=== PATIENT | male | born 1945 | race Caucasian/White ===

== ENCOUNTER → 2019-04-07 | Outpatient (REF) ==
[2019-04-07 14:39] LABS: RUBELLA IgG QUALITATIVE IMMUNE (IMMUNE)
== END ==
LOC: M LAB 13:25
PROVIDERS: ATTEND Nurse Practitioner Adult Health
DX: Z02.89 Encounter for other administrative examinations (principal)

== ENCOUNTER → 2019-06-04 | Outpatient (CLI) | payer BC | LOC: M LRY 16:03 | PROVIDERS: ATTEND Urology | DX: C61 Malignant neoplasm of prostate (principal) | CPT/HCPCS: 36415; G0103 ==

== ENCOUNTER → 2019-09-18 | Outpatient (CLI) | payer BC ==
[2019-09-18 19:07] LABS: HEMATOCRIT 41.5 % (42.0-52.0); HEMOGLOBIN 13.9 g/dl (13.5-17.5); MEAN CORPUSCULAR HEMOGLOBIN 32.1 pg (27.0-33.0); MEAN CORPUSCULAR HGB CONC 33.5 g/dl (32.0-36.5); MEAN CORPUSCULAR VOLUME 95.8 fl (80.0-96.0); PLATELET COUNT, AUTOMATED 275 10^3/uL (150-450); RED BLOOD COUNT 4.33 10^6/uL (4.30-6.10); WHITE BLOOD COUNT 5.2 10^3/uL (4.0-10.0)
[2019-09-18 19:19] LABS: ALT/SGPT 27 U/L (12-78); BILIRUBIN,TOTAL 0.6 MG/DL (0.2-1.0); BLOOD UREA NITROGEN 14 MG/DL (7-18); CALCIUM LEVEL 8.8 MG/DL (8.8-10.2); CARBON DIOXIDE LEVEL 28 MEQ/L (21-32); CHLORIDE LEVEL 108 MEQ/L (98-107); CHOLESTEROL LEVEL 157 MG/DL (<200); CREATININE FOR GFR 1.02 MG/DL (0.70-1.30); GLOMERULAR FILTRATION RATE > 60.0 (>42); GLUCOSE, FASTING 121 MG/DL (70-100); HDL CHOLESTEROL 67 MG/DL (>40); POTASSIUM SERUM 4.2 MEQ/L (3.5-5.1); SODIUM LEVEL 141 MEQ/L (136-145); TRIGLYCERIDES LEVEL 61 MG/DL (<150)
[2019-09-18 19:20] LABS: ALBUMIN 3.9 GM/DL (3.2-5.2); CHOLESTEROL RISK RATIO 2.343 (<5); FREE T4 1.24 NG/DL (0.76-1.46); LDL CHOLESTEROL 78 MG/DL (<100); NON-HDL-C 90 MG/DL; THYROID STIMULATING HORMONE 0.956 uIU/ML (0.358-3.740); TOTAL PROTEIN 7.2 GM/DL (6.4-8.2)
== END ==
LOC: M LRY 14:34
PROVIDERS: ATTEND Internal Medicine
DX: E11.9 Type 2 diabetes mellitus without complications (principal); E78.2 Mixed hyperlipidemia; E55.9 Vitamin D deficiency, unspecified

== ENCOUNTER → 2020-02-02 | Outpatient (CLI) | payer BC | LOC: M LRY 12:38 | PROVIDERS: ATTEND Urology | DX: C61 Malignant neoplasm of prostate (principal) | CPT/HCPCS: 36415; G0103 ==

== ENCOUNTER → 2020-03-27 | Outpatient (CLI) | payer BC ==
[2020-03-27 14:32] LABS: APPEARANCE, URINE CLEAR (CLEAR); BACTERIA, URINE AUTO NEGATIVE (NEGATIVE); BILIRUBIN, URINE AUTO NEGATIVE (NEGATIVE); BLOOD, URINE BLOOD NEGATIVE (NEGATIVE); COLOR, URINE YELLOW (YELLOW); GLUCOSE, URINE (UA) AUTO NEGATIVE (NEGATIVE); HEMATOCRIT 42.5 % (42.0-52.0); HEMOGLOBIN 13.8 g/dl (13.5-17.5); KETONE, URINE AUTO TRACE mg/dL (NEGATIVE); LEUKOCYTE ESTERASE, URINE AUTO NEGATIVE (NEGATIVE); MEAN CORPUSCULAR HGB CONC 32.5 g/dl (32.0-36.5); MEAN CORPUSCULAR VOLUME 98.6 fl (80.0-96.0); MUCUS, URINE SMALL (NEGATIVE); NITRITE, URINE AUTO NEGATIVE (NEGATIVE); PLATELET COUNT, AUTOMATED 201 10^3/uL (150-450); PROTEIN, URINE AUTO NEGATIVE (NEGATIVE); RBC, URINE AUTO 0 /HPF (0-3); RED BLOOD COUNT 4.31 10^6/uL (4.30-6.10); SPECIFIC GRAVITY URINE AUTO 1.009 (1.002-1.035); SQUAMOUS EPITHELIAL CELL UR AU 0 /HPF (0-6); UROBILINOGEN, URINE AUTO 0.2 mg/dL (0.0-2.0); WBC, URINE AUTO 1 /HPF (0-3); WHITE BLOOD COUNT 4.2 10^3/uL (4.0-10.0)
[2020-03-27 14:59] LABS: ALBUMIN 3.8 GM/DL (3.2-5.2); ALT/SGPT 27 U/L (12-78); BILIRUBIN,TOTAL 0.7 MG/DL (0.2-1.0); BLOOD UREA NITROGEN 13 MG/DL (7-18); CALCIUM LEVEL 8.9 MG/DL (8.8-10.2); CARBON DIOXIDE LEVEL 29 MEQ/L (21-32); CHLORIDE LEVEL 107 MEQ/L (98-107); CHOLESTEROL LEVEL 158 MG/DL (<200); CHOLESTEROL RISK RATIO 2.633 (<5); CREATININE FOR GFR 0.97 MG/DL (0.70-1.30); FREE T4 1.25 NG/DL (0.76-1.46); GLOMERULAR FILTRATION RATE > 60.0 (>42); GLUCOSE, FASTING 124 MG/DL (70-100); HDL CHOLESTEROL 60 MG/DL (>40); LDL CHOLESTEROL 85 MG/DL (<100); NON-HDL-C 98 MG/DL; SODIUM LEVEL 140 MEQ/L (136-145); TOTAL 25(OH) VITAMIN D 33.9 NG/ML (30.0-100.0); TOTAL PROTEIN 6.9 GM/DL (6.4-8.2); TRIGLYCERIDES LEVEL 63 MG/DL (<150)
[2020-03-27 15:14] LABS: CREATININE, URINE 45.6 MG/DL; MALB URINE SIEMENS 6.6 MG/L; MAU/CREAT RATIO 14.4 MCG/MG (0.0-30.0)
[2020-03-27 15:53] LABS: HEMOGLOBIN A1c 6.3 %
== END ==
LOC: M LRY 10:07
PROVIDERS: ATTEND Internal Medicine
DX: E11.9 Type 2 diabetes mellitus without complications (principal); E55.9 Vitamin D deficiency, unspecified; Z12.5 Encounter for screening for malignant neoplasm of prostate
CPT/HCPCS: 36415; 80053; 80061; 81001; 82043; 82306; 83036; 84439; 85027; G0103

== ENCOUNTER 2020-07-15 20:03 | Inpatient (IN) | payer BC ==
[~2020-07-15] VITALS: Ht 170.2 cm; Wt 85.5 kg
[~2020-07-15 20:03] MED LIST: SYMBICORT 160/4.5MCG INHALER 6GM INH SCH
[2020-07-15] MEDS ORDERED: ACETAMINOPHEN TAB 650MG DOSE (2X325MG) PO ONE (20:30)
[2020-07-15] MEDS ORDERED: methylPREDNISolone 125MG 2ML VIAL IV ONE (20:30)
[2020-07-15] MEDS ORDERED: IBUPROFEN 800 MG TAB PO ONE (20:30)
[2020-07-15 20:49] LABS: BASO % 0.1 % (0.0-1.0); HEMATOCRIT 46.9 % (42.0-52.0); HEMOGLOBIN 15.2 g/dl (13.5-17.5); LYMPH # 0.4 10^3/uL (1.5-5.0); LYMPH % 4.7 % (24.0-44.0); MEAN CORPUSCULAR HEMOGLOBIN 30.7 pg (27.0-33.0); MEAN CORPUSCULAR HGB CONC 32.4 g/dl (32.0-36.5); MEAN CORPUSCULAR VOLUME 94.7 fl (80.0-96.0); MONO # 0.5 10^3/uL (0.0-0.8); NEUTROPHILS # 7.4 10^3/uL (1.5-8.5); NEUTROPHILS % 88.8 % (36.0-66.0); PLATELET COUNT, AUTOMATED 182 10^3/uL (150-450); RED BLOOD COUNT 4.95 10^6/uL (4.30-6.10); WHITE BLOOD COUNT 8.3 10^3/uL (4.0-10.0)
[2020-07-15] MEDS: COMBIVENT RESPIMAT 100-20MCG INHALER 4GM INH SCH (20:59)
[2020-07-15 21:03] LABS: ABG BASE EXCESS -0.9 (-2.0-2.0); ABG HCO3 23.3 MEQ/L (22.0-26.0); ABG O2 SATURATION 97.9 % (95.0-99.0); ABG PARTIAL PRESSURE CO2 37.2 mmHg (35.0-45.0); ABG PARTIAL PRESSURE O2 97.9 mmHg (75.0-100.0); ABG STANDARD HCO3 23.8 MEQ/L (22.0-26.0); ABG TOTAL CO2 24.4 MEQ/L (23.0-31.0); ABG pH (ARTERIAL) 7.414 UNITS (7.350-7.450)
[2020-07-15] MEDS ORDERED: DOXY100C PO (21:03)
[2020-07-15] MEDS ORDERED: SIMV20TA22 PO (21:03)
[2020-07-15] MEDS ORDERED: BENZ-18 PO (21:03)
[2020-07-15] MEDS ORDERED: DORZ2SOL5 OU (21:03)
[2020-07-15] MEDS ORDERED: MONT5TAB2 PO (21:03)
[2020-07-15] MEDS ORDERED: ALBU8.5H INH (21:03)
[2020-07-15] MEDS ORDERED: TRAM50TA2 PO (21:03)
[2020-07-15] MEDS ORDERED: OMEP-221 PO (21:03)
[2020-07-15] MEDS ORDERED: PRED20TA PO (21:03)
[2020-07-15] MEDS ORDERED: LATA0.0015 OU (21:03)
[2020-07-15] MEDS ORDERED: SALMDISK INH (21:03)
[2020-07-15] MEDS ORDERED: NABU-51 PO (21:03)
--- NOTE | 2020-07-15 21:16 | REPVR ---
PROCEDURE INFORMATION: Exam: XR Chest, 1 View Exam date and time: 07/15/20 (8:54pm) Age: 74 years old Clinical indication: Covid evaluation TECHNIQUE: Imaging protocol: Portable CXR Views: 1 view COMPARISON: No relevant prior studies available FINDINGS: Lungs: Unremarkable. No consolidation. Pleural space: Unremarkable. No pleural effusions. No pneumothorax. Heart/Mediastinum: Cardiomegaly with left ventricular prominence. Bones/joints: Unremarkable. IMPRESSION: No acute findings. The Electronically signed by: Patricia Agudelo On 07/15/2020 21:16:39 PM
[2020-07-15 21:24] LABS: ALBUMIN 3.4 GM/DL (3.2-5.2); ALT/SGPT 28 U/L (12-78); BILIRUBIN,TOTAL 0.7 MG/DL (0.2-1.0); BLOOD UREA NITROGEN 13 MG/DL (7-18); CALCIUM LEVEL 8.8 MG/DL (8.8-10.2); CARBON DIOXIDE LEVEL 24 MEQ/L (21-32); CHLORIDE LEVEL 105 MEQ/L (98-107); CK-MB VALUE MASS 1.1 NG/ML (<3.6); CPK CREATINE PHOSPHOKINASE 147 U/L (39-308); CREATININE FOR GFR 0.97 MG/DL (0.70-1.30); FERRITIN 624 NG/ML (26-388); GLOMERULAR FILTRATION RATE > 60.0 (>42); GLUCOSE, FASTING 133 MG/DL (70-100); LDH LACTATE DEHYDROGENASE 367 U/L (87-241); MB/CK RELATIVE INDEX 0.75 (< OR =4); POTASSIUM SERUM 4.1 MEQ/L (3.5-5.1); SODIUM LEVEL 137 MEQ/L (136-145); TOTAL PROTEIN 7.5 GM/DL (6.4-8.2); TROPONIN I < 0.02 NG/ML (< 0.10)
[2020-07-15] MEDS ORDERED: ALBUTEROL SULFATE 2.5 MG/0.5 ML INH NEB SOLN NEB PRN (22:30)
[2020-07-15] MEDS ORDERED: MOM 30ML SUSPENSION UDC PO PRN (22:30)
[2020-07-15] MEDS ORDERED: MAALOX 30 ML SUSP *UDC PO PRN (22:30)
[2020-07-15] MEDS ORDERED: MAG SULF 1GM/100ML (MAG RUN) 1 GM in IV 1 EA IV ONE (23:00)
[2020-07-16] MEDS ORDERED: LevoFLOXacin IV 750 MG in IV 1 EA IV SCH ×2
[2020-07-16] MEDS ORDERED: traMADol 50 MG TAB PO PRN (00:30)
--- NOTE | 2020-07-16 00:32 | HPEPDOC ---
[facility] Medical History & Physical Date of Admission Jul 15, 2020 Date of Service: Jul 15, 2020 Primary Care Physician: Thong Cote MD Attending Physician: TRANG ALLEN MD History and Physical TIME OF SERVICE: 11:20 PM CHIEF COMPLAINT: Dyspnea HISTORY OF PRESENT ILLNESS: This 74-year-old gentleman developed cough productive of white sputum and shortness of breath 3 days ago and went to an urgent care center where he was diagnosed with COVID 19. He is not sure where he got the infection as he reports practicing self-isolation except for going to the grocery stores and eating out at restaurants occasionally. He has had fevers but denies having chills, nausea, vomiting or diarrhea. Sense of smell is intact, but he reports that his sense of taste is no longer intact. He denies having any rashes or lesions on his skin. Over the last few days his shortness of breath became worse despite using his asthma inhalers more than 4 times a day, therefore he decided to come to the hospital for evaluation. Per Dr. Sheehan, the patient's O2 sats were 85% on room air and his qCSI score was 6, which puts him in the moderate risk category. REVIEW OF SYSTEMS: 12 point review of systems negative except as listed in HPI PAST MEDICAL/ SURGICAL HISTORY: Chronic asthma Chronic hypertension Dyslipidemia GERD. 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 HOME MEDICATIONS: Please see below. PHYSICAL EXAMINATION: Vital Signs Date Time Temp Pulse Resp B/P (MAP) Pulse Ox O2 Delivery O2 Flow Rate FiO2 07/15/20 20:06 101.4 78 22 196/96 96 Nasal Cannula 4.0 GEN: well-nourished / well developed/ NAD INTEGUMENT: not flushed HEENT: lips acyanotic /mucus membranes moist and pink /nasal cannula in place CVS: RRR/NMRG/ radial pulses intact / no lower extremity edema LUNGS: able to speak full sentences without stopping to take a breath / occasionally coughing / lungs are clear to auscultation bilaterally on room air MSK/EXTREMITIES: NCAT NEURO: CN 2-12 are grossly intact / speech is not dysarthric PSYCH: alert and oriented to person place and time/ able to understand and f ollow all commands LABORATORY DATA: 07/15/20 20:33 07/15/20 20:33: Immature Granulocyte % (Auto) 0.4, Neutrophils (%) (Auto) 88.8H, Lymphocytes (%) (Auto) 4.7L, Monocytes (%) (Auto) 6.0H, Eosinophils (%) (Auto) 0.0, Basophils (%) (Auto) 0.1, Neutrophils # (Auto) 7.4, Lymphocytes # (Auto) 0.4L, Monocytes # (Auto) 0.5, Eosinophils # (Auto) 0.0, Basophils # (Auto) 0.0, Nucleated Red Blood Cells % (auto) 0.0, D-Dimer, Quantitative 423.82, Anion Gap 8, Glomerular Filtration Rate > 60.0, Lactic Acid Level 1.4, Calcium Level 8.8, Ferritin 624H, Total Bilirubin 0.7, Aspartate Amino Transf (AST/SGOT) 30, Alanine Aminotransferase (ALT/SGPT) 28, Alkaline Phosphatase 69, Lactate Dehydrogenase 367H, Total Creatine Kinase 147, Creatine Kinase MB 1.1, Creatine Kinase MB Relative Index 0.75, Troponin I < 0.02, C-Reactive Protein, Quantitative 11.40H, Total Protein 7.5, Albumin 3.4, Albumin/Globulin Ratio 0.8 07/15/20 20:57: Blood Gas Bicarbonate Standard 23.8, Arterial Blood pH 7.414, Arterial Blood Partial Pressure CO2 37.2, Arterial Blood Partial Pressure O2 97.9, Arterial Blood Total CO2 24.4, Arterial Blood HCO3 23.3, Arterial Blood Base Excess -0.9, Arterial Blood Oxygen Saturation 97.9 IMAGING: Chest x-ray " IMPRESSION: No acute findings. " MICROBIOLOGY: 07/15/20 Blood Culture, Received Pending ASSESSMENT: Mr. Weaver is a 74-year-old with a history of asthma, hypertension, dyslipidemia, GERD, glaucoma, and remote history of prostate cancer who presented with complaints of cough & shortness of breath that didn't improve despite using his inhalers more often; he'll be admitted for management of acute asthma exacerbation secondary to COVID 19. PLAN: 1. Acute asthma secondary to COVID 19 infection He was hypoxic on room air and now requires supplemental oxygen Both his chest x-ray and ABG were unremarkable Reasons for admission: patient has had poor response to therapy in ED & requires frequent, regular use of inhaled 2 agonists Plan: admit to medical floor / Magnesium IV / c/w supplemental O2 / continuous pulse ox / Dunebs Q6H, Albuterol Q2HP, fluticasone inhaler Q12H & c/w montelukast / IV solumedrol/ PPI to prevent steroid induced ulcer / Tessalon Pearls / he will need to be discharged with inhaled corticosteroid i.e. Fluticasone as a part of maintenance regimen per [employer] 2019 guidelines 2. COVID-19 The cough, shortness of breath, fever and dysgeusia are due to Covid His CBC and chemistry are unremarkable except for an elevated ferritin and LDH Reason for admission: qCSI score of 6 and hypoxia with oxygen dependence Plan: contact & air borne precautions /continuous pulse ox/ supplemental O2 to target O2 sats between 92-95% / in 12 H f/u repeat WBC # (if low indicates a poor prognosis), plts (if low indicates bad prognosis), CRP (if high indicates bad prognosis), INR, BMP, troponin, fibrinogen, INR, D-dimer, PT, PTT (if patie nt has DIC indicates bad prognosis), ferritin, LDH, pending procalcitonin, sputum cx, strep pneumo, legionella to r/o bacterial PNA we will start empiric Levofloxacin, / because he is hypoxic we will start Remdesivir & and IV steroids / the daytime team and consider consulting pulmonology in the morning 3.Uncontrolled hypertension His max SBP in the ER >200 Per d/w Pharmacist Felipe Tate the patient is supposed to be on metoprolol and received a 90 day supply 6 months ago Plan: will start amlodipine 5mg QHS 4. Dyslipidemia Plan: Simvastatin 5. GERD Plan: PPI 6. Glaucoma Plan: Dorzolamide and left prosthetic eye drops DVT PROPHYLAXIS: lovenox & ASA DISPOSITION: home after more than 2 midnight's stay Home Medications Scheduled Benzonatate (Benzonatate) 100 Mg Capsule, 100 MG PO TID Dorzolamide HCl/Timolol Maleat (Dorzolamide-Timolol Eye Drops) 10 Ml Drops, 1 DROP OU DAILY Doxycycline Hyclate (Doxycycline Hyclate) 100 Mg Capsule, 100 MG PO BID STARTED 07/11/20 X 7DAYS Fluticasone Propionate (Flovent Hfa) 44 Mcg/Act Aer.w.adap, 2 PUFF INH BID Latanoprost/Pf (Latanoprost 0.005% Eye Drop) 7.5 Ml Drops, 1 DROP OU QHS Montelukast Sodium (Montelukast Sodium) 10 Mg Tablet, 10 MG PO QHS Nabumetone (Nabumetone) 500 Mg Tablet, 500 MG PO BID Omeprazole (Omeprazole) 40 Mg Capsule.dr, 40 MG PO DAILY Prednisone (Prednisone) 20 Mg Tablet, 40 MG PO DAILY STARTED 07/11/20 X 5 DAYS Salmeterol (Serevent Diskus) 50 Mcg Blst.w.dev, 1 PUFF INH BID Simvastatin (Simvastatin) 20 Mg Tablet, 20 MG PO Q2D BEDTIME Scheduled PRN Albuterol Sulfate (Albuterol Sulfate Hfa) 8.5 Gm Hfa.aer.ad, 1 PUFF INH Q4H PRN for SHORTNESS OF BREATH Tramadol HCl (Tramadol HCl) 50 Mg Tablet, 50 MG PO BID PRN for PAIN Allergies Coded Allergies: No Known Allergies (Unverified , 07/15/20) A-FIB/CHADSVASC A-FIB History Current/History of A-Fib/PAF?: No Current PO Anticoag Therapy: No TRANG ALLEN MD Jul 16, 2020 00:32
[2020-07-16] MEDS ORDERED: FLUT44IN INH (01:15)
[2020-07-16] MEDS ORDERED: IPRATROPIUM 0.5MG/ALBUTEROL 2.5MG INH SOL UD 3ML (DUONEB) NEB SCH (02:00)
[2020-07-16] MEDS: MONTELUKAST 10 MG TAB PO SCH ×2 (02:17→21:32)
[2020-07-16] MEDS: SIMVASTATIN 20 MG TAB PO SCH (02:17)
[2020-07-16] MEDS: amLODIPine 5 MG TAB PO SCH ×2 (02:18→21:33)
[2020-07-16 04:00] VITALS: BP 162/75
[2020-07-16] MEDS: COMBIVENT RESPIMAT 100-20MCG INHALER 4GM INH SCH ×4 (04:36→07:40)
[2020-07-16] MEDS: LATANOPROST 0.005% OPHTH SOLN 2.5 ML OU SCH ×2 (04:42→21:33)
[2020-07-16] MEDS: methylPREDNISolone 40MG 1ML VIAL IV SCH ×3 (06:32→21:32)
[2020-07-16] MEDS: FLUTICASONE HFA 44 MCG 10.6GM INHALER (FLOVENT) INH SCH ×2 (07:40→19:49)
[2020-07-16 08:00] VITALS: O2SAT 92
[2020-07-16] MEDS: OMEPRAZOLE 20 MG CAP PO SCH (08:19)
[2020-07-16] MEDS: ASPIRIN 81 MG ENTERIC TAB PO SCH (08:19)
[2020-07-16] MEDS: COSOPT OCUMETER PLUS 10ML (DORZOLAMIDE/TIMOLOL) OU SCH (08:20)
[2020-07-16] MEDS ORDERED: PNEUMOCOCCAL VACCINE 0.5ML SYRINGE (PNEUMOVAX 23) IM ONE (09:00)
[2020-07-16] MEDS ORDERED: ENOXAPARIN 40MG/0.4ML SYRINGE (J1650 PER 10MG) SC SCH (09:00)
[2020-07-16 09:28] LABS: BASO % 0.1 % (0.0-1.0); HEMATOCRIT 46.9 % (42.0-52.0); HEMOGLOBIN 14.8 g/dl (13.5-17.5); LYMPH % 10.8 % (24.0-44.0); MEAN CORPUSCULAR HGB CONC 31.6 g/dl (32.0-36.5); MEAN CORPUSCULAR VOLUME 95.1 fl (80.0-96.0); MONO # 0.2 10^3/uL (0.0-0.8); MONO % 2.5 % (0.0-5.0); NEUTROPHILS % 86.3 % (36.0-66.0); PLATELET COUNT, AUTOMATED 199 10^3/uL (150-450); RED BLOOD COUNT 4.93 10^6/uL (4.30-6.10); WHITE BLOOD COUNT 9.3 10^3/uL (4.0-10.0)
[2020-07-16 09:49] LABS: PROTHROMBIN TIME 13.4 SECONDS (12.5-14.3)
[2020-07-16 09:50] LABS: PARTIAL THROMBOPLASTIN TIME 31.7 SECONDS (24.2-38.5)
[2020-07-16 09:53] LABS: D-DIMER QUANT 503.03 ng/ml (<500)
[2020-07-16 10:51] LABS: FERRITIN 824 NG/ML (26-388); LDH LACTATE DEHYDROGENASE 390 U/L (87-241); MAGNESIUM LEVEL 2.9 MG/DL (1.8-2.4); NT-PRO BNP 300 PG/ML (<450); TRIGLYCERIDES LEVEL 88 MG/DL (<150); TROPONIN I < 0.02 NG/ML (< 0.10)
[2020-07-16 12:00] VITALS: BP 154/73; O2SAT 92
[2020-07-16] MEDS ORDERED: SODIUM CHLORIDE 0.9% INJ 10 ML SYR IV ONE (12:00)
--- NOTE | 2020-07-16 12:24 | ECGEPIP ---
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
--- NOTE | 2020-07-16 13:38 | IPNPDOC ---
Subjective Date Seen The patient was seen on 07/16/20. Subjective Chief Complaint/HPI Mr. Weaver is a 74 year old male with asthma and remote history of prostate cancer here with asthma exacerbation from COVID-19 respiratory infection. . Today, he is feeling better but still dyspneic. He tells me he can complete full sentences now, while prior he had difficulty. Denies fever, chest pain, abdominal pain, or dysuria. Otherwise, we talked a little bit about home. He lives alone, but he think he would be able to manage on his own but not sure. May need to revisit this topic at another time Objective Physical Examination General Exam: Positive: Alert, Cooperative, Mild Distress Eye Exam: Positive: EOMI; Negative: Sclera icteric ENT Exam: Positive: Atraumatic Neck Exam: Positive: Supple Chest Exam: Positive: Clear to auscultation Heart Exam: Positive: Rate Normal, Regular Rhythm Abdomen Exam: Positive: Normal bowel sounds, Soft; Negative: Tenderness Extremity Exam: Negative: Edema Skin Exam: Positive: Nl turgor and temperature Neuro Exam: Positive: Cranial Nerves 3-12 NL Psych Exam: Positive: Mental status NL, Mood NL Assessment /Plan Assessment Mr. Weaver is a 74 year old male with asthma and remote history of prostate cancer here with asthma exacerbation from COVID-19 respiratory infection. Imaging did not demonstrate infiltrate, but he has acute hypoxic respiratory failure requiring 4.5L of NC. He will be on Remdesivir, IV sterodis, and Lovenox. Procalcitonin low at 0.13. Will discontinue antibiotics. Plan/VTE VTE Prophylaxis Ordered?: Yes Plan 1. Asthma exacerbation 2/2 COVID 19 respiratory infection -No infiltrate on imaging, but COVID positive requiring 4.5L NC -On IV steroids, Remdesivir, and Lovenox for COVID 19 infection -On Tessalon persels for cough -Continue Singulair 2. Cataracts -continue Cosopt and Xalatan 3. Hypertension -Take 5mg of amlodipine qHS -BP elevated in the afternoon, but better in the fleecer. -Add on Lisinopril to morning to improve BP in the afternoon 4. GERD ppx -On IV steroids -Omeprazole 5. DVT ppx -Lovenox Disposition: Pending on response to COVID therapy VS, I&O, 24H, Fishbone Vital Signs/I&O Vital Signs Date Time Temp Pulse Resp B/P (MAP) Pulse Ox O2 Delivery O2 Flow Rate FiO2 07/16/20 12:00 98.8 69 17 154/73 (100) 95 Nasal Cannula 4.5 I&O- Last 24 Hours up to 6 AM 07/16/20 06:00 Intake Total 250 ml Output Total 175 ml Balance 75 ml Laboratory Data 24H LABS Laboratory Tests 2 07/15/20 20:33: Immature Granulocyte % (Auto) 0.4, Neutrophils (%) (Auto) 88.8H, Lymphocytes (%) (Auto) 4.7L, Monocytes (%) (Auto) 6.0H, Eosinophils (%) (Auto) 0.0, Basophils (%) (Auto) 0.1, Neutrophils # (Auto) 7.4, Lymphocytes # (Auto) 0.4L, Monocytes # (Auto) 0.5, Eosinophils # (Auto) 0.0, Basophils # (Auto) 0.0, Nucleated Red Blood Cells % (auto) 0.0, D-Dimer, Quantitative 423.82, Anion Gap 8, Glomerular Filtration Rate > 60.0, Lactic Acid Level 1.4, Calcium Level 8.8, Ferritin 624H, Total Bilirubin 0.7, Aspartate Amino Transf (AST/SGOT) 30, Alanine Aminotransferase (ALT/SGPT) 28, Alkaline Phosphatase 69, Lactate Dehydrogenase 367H, Total Creatine Kinase 147, Creatine Kinase MB 1.1, Creatine Kinase MB Relative Index 0.75, Troponin I < 0.02, C-Reactive Protein, Quantitative 11.40H, Total Protein 7.5, Albumin 3.4, Albumin/Globulin Ratio 0.8, Procalcitonin 0.12 07/15/20 20:57: Blood Gas Bicarbonate Standard 23.8, Arterial Blood pH 7.414, Arterial Blood Partial Pressure CO2 37.2, Arterial Blood Partial Pressure O2 97.9, Arterial Blood Total CO2 24.4, Arterial Blood HCO3 23.3, Arterial Blood Base Excess -0.9, Arterial Blood Oxygen Saturation 97.9 07/16/20 04:36: 07/16/20 08:02: Immature Granulocyte % (Auto) 0.3, Neutrophils (%) (Auto) 86.3H, Lymphocytes (%) (Auto) 10.8L, Monocytes (%) (Auto) 2.5, Eosinophils (%) (Auto) 0.0, Basophils (%) (Auto) 0.1, Neutrophils # (Auto) 8.0, Lymphocytes # (Auto) 1.0L, Monocytes # (Auto) 0.2, Eosinophils # (Auto) 0.0, Basophils # (Auto) 0.0, Nucleated Red Blood Cells % (auto) 0.0, D-Dimer, Quantitative 503.03H, Ferritin 824H, Lactate Dehydrogenase 390H, Troponin I < 0.02, C-Reactive Protein, Quantitative 12.60H, Procalcitonin 0.13, Prothrombin Time 13.4, Prothromb Time International Ratio 1.00, Activated Partial Thromboplast Time 31.7, Fibrinogen 875H, Magnesium Level 2.9H, RP-Fcv-N-Type Natriuretic Peptide 300, Triglycerides Level 88 CBC/BMP Laboratory Tests 07/15/20 20:33 07/16/20 08:02 Microbiology Microbiology 07/15/20 Blood Culture, Received Pending TOM INFANTE DO Jul 16, 2020 13:38
[2020-07-16] MEDS: lisinopriL 5 MG TAB PO SCH (14:20)
[2020-07-16 16:00] VITALS: O2SAT 92
[2020-07-16] MEDS: ALBUTEROL 90 MCG/ACT 8GM HFA INHALER INH PRN (19:49)
[2020-07-16 20:00] VITALS: BP 161/77
[2020-07-16] MEDS: RAMELTEON 8 MG TAB (ROZEREM) PO PRN (23:25)
[2020-07-17 04:00] VITALS: BP 111/59
[2020-07-17] MEDS: methylPREDNISolone 40MG 1ML VIAL IV SCH ×3 (05:37→22:18)
[2020-07-17 06:56] LABS: HEMATOCRIT 44.9 % (42.0-52.0); HEMOGLOBIN 14.2 g/dl (13.5-17.5); MEAN CORPUSCULAR HEMOGLOBIN 30.2 pg (27.0-33.0); MEAN CORPUSCULAR HGB CONC 31.6 g/dl (32.0-36.5); MEAN CORPUSCULAR VOLUME 95.5 fl (80.0-96.0); PLATELET COUNT, AUTOMATED 212 10^3/uL (150-450); WHITE BLOOD COUNT 9.6 10^3/uL (4.0-10.0)
[2020-07-17 07:33] LABS: BLOOD UREA NITROGEN 35 MG/DL (7-18); C REACTIVE PROTEIN QUANTITATIV 8.23 MG/DL (0.00-0.30); CALCIUM LEVEL 8.6 MG/DL (8.8-10.2); CARBON DIOXIDE LEVEL 25 MEQ/L (21-32); CHLORIDE LEVEL 107 MEQ/L (98-107); CREATININE FOR GFR 1.01 MG/DL (0.70-1.30); FERRITIN 1061 NG/ML (26-388); GLOMERULAR FILTRATION RATE > 60.0 (>42); GLUCOSE, FASTING 187 MG/DL (70-100); LDH LACTATE DEHYDROGENASE 391 U/L (87-241); MAGNESIUM LEVEL 2.6 MG/DL (1.8-2.4); POTASSIUM SERUM 4.3 MEQ/L (3.5-5.1); SODIUM LEVEL 139 MEQ/L (136-145)
[2020-07-17 07:41] VITALS: BP 120/59
[2020-07-17] MEDS: FLUTICASONE HFA 44 MCG 10.6GM INHALER (FLOVENT) INH SCH ×2 (07:51→22:21)
[2020-07-17 08:00] VITALS: O2SAT 93
[2020-07-17] MEDS: ASPIRIN 81 MG ENTERIC TAB PO SCH (09:22)
[2020-07-17] MEDS: lisinopriL 5 MG TAB PO SCH (09:22)
[2020-07-17] MEDS: OMEPRAZOLE 20 MG CAP PO SCH (09:22)
[2020-07-17] MEDS: ENOXAPARIN 40MG/0.4ML SYRINGE (J1650 PER 10MG) SC SCH ×2 (09:22→22:18)
[2020-07-17] MEDS: COSOPT OCUMETER PLUS 10ML (DORZOLAMIDE/TIMOLOL) OU SCH (09:23)
[2020-07-17] MEDS: SODIUM CHLORIDE 0.9% INJ 10 ML SYR IV SCH (10:12)
--- NOTE | 2020-07-17 14:08 | IPNPDOC ---
Subjective Date Seen The patient was seen on 07/17/20. Subjective Chief Complaint/HPI HISTORY OF PRESENT ILLNESS: Pt was seen at bedside this am. No acute complaints. Doing well and able to wean O2 slowly. Currently able to tolerate O2 weaning from 12L -> 10L. Will call family and update them on her status today. REVIEW OF SYSTEMS: CONSTITUTIONAL: No fevers, chills, diaphoresis overnight HEENT: No blurred vision, loss of vision, or headache, no hearing loss CARDIOVASCULAR: patient denies chest pain, palpitations. RESPIRATORY: patient denies shortness of breath, cough, hemoptysis. GASTROINTESTINAL: No epigastric abdominal pain, constipation GENITOURINARY: No dysuria SKIN: patient denies rashes, necrotic looking skin noted MUSCULOSKELETAL: patient denies joint pain, neck pain. NEUROLOGICAL: No focal neuro deficits, strength 4/5 throughout PSYCHIATRIC: appropriate mood and affect ENDOCRINE: patient denies polyuria, heat intolerance, cold intolerance HEMATOLOGIC/LYMPHATIC: patient denies easy bruising, no visible bleeding PHYSICAL EXAMINATION: VITAL SIGNS: please see below General: NAD, lying in bed, comfortable; satting 98% on 10L NC HEENT: PERRLA, EOMI, sclerae non jaundiced, no hearing loss Neck: supple, normal ROM, no JVD Respiratory: lungs CTAB, no wheeze, no rales, no crackles CVS: Sinus rhythm, normal S1, S2, no murmurs Abdomen: non distended and non tender on palpation, + BS, no guarding Extremities: no edema, pulses 2+ lower extr MSK: no joint deformities, normal ROM, left CVA tenderness to percussion Neuro: no focal neuro deficits, moving all 4 extremities, CN2-12 intact. Strength 4/5 in all 4 extremities. No nystagmus Psych: calm, cooperative, AAO x 3 ASSESSMENT AND PLAN: This is a 74 year old male with asthma and remote history of prostate cancer here with asthma exacerbation from COVID-19 respiratory infection. Imaging did not demonstrate infiltrate, but he has acute hypoxic respiratory failure and is admitted for further management and started on remdisivir and steroids. # Asthma exacerbation 2/2 COVID 19 respiratory infection -Requiring 10L NC satting at 98%- will continue to wean as tolerated by patient - Continue solumedrol 40mg TID - continue remdisivir - repeat XR chest tomorrow am - Continue Lovenox BID - Will update family of the plan today - C/w Tessalon perles for cough - C/w Singulair # Hx of Cataracts -C/w with home meds Cosopt and Xalatan # Hypertension -C/w amlodipine qHS -C/w lisipnopril DVT ppx: Lovenox BID GI ppx: Prilosec Fluids :none Code: Full Disposition: Continue to wean off of 10L and c/w PT/OT as tolerated. Will update family today. Objective Physical Examination General Exam: Positive: Alert, Cooperative, Mild Distress Eye Exam: Positive: EOMI; Negative: Sclera icteric ENT Exam: Positive: Atraumatic Neck Exam: Positive: Supple Chest Exam: Positive: Clear to auscultation Heart Exam: Positive: Rate Normal, Regular Rhythm Abdomen Exam: Positive: Normal bowel sounds, Soft; Negative: Tenderness Extremity Exam: Negative: Edema Skin Exam: Positive: Nl turgor and temperature Neuro Exam: Positive: Cranial Nerves 3-12 NL Psych Exam: Positive: Mental status NL, Mood NL Assessment /Plan Plan/VTE VTE Prophylaxis Ordered?: Yes VS, I&O, 24H, Fishbone Vital Signs/I&O Vital Signs Date Time Temp Pulse Resp B/P (MAP) Pulse Ox O2 Delivery O2 Flow Rate FiO2 07/17/20 13:35 95 Nasal Cannula 8.0 07/17/20 09:22 120/59 07/17/20 07:41 96.8 69 19 I&O- Last 24 Hours up to 6 AM 07/17/20 06:00 Intake Total 860 ml Balance 860 ml Laboratory Data 24H LABS Laboratory Tests 2 07/17/20 05:58: Nucleated Red Blood Cells % (auto) 0.0, D-Dimer, Quantitative 411.13, Anion Gap 7L, Glomerular Filtration Rate > 60.0, Calcium Level 8.6L, Magnesium Level 2.6H, Ferritin 1061H, Lactate Dehydrogenase 391H, C-Reactive Protein, Quantitative 8.23H CBC/BMP Laboratory Tests 07/17/20 05:58 Microbiology Microbiology 07/15/20 Blood Culture - Preliminary, Resulted No growth after 24 hours . All specim... GME ATTESTATION GME ATTESTATION My faculty preceptor for this patient encounter was physically present during the encounter and was fully available. All aspects of the patient interview, examination, medical decision making process, and medical care plan development were reviewed and approved by the faculty preceptor. The faculty preceptor is aware and concurs with the plan as stated in the body of this note and will attest to such by his/her cosignature. ATTENDING NOTE I, Eamon Barry MD, have independently examined this patient and performed my own physical exam, as well as reviewed the documentation and edited where necessary. I have discussed in detail with the resident / student the findings and plan of treatment as documented by the resident / student and edited their note. I agree with their findings and treatment plan and have edited their documentation. I will continue to follow the patient during this hospital stay. Messi Lawson DO Jul 17, 2020 14:08 EAMON BARRY MD Jul 18, 2020 12:59
[2020-07-17 15:56] VITALS: BP 111/53
[2020-07-17 20:36] VITALS: BP 125/65
[2020-07-17] MEDS: amLODIPine 5 MG TAB PO SCH (22:19)
[2020-07-17] MEDS: MONTELUKAST 10 MG TAB PO SCH (22:19)
[2020-07-17] MEDS: SIMVASTATIN 20 MG TAB PO SCH (22:20)
[2020-07-17] MEDS: LATANOPROST 0.005% OPHTH SOLN 2.5 ML OU SCH (22:20)
[2020-07-17] MEDS: RAMELTEON 8 MG TAB (ROZEREM) PO PRN (22:30)
[2020-07-18] VITALS (7 sets, daily range): BP systolic 123–132; BP diastolic 58–72; O2SAT 90–97
[2020-07-18 06:59] LABS: HEMATOCRIT 42.6 % (42.0-52.0); MEAN CORPUSCULAR HEMOGLOBIN 30.6 pg (27.0-33.0); MEAN CORPUSCULAR HGB CONC 32.9 g/dl (32.0-36.5); MEAN CORPUSCULAR VOLUME 93.2 fl (80.0-96.0); PLATELET COUNT, AUTOMATED 201 10^3/uL (150-450); RED BLOOD COUNT 4.57 10^6/uL (4.30-6.10); WHITE BLOOD COUNT 10.2 10^3/uL (4.0-10.0)
[2020-07-18 07:16] LABS: BLOOD UREA NITROGEN 43 MG/DL (7-18); C REACTIVE PROTEIN QUANTITATIV 4.17 MG/DL (0.00-0.30); CALCIUM LEVEL 8.8 MG/DL (8.8-10.2); CARBON DIOXIDE LEVEL 25 MEQ/L (21-32); CHLORIDE LEVEL 108 MEQ/L (98-107); FERRITIN 1301 NG/ML (26-388); GLOMERULAR FILTRATION RATE > 60.0 (>42); GLUCOSE, FASTING 233 MG/DL (70-100); LDH LACTATE DEHYDROGENASE 423 U/L (87-241); MAGNESIUM LEVEL 2.8 MG/DL (1.8-2.4); POTASSIUM SERUM 4.4 MEQ/L (3.5-5.1); SODIUM LEVEL 139 MEQ/L (136-145)
[2020-07-18] MEDS: ASPIRIN 81 MG ENTERIC TAB PO SCH (08:12)
[2020-07-18] MEDS: OMEPRAZOLE 20 MG CAP PO SCH (08:12)
[2020-07-18] MEDS: FLUTICASONE HFA 44 MCG 10.6GM INHALER (FLOVENT) INH SCH ×2 (08:12→21:34)
[2020-07-18] MEDS: ENOXAPARIN 40MG/0.4ML SYRINGE (J1650 PER 10MG) SC SCH ×2 (08:13→21:44)
[2020-07-18] MEDS: COSOPT OCUMETER PLUS 10ML (DORZOLAMIDE/TIMOLOL) OU SCH (08:13)
[2020-07-18] MEDS: lisinopriL 5 MG TAB PO SCH (09:00)
--- NOTE | 2020-07-18 09:41 | REP ---
INDICATION: COVID COMPARISON: 07/15/2020 TECHNIQUE: Portable AP view of the chest FINDINGS: Mediastinum and cardiac silhouette stable. Lung somers demonstrate presumed chronic interstitial changes. Subtle airspace disease and left infrahilar atelectasis cannot be excluded. No effusion. No pneumothorax. Skeletal structures demonstrate age-related degenerative changes. IMPRESSION: Chronic appearing changes. Subtle superimposed airspace disease and left basilar atelectasis cannot be excluded. Correlation with auscultation is required. <Electronically signed by Artem Esposito > 07/18/20 0937
[2020-07-18] MEDS: SODIUM CHLORIDE 0.9% INJ 10 ML SYR IV SCH (10:58)
--- NOTE | 2020-07-18 12:58 | IPNPDOC ---
Text Note Date of Service The patient was seen on 07/18/20. NOTE Subjective Pt was seen at bedside this am. He last night, desaturated and eventually has been started on high flow nasal cannula Vapotherm at 25 L, and FiO2 of 65. He is comfortable with that and is saturating 94. Physical examination General: NAD, lying in bed, comfortable; satting 98% on 10L NC HEENT: PERRLA, EOMI, sclerae non jaundiced, no hearing loss Neck: supple, normal ROM, no JVD Respiratory: lungs CTAB, no wheeze, no rales, no crackles CVS: Sinus rhythm, normal S1, S2, no murmurs Abdomen: non distended and non tender on palpation, + BS, no guarding Extremities: no edema, pulses 2+ lower extr MSK: no joint deformities, normal ROM, left CVA tenderness to percussion Neuro: no focal neuro deficits, moving all 4 extremities, CN2-12 intact. Strength 4/5 in all 4 extremities. No nystagmus Psych: calm, cooperative, AAO x 3 Assessment and plan This is a 74 year old male with asthma and remote history of prostate cancer here with acute hypoxic respiratory failure secondary to COVID-19 respiratory infection. Imaging did not demonstrate infiltrate, but because of his acute hypoxic respiratory failure. He was started on remdisivir and steroids. 1. Acute hypoxic respiratory failure 2/2 COVID 19 respiratory infection. . He has slightly worsened and now is requiring 25 L and is on 65% FiO2. Continue Solu-Medrol and is severe. X-ray was seen, which is consistent with interstitial Covid pneumonia. Continue Lovenox 40 twice a day. Continue Tessalon Perles and Singulair. Continue supplemental oxygen to maintain the saturation about 92. 2. Hypertension. Continue with amlodipine and lisinopril 3. Mild persistent asthma. We will reassess his medications on discharge. Currently he is on steroids and inhalers. DVT ppx: Lovenox BID Disposition: Unknown at this time VS,Ernie, I+O VS, [place]rolbone, I+O Laboratory Tests 07/18/20 06:30 07/18/20 06:43 Vital Signs Date Time Temp Pulse Resp B/P (MAP) Pulse Ox O2 Delivery O2 Flow Rate FiO2 07/18/20 12:00 97 HVNI-Vapotherm 25.0 65 07/18/20 09:00 123/58 07/18/20 08:00 96.7 57 18 I&O- Last 24 Hours up to 6 AM 07/18/20 05:59 Intake Total 1210 ml Balance 1210 ml NEAL BARRY MD Jul 18, 2020 12:58
[2020-07-18] MEDS: LATANOPROST 0.005% OPHTH SOLN 2.5 ML OU SCH (21:44)
[2020-07-18] MEDS: MONTELUKAST 10 MG TAB PO SCH (21:44)
[2020-07-18] MEDS: amLODIPine 5 MG TAB PO SCH (21:45)
[2020-07-19] VITALS (7 sets, daily range): BP systolic 102–135; BP diastolic 57–68; O2SAT 92
[2020-07-19] MEDS: FLUTICASONE HFA 44 MCG 10.6GM INHALER (FLOVENT) INH SCH ×2 (08:09→21:04)
[2020-07-19 08:48] LABS: HEMATOCRIT 45.4 % (42.0-52.0); HEMOGLOBIN 14.8 g/dl (13.5-17.5); MEAN CORPUSCULAR HEMOGLOBIN 30.1 pg (27.0-33.0); MEAN CORPUSCULAR HGB CONC 32.6 g/dl (32.0-36.5); MEAN CORPUSCULAR VOLUME 92.5 fl (80.0-96.0); PLATELET COUNT, AUTOMATED 231 10^3/uL (150-450); RED BLOOD COUNT 4.91 10^6/uL (4.30-6.10); WHITE BLOOD COUNT 9.9 10^3/uL (4.0-10.0)
[2020-07-19] MEDS ORDERED: dexameTHASONE 20MG/5ML VIAL (J1100 PER 1MG) IV SCH (09:00)
[2020-07-19] MEDS: ENOXAPARIN 40MG/0.4ML SYRINGE (J1650 PER 10MG) SC SCH ×2 (09:08→20:59)
[2020-07-19] MEDS: ASPIRIN 81 MG ENTERIC TAB PO SCH (09:08)
[2020-07-19] MEDS: lisinopriL 5 MG TAB PO SCH (09:08)
[2020-07-19] MEDS: COSOPT OCUMETER PLUS 10ML (DORZOLAMIDE/TIMOLOL) OU SCH (09:09)
[2020-07-19] MEDS: OMEPRAZOLE 20 MG CAP PO SCH (09:09)
[2020-07-19 09:24] LABS: BLOOD UREA NITROGEN 26 MG/DL (7-18); C REACTIVE PROTEIN QUANTITATIV 2.15 MG/DL (0.00-0.30); CALCIUM LEVEL 8.3 MG/DL (8.8-10.2); CARBON DIOXIDE LEVEL 24 MEQ/L (21-32); CHLORIDE LEVEL 105 MEQ/L (98-107); FERRITIN 1167 NG/ML (26-388); GLOMERULAR FILTRATION RATE > 60.0 (>42); GLUCOSE, FASTING 119 MG/DL (70-100); LDH LACTATE DEHYDROGENASE 514 U/L (87-241); MAGNESIUM LEVEL 2.4 MG/DL (1.8-2.4); POTASSIUM SERUM 4.1 MEQ/L (3.5-5.1); SODIUM LEVEL 138 MEQ/L (136-145)
--- NOTE | 2020-07-19 12:30 | IPNPDOC ---
Text Note Date of Service The patient was seen on 07/19/20. NOTE Subjective Pt was seen at bedside this am.. He continues to worsen from the respiratory standpoint and is on Vapotherm at 40 L, and FiO2 of 95., Though he looks very comfortable. Physical examination General: NAD, lying in bed, comfortable; satting 94% Vapotherm 40 L, FiO2 of 95 HEENT: PERRLA, EOMI, sclerae non jaundiced, no hearing loss Neck: supple, normal ROM, no JVD Respiratory: lungs CTAB, no wheeze, no rales, no crackles CVS: Sinus rhythm, normal S1, S2, no murmurs Abdomen: non distended and non tender on palpation, + BS, no guarding Extremities: no edema, pulses 2+ lower extr MSK: no joint deformities, normal ROM, left CVA tenderness to percussion Neuro: no focal neuro deficits, moving all 4 extremities, CN2-12 intact. Strength 4/5 in all 4 extremities. No nystagmus Psych: calm, cooperative, AAO x 3 Assessment and plan This is a 74 year old male with asthma and remote history of prostate cancer here with acute hypoxic respiratory failure secondary to COVID-19 respiratory infection. Imaging did not demonstrate infiltrate, but because of his acute hypoxic respiratory failure. He was started on remdisivir and steroids. 1. Acute hypoxic respiratory failure 2/2 COVID 19 respiratory infection. . He has slightly worsened and now is requiring 40 L and is on 95% FiO2. Continue dexamethasone, which has been increased to 6 twice a day now and the patient's remdesiver will be given for 10 days in total. As the patient has severe over 90. Pneumonia, X-ray was seen, which is consistent with interstitial Covid pneumonia. Continue Lovenox 40 twice a day. Continue Tessalon Perles and Singulair. Continue supplemental oxygen to maintain the saturation about 92. 2. Hypertension. Continue with amlodipine and lisinopril 3. Mild persistent asthma. We will reassess his medications on discharge. Currently he is on steroids and inhalers. DVT ppx: Lovenox BID Incentive spirometry and out of bed to chair with physical therapy. Nursing also advised for the same. Disposition: Unknown at this time VS,Victor Manuele, I+O VS, Fishbone, I+O Laboratory Tests 07/19/20 08:01 Vital Signs Date Time Temp Pulse Resp B/P (MAP) Pulse Ox O2 Delivery O2 Flow Rate FiO2 07/19/20 11:53 30 93 HVNI-Vapotherm 30.0 75 07/19/20 08:00 99.0 83 135/68 (90) I&O- Last 24 Hours up to 6 AM 07/19/20 06:00 Intake Total 730 ml Output Total 500 ml Balance 230 ml NEAL BARRY MD Jul 19, 2020 12:30
[2020-07-19] MEDS: SODIUM CHLORIDE 0.9% INJ 10 ML SYR IV SCH (12:55)
[2020-07-19] MEDS: ACETAMINOPHEN TAB 650MG DOSE (2X325MG) PO PRN (13:03)
[2020-07-19 17:07] LABS: MYCOPLASMA PNEUMONIAE IgG 111 U/mL (0-99); MYCOPLASMA PNEUMONIAE IgM <770 U/mL (0-769)
[2020-07-19] MEDS: dexameTHASONE 20MG/5ML VIAL (J1100 PER 1MG) IV SCH (20:59)
[2020-07-19] MEDS: MONTELUKAST 10 MG TAB PO SCH (21:00)
[2020-07-19] MEDS: SIMVASTATIN 20 MG TAB PO SCH (21:00)
[2020-07-19] MEDS: amLODIPine 5 MG TAB PO SCH (21:00)
[2020-07-19] MEDS: LATANOPROST 0.005% OPHTH SOLN 2.5 ML OU SCH (21:01)
[2020-07-20] VITALS (7 sets, daily range): BP systolic 94–137; BP diastolic 52–92
[2020-07-20 06:36] LABS: HEMATOCRIT 44.1 % (42.0-52.0); HEMOGLOBIN 14.8 g/dl (13.5-17.5); MEAN CORPUSCULAR HEMOGLOBIN 31.6 pg (27.0-33.0); MEAN CORPUSCULAR HGB CONC 33.6 g/dl (32.0-36.5); PLATELET COUNT, AUTOMATED 207 10^3/uL (150-450); RED BLOOD COUNT 4.69 10^6/uL (4.30-6.10)
[2020-07-20 07:07] LABS: BLOOD UREA NITROGEN 33 MG/DL (7-18); CARBON DIOXIDE LEVEL 28 MEQ/L (21-32); CHLORIDE LEVEL 104 MEQ/L (98-107); CREATININE FOR GFR 1.11 MG/DL (0.70-1.30); FERRITIN 1166 NG/ML (26-388); GLOMERULAR FILTRATION RATE > 60.0 (>42); GLUCOSE, FASTING 262 MG/DL (70-100); LDH LACTATE DEHYDROGENASE 480 U/L (87-241); MAGNESIUM LEVEL 2.6 MG/DL (1.8-2.4); POTASSIUM SERUM 4.8 MEQ/L (3.5-5.1); SODIUM LEVEL 138 MEQ/L (136-145)
[2020-07-20] MEDS: FLUTICASONE HFA 44 MCG 10.6GM INHALER (FLOVENT) INH SCH ×2 (07:42→20:09)
[2020-07-20] MEDS: ENOXAPARIN 40MG/0.4ML SYRINGE (J1650 PER 10MG) SC SCH ×2 (09:30→21:03)
[2020-07-20] MEDS: COSOPT OCUMETER PLUS 10ML (DORZOLAMIDE/TIMOLOL) OU SCH (09:30)
[2020-07-20] MEDS: ASPIRIN 81 MG ENTERIC TAB PO SCH (09:31)
[2020-07-20] MEDS: OMEPRAZOLE 20 MG CAP PO SCH (09:31)
[2020-07-20] MEDS: lisinopriL 5 MG TAB PO SCH (09:31)
[2020-07-20] MEDS: dexameTHASONE 20MG/5ML VIAL (J1100 PER 1MG) IV SCH ×2 (09:31→21:02)
--- NOTE | 2020-07-20 10:42 | IPNPDOC ---
Text Note Date of Service The patient was seen on 07/20/20. NOTE Subjective Patient seen and examined at bedside. Doing well overnight. Looks well. However, O2 requirements have increased currently saturating 96% on vapotherm 40 L at 90% FiO2. Febrile to 100.5 F yesterday afternoon, received tylenol Objective Constitutional: Alert and oriented x 3. Not in distress HEENT: PEERLA. EOMI Neck: Supple. Non-tender Cardiovascular: HS 1 + 2 present. No added sounds, murmurs, or regurgitations Respiratory: clear to auscultation bilaterally. Crackling heard on examination. No wheezing Abdomen: Soft and non-tender Extremites: no-edema Neurological: AO x 3. No FND Assessment/Plan This is a 74 year old male with asthma and remote history of prostate cancer here with acute hypoxic respiratory failure secondary to COVID-19 respiratory infection. Imaging did not demonstrate infiltrate, but because of his acute hypoxic respiratory failure. He was started on remdisivir and steroids. #Acute hypoxic respiratory failure 2/2 COVID 19 respiratory infection (worsening) -Diagnosed presumably on Jul 12 as per HPI -Currently requiring vapotherm at 40 L with 80% FIo2 to saturate 94% -CXR ordered for tomorrow (07/21). 07/18 CXR showing possible left base atelecta sis and superimposed airspace disease -Ceftriaxone and azithromycin empirically started despite negative procalcitonin level on 07/16. Procalcitonin ordered for tomorrow -Vitamin C and zinc added on 07/20 for immuno support -Guaifenecin added in addition to tessalon pearls on 07/20 given production of white sputum with cough -Given lung auscultation findings on 07/20, lasix 20 IV ordered. Follow up I/Os -Remdesivir (07/17 -07/25) + Decadron (changed to BID on 07/19) -Upright positioning in chair and incentive spirometry use encouraged -Trend inflammatory markers # Hypertension -Currently normotensive. Continue with amlodipine 5 and lisinopril 5 # Mild persistent asthma. -November c/w montelukast 10 mg qhs in house + Albuterol PRN DVT PPX: Lovenox 40 BID Diet: low sodium Disposition: awaiting clinical improvement Case discussed with Dr. Linwood Henson MD Hospitalist Resident Ernie GUZMÁN I+O VS, Fishbone, I+O Laboratory Tests 07/20/20 05:32 Vital Signs Date Time Temp Pulse Resp B/P (MAP) Pulse Ox O2 Delivery O2 Flow Rate FiO2 07/20/20 09:52 40.0 80 07/20/20 09:31 125/69 07/20/20 08:00 98.9 73 24 96 HVNI-Vapotherm I&O- Last 24 Hours up to 6 AM 07/20/20 06:00 Intake Total 790 ml Output Total 1000 ml Balance -210 ml GME ATTESTATION GME ATTESTATION My faculty preceptor for this patient encounter was physically present during the encounter and was fully available. All aspects of the patient interview, examination, medical decision making process, and medical care plan development were reviewed and approved by the faculty preceptor. The faculty preceptor is aware and concurs with the plan as stated in the body of this note and will attest to such by his/her cosignature. ATTENDING NOTE I, Eamon Palumbo MD, have independently examined this patient and performed my own physical exam, as well as reviewed the documentation and edited where necessary. I have discussed in detail with the resident / student the findings and plan of treatment as documented by the resident / student and edited their n ote. I agree with their findings and treatment plan and have edited their documentation. YEN HENSON M.D.,PGY-2 Jul 20, 2020 10:42 EAMON PALUMBO MD Jul 27, 2020 14:46
[2020-07-20] MEDS: SODIUM CHLORIDE 0.9% INJ 10 ML SYR IV SCH (12:00)
[2020-07-20] MEDS: ASCORBIC ACID 500 MG TAB PO SCH ×2 (12:30→13:06)
[2020-07-20] MEDS: cefTRIAXone SOD 1 GM in D5W MINI-BAG PLUS 50 ML IV SCH (12:39)
[2020-07-20] MEDS: ZINC SULFATE 220 MG CAP PO SCH (13:05)
[2020-07-20] MEDS: AZITHROMYCIN 250MG TABLET PO SCH (13:05)
[2020-07-20] MEDS: BENZONATATE 100 MG CAP PO PRN (13:07)
[2020-07-20] MEDS ORDERED: FUROSEMIDE 20MG/2ML VIAL (J1940) IV ONE (14:15)
[2020-07-20] MEDS: guaiFENesin 200 MG TAB PO SCH ×3 (16:29→23:48)
[2020-07-20 19:09] LABS: BODY FLUID CULTURE Not indicated. (.); LEGIONELLA ANTIGEN URINE Negative (Negative); ORGANISM ID Not indicated. (.); SPECIMEN SOURCE Urine (.); URINE STREP PNEUMONIAE ANTIGEN Negative (Negative)
[2020-07-20] MEDS: amLODIPine 5 MG TAB PO SCH (21:00)
[2020-07-20] MEDS: MONTELUKAST 10 MG TAB PO SCH (21:02)
[2020-07-20] MEDS: LATANOPROST 0.005% OPHTH SOLN 2.5 ML OU SCH (21:03)
[2020-07-21] VITALS (9 sets, daily range): BP systolic 99–124; BP diastolic 58–64; O2SAT 88–98
[2020-07-21] MEDS: guaiFENesin 200 MG TAB PO SCH ×6 (04:01→23:42)
--- NOTE | 2020-07-21 07:31 | IPNPDOC ---
Text Note Date of Service The patient was seen on 07/21/20. NOTE Subjective Patient seen and examined at bedside. Doing well overnight. Looks well. However, O2 requirements have increased currently saturating 96% on vapotherm 35 L at 85% FiO2. Objective Constitutional: Alert and oriented x 3. Not in distress HEENT: PEERLA. EOMI Neck: Supple. Non-tender Cardiovascular: HS 1 + 2 present. No added sounds, murmurs, or regurgitations Respiratory: clear to auscultation bilaterally. Crackling heard on examination. No wheezing Abdomen: Soft and non-tender Extremites: no-edema Neurological: AO x 3. No FND Assessment/Plan This is a 74 year old male with asthma and remote history of prostate cancer here with acute hypoxic respiratory failure secondary to COVID-19 respiratory infection. Imaging did not demonstrate infiltrate, but because of his acute hypoxic respiratory failure. He was started on remdesivir and steroids. #Acute hypoxic respiratory failure 2/2 COVID 19 respiratory infection (worsening) -Diagnosed presumably on Jul 12 as per HPI -Currently requiring vapotherm at 40 L with 80% FIo2 to saturate 94% -CXR on 07/21 showing minimal changes compared to previous. 07/18 CXR showing possible left base atelectasis and superimposed airspace disease -Ceftriaxone and azithromycin empirically started on 07/20 despite negative procalcitonin level on 07/16. Pending Procalcitonin levels -Vitamin C and zinc added on 07/20 for immuno support -Guaifenecin added in addition to tessalon pearls on 07/20 given production of white sputum with cough -Given lung auscultation findings on 07/20, lasix 20 IV ordered 07/20 and 07/21 -Remdesivir (07/17 -07/25) + Decadron (changed to BID on 07/19) -Upright positioning in chair and incentive spirometry use encouraged -Trend inflammatory markers q2days # Hypertension -Currently normotensive. Continue with amlodipine 5. Lisinopril held due to BP of 99/62 on 07/21 # Mild persistent asthma. -November c/w montelukast 10 mg qhs in house + Albuterol PRN DVT PPX: Lovenox 40 BID Diet: low sodium Disposition: awaiting clinical improvement. Trend inflammatory markers q2days Case discussed with Dr. Linwood Henson MD Hospitalist Resident Ernie GUZMÁN I+O Ernie GUZMÁN I+O Vital Signs Date Time Temp Pulse Resp B/P (MAP) Pulse Ox O2 Delivery O2 Flow Rate FiO2 07/21/20 04:05 98.2 65 26 124/64 (84) 88 HVNI-Vapotherm 40.0 90 I&O- Last 24 Hours up to 6 AM 07/21/20 06:00 Intake Total 360 ml Output Total 2200 ml Balance -1840 ml GME ATTESTATION GME ATTESTATION My faculty preceptor for this patient encounter was physically present during the encounter and was fully available. All aspects of the patient interview, examination, medical decision making process, and medical care plan development were reviewed and approved by the faculty preceptor. The faculty preceptor is aware and concurs with the plan as stated in the body of this note and will attest to such by his/her cosignature. ATTENDING NOTE I, Eamon Palumbo MD, have independently examined this patient and performed my own physical exam, as well as reviewed the documentation and edited where necessary. I have discussed in detail with the resident / student the findings and plan of treatment as documented by the resident / student and edited their note. I agree with their findings and treatment plan and have edited their documentation. YEN HENSON M.D.,PGY-2 Jul 21, 2020 07:31 EAMON PALUMBO MD Jul 27, 2020 14:50
[2020-07-21] MEDS: FLUTICASONE HFA 44 MCG 10.6GM INHALER (FLOVENT) INH SCH ×2 (08:28→20:39)
[2020-07-21 08:34] LABS: HEMATOCRIT 45.5 % (42.0-52.0); HEMOGLOBIN 14.9 g/dl (13.5-17.5); MEAN CORPUSCULAR HEMOGLOBIN 30.5 pg (27.0-33.0); MEAN CORPUSCULAR HGB CONC 32.7 g/dl (32.0-36.5); PLATELET COUNT, AUTOMATED 214 10^3/uL (150-450); RED BLOOD COUNT 4.89 10^6/uL (4.30-6.10); WHITE BLOOD COUNT 9.1 10^3/uL (4.0-10.0)
[2020-07-21 08:59] LABS: BLOOD UREA NITROGEN 34 MG/DL (7-18); C REACTIVE PROTEIN QUANTITATIV 6.35 MG/DL (0.00-0.30); CALCIUM LEVEL 8.1 MG/DL (8.8-10.2); CARBON DIOXIDE LEVEL 24 MEQ/L (21-32); CHLORIDE LEVEL 103 MEQ/L (98-107); FERRITIN 1497 NG/ML (26-388); GLOMERULAR FILTRATION RATE > 60.0 (>42); GLUCOSE, FASTING 227 MG/DL (70-100); LDH LACTATE DEHYDROGENASE 559 U/L (87-241); MAGNESIUM LEVEL 2.7 MG/DL (1.8-2.4); POTASSIUM SERUM 4.6 MEQ/L (3.5-5.1); SODIUM LEVEL 138 MEQ/L (136-145)
[2020-07-21] MEDS: lisinopriL 5 MG TAB PO SCH (09:00)
[2020-07-21] MEDS: ASPIRIN 81 MG ENTERIC TAB PO SCH (09:51)
[2020-07-21] MEDS: COSOPT OCUMETER PLUS 10ML (DORZOLAMIDE/TIMOLOL) OU SCH (09:52)
[2020-07-21] MEDS: AZITHROMYCIN 250MG TABLET PO SCH (09:52)
[2020-07-21] MEDS: dexameTHASONE 20MG/5ML VIAL (J1100 PER 1MG) IV SCH ×2 (09:52→20:29)
[2020-07-21] MEDS: ENOXAPARIN 40MG/0.4ML SYRINGE (J1650 PER 10MG) SC SCH ×2 (09:53→20:29)
[2020-07-21] MEDS ORDERED: FUROSEMIDE 20MG/2ML VIAL (J1940) IV ONE (10:00)
[2020-07-21] MEDS: ZINC SULFATE 220 MG CAP PO SCH (10:14)
[2020-07-21] MEDS: OMEPRAZOLE 20 MG CAP PO SCH (10:15)
--- NOTE | 2020-07-21 11:08 | REP ---
INDICATION: COVID COMPARISON: 07/18/2020, 07/15/2020 TECHNIQUE: Portable AP view of the chest FINDINGS: The mediastinum and cardiac silhouette are stable and within normal limits for portable technique. The lung somers demonstrate stable chronic appearing changes although subtle scattered interstitial and early alveolar infiltrates cannot definitively be excluded. No discrete focal consolidation. No effusion. No pneumothorax. IMPRESSION: Chronic appearing changes similar to prior examination. No focal consolidation although subtle interstitial and early alveolar infiltrates cannot be excluded and require correlation with auscultation. <Electronically signed by Artem Esposito > 07/21/20 1104
[2020-07-21] MEDS: SODIUM CHLORIDE 0.9% INJ 10 ML SYR IV SCH (11:40)
[2020-07-21] MEDS: cefTRIAXone SOD 1 GM in D5W MINI-BAG PLUS 50 ML IV SCH (11:47)
[2020-07-21] MEDS: MONTELUKAST 10 MG TAB PO SCH (20:28)
[2020-07-21] MEDS: RAMELTEON 8 MG TAB (ROZEREM) PO PRN (20:28)
[2020-07-21] MEDS: BENZONATATE 100 MG CAP PO PRN (20:28)
[2020-07-21] MEDS: SIMVASTATIN 20 MG TAB PO SCH (20:29)
[2020-07-21] MEDS: amLODIPine 5 MG TAB PO SCH (20:29)
[2020-07-21] MEDS: LATANOPROST 0.005% OPHTH SOLN 2.5 ML OU SCH (20:29)
[2020-07-22] VITALS: BP 132/62; O2SAT 88
[2020-07-22] MEDS: guaiFENesin 200 MG TAB PO SCH ×5 (03:16→18:12)
[2020-07-22 04:00] VITALS: BP 122/60
[2020-07-22 07:08] LABS: BASO % 0.5 % (0.0-1.0); HEMOGLOBIN 15.1 g/dl (13.5-17.5); LYMPH # 0.4 10^3/uL (1.5-5.0); LYMPH % 4.9 % (24.0-44.0); MEAN CORPUSCULAR HEMOGLOBIN 30.1 pg (27.0-33.0); MEAN CORPUSCULAR HGB CONC 31.5 g/dl (32.0-36.5); MEAN CORPUSCULAR VOLUME 95.6 fl (80.0-96.0); MONO # 0.3 10^3/uL (0.0-0.8); MONO % 3.9 % (0.0-5.0); NEUTROPHILS # 7.2 10^3/uL (1.5-8.5); NEUTROPHILS % 89.1 % (36.0-66.0); PLATELET COUNT, AUTOMATED 219 10^3/uL (150-450); RED BLOOD COUNT 5.02 10^6/uL (4.30-6.10); WHITE BLOOD COUNT 8.1 10^3/uL (4.0-10.0)
[2020-07-22 07:41] LABS: ALBUMIN 2.3 GM/DL (3.2-5.2); ALT/SGPT 23 U/L (12-78); BILIRUBIN,TOTAL 0.8 MG/DL (0.2-1.0); BLOOD UREA NITROGEN 34 MG/DL (7-18); CARBON DIOXIDE LEVEL 24 MEQ/L (21-32); CHLORIDE LEVEL 104 MEQ/L (98-107); CREATININE FOR GFR 0.95 MG/DL (0.70-1.30); GLOMERULAR FILTRATION RATE > 60.0 (>42); GLUCOSE, FASTING 225 MG/DL (70-100); POTASSIUM SERUM 4.8 MEQ/L (3.5-5.1); SODIUM LEVEL 138 MEQ/L (136-145)
[2020-07-22 08:00] VITALS: BP 112/64
[2020-07-22] MEDS: FLUTICASONE HFA 44 MCG 10.6GM INHALER (FLOVENT) INH SCH ×2 (08:01→20:16)
[2020-07-22] MEDS: lisinopriL 5 MG TAB PO SCH ×2 (09:00→09:44)
--- NOTE | 2020-07-22 09:36 | IPNPDOC ---
Subjective Date Seen The patient was seen on 07/22/20. Subjective Chief Complaint/HPI Subjective: Pt does not have any acute complaints. Denies fever, but does have some chills on and off. Will try and prone >18 hours or as long as patient can tolerate. currently on 40L Vapotherm and 100% FIO2 satting 98%. inflammatory markers improving. No acute events reported by nursing overnight PHYSICAL EXAMINATION: VITAL SIGNS: please see below General: NAD, lying in bed, comfortable HEENT: PERRLA, EOMI, sclerae non jaundiced, no hearing loss Neck: supple, normal ROM, no JVD Respiratory: lungs CTAB, no wheeze, no rales, no crackles CVS: Sinus rhythm, normal S1, S2, no murmurs Abdomen: non distended and non tender on palpation, + BS, no guarding Extremities: no edema, pulses 2+ lower extr MSK: no joint deformities, normal ROM, left CVA tenderness to percussion Neuro: no focal neuro deficits, moving all 4 extremities, CN2-12 intact. Strength 4/5 in all 4 extremities. No nystagmus Psych: calm, cooperative, AAO x 3 ASSESSMENT AND PLAN: This is a 74 year old male with asthma and remote history of prostate cancer here with asthma exacerbation from COVID-19 respiratory infection. Imaging did not demonstrate infiltrate, but he has acute hypoxic respiratory failure and is admitted for further management and started on remdisivir and steroids. # Asthma exacerbation 2/2 COVID 19 respiratory infection - COVID + presumbly 07/12 per HPI - Initially requiring 10L NC satting at 98%; currently requiring vapotherm 40L with 80% FIO2 satting at 98% - Continue Decadron (changed to BID on 07/19) - continue remdisivir (07/17 -07/25) - repeat XR chest 07/21 shows min changes compared to 07/18 (possible L base atelectasis and superimposed airspace dis - Continue Lovenox BID - C/w Tessalon perles for cough - C/w Singulair - c/w vit C and zinc (07/20- ) - Encourage incentive spirometry - Will trend inflammatory markers q2days # Hx of Cataracts -C/w with home meds Cosopt and Xalatan # Hypertension -C/w amlodipine qHS -C/w lisipnopril DVT ppx: Lovenox BID GI ppx: Prilosec Fluids :none Code: Full Disposition: c/w PT/OT. Disposition: awaiting clinical improvement. trending inflammatory markers q2d Objective Physical Examination General Exam: Positive: Alert, Cooperative, Mild Distress Eye Exam: Positive: EOMI; Negative: Sclera icteric ENT Exam: Positive: Atraumatic Neck Exam: Positive: Supple Chest Exam: Positive: Clear to auscultation Heart Exam: Positive: Rate Normal, Regular Rhythm Abdomen Exam: Positive: Normal bowel sounds, Soft; Negative: Tenderness Extremity Exam: Negative: Edema Skin Exam: Positive: Nl turgor and temperature Neuro Exam: Positive: Cranial Nerves 3-12 NL Psych Exam: Positive: Mental status NL, Mood NL Assessment /Plan Plan/VTE VTE Prophylaxis Ordered?: Yes VS, I&O, 24H, Fishbone Vital Signs/I&O Vital Signs Date Time Temp Pulse Resp B/P (MAP) Pulse Ox O2 Delivery O2 Flow Rate FiO2 07/22/20 05:54 87 HVNI-Vapotherm 40.0 100 07/22/20 04:00 97.3 66 26 122/60 (80) I&O- Last 24 Hours up to 6 AM 07/22/20 06:00 Intake Total 860 ml Output Total 700 ml Balance 160 ml Laboratory Data 24H LABS Laboratory Tests 2 07/22/20 06:31: Immature Granulocyte % (Auto) 1.6, Neutrophils (%) (Auto) 89.1H, Lymphocytes (%) (Auto) 4.9L, Monocytes (%) (Auto) 3.9, Eosinophils (%) (Auto) 0.0, Basophils (%) (Auto) 0.5, Neutrophils # (Auto) 7.2, Lymphocytes # (Auto) 0.4L, Monocytes # (Auto) 0.3, Eosinophils # (Auto) 0.0, Basophils # (Auto) 0.0, Nucleated Red Blood Cells % (auto) 0.0, Anion Gap 10, Glomerular Filtration Rate > 60.0, Calcium Level 8.0L, Total Bilirubin 0.8, Aspartate Amino Transf (AST/SGOT) 23, Alanine Aminotransferase (ALT/SGPT) 23, Alkaline Phosphatase 72, Total Protein 6.0L, Albumin 2.3L, Albumin/Globulin Ratio 0.6 CBC/BMP Laboratory Tests 07/22/20 06:31 Microbiology Microbiology 07/15/20 Blood Culture - Final, Complete NO GROWTH AFTER 5 DAYS GME ATTESTATION GME ATTESTATION My faculty preceptor for this patient encounter was physically present during the encounter and was fully available. All aspects of the patient interview, examination, medical decision making process, and medical care plan development were reviewed and approved by the faculty preceptor. The faculty preceptor is aware and concurs with the plan as stated in the body of this note and will attest to such by his/her cosignature. ATTENDING NOTE I,Laly Crespo MD, have independently examined this patient and performed my own physical exam, as well as reviewed the documentation and edited where necessary. I have discussed in detail with the resident the findings and plan of treatment as documented by the resident and edited their note. I agree with their findings and treatment plan except for the changes noted below and have edited their documentation. I will continue to follow the patient during this hospital stay. 74 yo M with ahx of asthma and remote hx of prostate ca, presented with acute hypoxic respiratory failure 2/2 COVID-19 infection. Initial workup including CXR and procal did not suggest superimposed bacterial infection, and patient initialy required 4.5L with NC to maintain pO2 at 93%. However, patient decompensated and high flow supplementation with vapotherm, presently on 40L with FiO 90%. Receiving remdisivir and dexamethasone. Repeat procalcitonin nega tive, will DC ceftriaxone and azithromycin. Speaking full sentences this morning. AAO x 3. No acute events overnight. #COVID-19 infection: DX 07/12. Vapothem 40LPM 80% FiO2. CXR 07/21 no acute abel ges. Remdesivir (EOT 07/25). Decadron 6 mg IV BID. Tessalon perles. Incentive spirometry. Acapella. OOB to Chair. Procalcitonin negative. DC ceftriaxone and azithromycin. Encourage prone position, if unable to tolerate, lying on side. #HTN: c/w amlodipine. ACEi held due to labile bp #Asthma: singulair. Albuterol. #DVT: lovenox bid. Messi Lawson DO Jul 22, 2020 09:36 LALY CRESPO MD Jul 22, 2020 15:20
[2020-07-22] MEDS: ZINC SULFATE 220 MG CAP PO SCH (09:39)
[2020-07-22] MEDS: COSOPT OCUMETER PLUS 10ML (DORZOLAMIDE/TIMOLOL) OU SCH (09:39)
[2020-07-22] MEDS: ASPIRIN 81 MG ENTERIC TAB PO SCH (09:39)
[2020-07-22] MEDS: OMEPRAZOLE 20 MG CAP PO SCH (09:39)
[2020-07-22] MEDS: dexameTHASONE 20MG/5ML VIAL (J1100 PER 1MG) IV SCH ×2 (09:39→20:54)
[2020-07-22] MEDS: ASCORBIC ACID 500 MG TAB PO SCH (09:39)
[2020-07-22] MEDS: AZITHROMYCIN 250MG TABLET PO SCH (09:39)
[2020-07-22] MEDS: ENOXAPARIN 40MG/0.4ML SYRINGE (J1650 PER 10MG) SC SCH ×2 (09:40→20:54)
[2020-07-22] MEDS: cefTRIAXone SOD 1 GM in D5W MINI-BAG PLUS 50 ML IV SCH (11:26)
[2020-07-22] MEDS: SODIUM CHLORIDE 0.9% INJ 10 ML SYR IV SCH (11:26)
[2020-07-22 11:33] VITALS: BP 138/66
[2020-07-22 15:47] VITALS: BP 109/55
[2020-07-22 20:00] VITALS: BP 147/80
[2020-07-22] MEDS: RAMELTEON 8 MG TAB (ROZEREM) PO PRN (20:53)
[2020-07-22] MEDS: MONTELUKAST 10 MG TAB PO SCH (20:53)
[2020-07-22] MEDS: LATANOPROST 0.005% OPHTH SOLN 2.5 ML OU SCH (20:54)
[2020-07-22] MEDS: amLODIPine 5 MG TAB PO SCH (20:54)
[2020-07-23] VITALS: BP 131/71
[2020-07-23] MEDS: guaiFENesin 200 MG TAB PO SCH ×7 (00:28→21:45)
[2020-07-23 04:00] VITALS: BP 122/61
[2020-07-23 07:43] VITALS: BP 133/76
[2020-07-23] MEDS: FLUTICASONE HFA 44 MCG 10.6GM INHALER (FLOVENT) INH SCH ×2 (07:46→19:39)
[2020-07-23 07:48] LABS: HEMATOCRIT 50.7 % (42.0-52.0); MEAN CORPUSCULAR HEMOGLOBIN 30.2 pg (27.0-33.0); MEAN CORPUSCULAR HGB CONC 31.6 g/dl (32.0-36.5); MEAN CORPUSCULAR VOLUME 95.8 fl (80.0-96.0); PLATELET COUNT, AUTOMATED 195 10^3/uL (150-450); RED BLOOD COUNT 5.29 10^6/uL (4.30-6.10); WHITE BLOOD COUNT 6.8 10^3/uL (4.0-10.0)
[2020-07-23 08:09] LABS: ALBUMIN 2.3 GM/DL (3.2-5.2); ALT/SGPT 22 U/L (12-78); BILIRUBIN,TOTAL 0.9 MG/DL (0.2-1.0); BLOOD UREA NITROGEN 33 MG/DL (7-18); CALCIUM LEVEL 8.3 MG/DL (8.8-10.2); CARBON DIOXIDE LEVEL 21 MEQ/L (21-32); CHLORIDE LEVEL 105 MEQ/L (98-107); GLOMERULAR FILTRATION RATE > 60.0 (>42); GLUCOSE, FASTING 237 MG/DL (70-100); POTASSIUM SERUM 5.9 MEQ/L (3.5-5.1); SODIUM LEVEL 137 MEQ/L (136-145); TOTAL PROTEIN 6.3 GM/DL (6.4-8.2)
[2020-07-23] MEDS: ASCORBIC ACID 500 MG TAB PO SCH (09:23)
[2020-07-23] MEDS: ZINC SULFATE 220 MG CAP PO SCH (09:23)
[2020-07-23] MEDS: AZITHROMYCIN 250MG TABLET PO SCH (09:23)
[2020-07-23] MEDS: ASPIRIN 81 MG ENTERIC TAB PO SCH (09:23)
[2020-07-23] MEDS: OMEPRAZOLE 20 MG CAP PO SCH (09:23)
[2020-07-23] MEDS: dexameTHASONE 20MG/5ML VIAL (J1100 PER 1MG) IV SCH ×2 (09:26→21:44)
[2020-07-23] MEDS: COSOPT OCUMETER PLUS 10ML (DORZOLAMIDE/TIMOLOL) OU SCH (09:26)
[2020-07-23] MEDS: lisinopriL 5 MG TAB PO SCH (09:26)
[2020-07-23] MEDS: ENOXAPARIN 40MG/0.4ML SYRINGE (J1650 PER 10MG) SC SCH (09:27)
[2020-07-23] MEDS: cefTRIAXone SOD 1 GM in D5W MINI-BAG PLUS 50 ML IV SCH (11:14)
[2020-07-23] MEDS: SODIUM CHLORIDE 0.9% INJ 10 ML SYR IV SCH (11:14)
[2020-07-23 11:34] VITALS: BP 120/58
[2020-07-23] MEDS ORDERED: COMBIVENT RESPIMAT 100-20MCG INHALER 4GM INH SCH (12:00)
[2020-07-23] MEDS ORDERED: SOD POLYSTYRENE SULFONATE SUSP 15 GM/60 ML UD PO ONE (13:00)
--- NOTE | 2020-07-23 13:04 | IPNPDOC ---
Date Seen The patient was seen on 07/23/20. Progress Note SUBJECTIVE: Patient seen and examined at bedside. Vapotherm at maximum settings 40 LPM at 100% of FiO2. Patient is lying on the sided at rest, comfortable. Encouraged to prone as much as possible. Patient denies any chest pain, shortness of breath, nausea, vomiting, diarrhea, fevers or chills. Patient was afebrile overnight. OBJECTIVE PHYSICAL EXAMINATION: VITAL SIGNS: please see below General: Patient in bed lying on the side Vapotherm morning. Patient is comfortable. HEENT: PERRLA, EOMI, sclerae clear Neck: supple, normal ROM, no JVD Respiratory: Poor air entry bilaterally. Crackles heard in bilateral lung bases. CVS: RRR, normal S1, S2, no murmurs Abdo: soft, no masses, no hepatosplenomegaly, BS+, no rebound tenderness Extremities: no edema, pulses 2+ MSK: no joint deformities, normal ROM Neuro: no focal neuro deficits, moving all 4 extremities, CN2-12 intact. Strength 5/5 in all 4 extremities. No nystagmus. Psych: calm, cooperative, AAO x 3 LABORATORY DATA, IMAGING STUDIES, MICROBIOLOGY: Please see below. DVT prophylaxis ordered?: Therapeutic dose Lovenox ASSESSMENT AND PLAN: 74 yo M with ahx of asthma and remote hx of prostate ca, presented with acute hypoxic respiratory failure 2/2 COVID-19 infection. Initial workup including CXR and procal did not suggest superimposed bacterial infection, and patient initialy required 4.5L with NC to maintain pO2 at 93%. However, patient decompensated and high flow supplementation with vapotherm, presently on 40L with FiO 90%. Receiving remdisivir and dexamethasone. Repeat procalcitonin negative, stopped ceftriaxone and azithromycin. Given increasing O2 requirement, advanced AC to full dose lovenox. PROBLEMS: #COVID-19 infection: DX 07/12. Vapotherm at maximum 40LPM 100% FiO2. Remdesivir (EOT 07/25). Decadron 6 mg IV BID. Tessalon perles. Incentive spirometry. Acapella. Procalcitonin negative. DC ceftriaxone and azithromycin. Encourage prone position. Vit C. Zinc. Increased lovenox dosage to full dose, 1mg/kg q12h. #Hyperkalemia: DC lisinopril. 30 mL kyexalate ordered. Albuterol inh. Monitor BMP. #HTN: c/w amlodipine. ACEi held due to labile bp #Asthma: singulair. Albuterol. #DVT: lovenox 1 mg/kg q12h Dispo: PT/OT once oxygenation improves. VS, I&O, 24H, Fishbone Vital Signs/I&O Vital Signs Date Time Temp Pulse Resp B/P (MAP) Pulse Ox O2 Delivery O2 Flow Rate FiO2 07/23/20 11:34 96.3 70 22 120/58 (78) 100 HVNI-Vapotherm 40.0 100 I&O- Last 24 Hours up to 6 AM 07/23/20 06:00 Intake Total 420 ml Output Total 300 ml Balance 120 ml Laboratory Data 24H LABS Laboratory Tests 2 07/23/20 07:18: Nucleated Red Blood Cells % (auto) 0.0, Anion Gap 11, Glomerular Filtration Rate > 60.0, Calcium Level 8.3L, Total Bilirubin 0.9, Aspartate Amino Transf (AST/SGOT) 51H, Alanine Aminotransferase (ALT/SGPT) 22, Alkaline Phosphatase 77, Total Protein 6.3L, Albumin 2.3L, Albumin/Globulin Ratio 0.6 CBC/BMP Laboratory Tests 07/23/20 07:18 Microbiology Microbiology 07/15/20 Blood Culture - Final, Complete NO GROWTH AFTER 5 DAYS LALY CUELLO MD Jul 23, 2020 13:04
[2020-07-23 16:00] VITALS: BP 120/70
[2020-07-23 20:00] VITALS: BP 104/69
[2020-07-23] MEDS: amLODIPine 5 MG TAB PO SCH (21:00)
[2020-07-23] MEDS: ENOXAPARIN 80MG/0.8ML SYRINGE (J1650 PER 10MG) SC SCH (21:44)
[2020-07-23] MEDS: SIMVASTATIN 20 MG TAB PO SCH (21:45)
[2020-07-23] MEDS: RAMELTEON 8 MG TAB (ROZEREM) PO PRN (21:45)
[2020-07-23] MEDS: BENZONATATE 100 MG CAP PO PRN (21:46)
[2020-07-23] MEDS: ACETAMINOPHEN TAB 650MG DOSE (2X325MG) PO PRN (21:46)
[2020-07-23] MEDS: LATANOPROST 0.005% OPHTH SOLN 2.5 ML OU SCH (21:46)
[2020-07-23] MEDS: MONTELUKAST 10 MG TAB PO SCH (21:46)
[2020-07-24] VITALS: BP 121/69
[2020-07-24] MEDS: guaiFENesin 200 MG TAB PO SCH ×5 (03:47→23:27)
[2020-07-24 04:00] VITALS: BP 140/76
[2020-07-24 08:00] VITALS: BP 131/70
[2020-07-24] MEDS: FLUTICASONE HFA 44 MCG 10.6GM INHALER (FLOVENT) INH SCH ×2 (08:12→19:29)
[2020-07-24 09:29] LABS: BASO % 0.2 % (0.0-1.0); HEMOGLOBIN 17.9 g/dl (13.5-17.5); LYMPH # 0.4 10^3/uL (1.5-5.0); LYMPH % 4.5 % (24.0-44.0); MEAN CORPUSCULAR HEMOGLOBIN 30.8 pg (27.0-33.0); MEAN CORPUSCULAR HGB CONC 33.1 g/dl (32.0-36.5); MEAN CORPUSCULAR VOLUME 92.8 fl (80.0-96.0); MONO # 0.2 10^3/uL (0.0-0.8); MONO % 2.6 % (0.0-5.0); NEUTROPHILS # 7.9 10^3/uL (1.5-8.5); NEUTROPHILS % 92.2 % (36.0-66.0); PLATELET COUNT, AUTOMATED 232 10^3/uL (150-450); RED BLOOD COUNT 5.82 10^6/uL (4.30-6.10); WHITE BLOOD COUNT 8.5 10^3/uL (4.0-10.0)
[2020-07-24 09:48] LABS: BLOOD UREA NITROGEN 35 MG/DL (7-18); CALCIUM LEVEL 8.3 MG/DL (8.8-10.2); CARBON DIOXIDE LEVEL 20 MEQ/L (21-32); CHLORIDE LEVEL 107 MEQ/L (98-107); CREATININE FOR GFR 0.97 MG/DL (0.70-1.30); GLOMERULAR FILTRATION RATE > 60.0 (>42); GLUCOSE, FASTING 250 MG/DL (70-100); MAGNESIUM LEVEL 2.7 MG/DL (1.8-2.4); POTASSIUM SERUM 4.5 MEQ/L (3.5-5.1); SODIUM LEVEL 142 MEQ/L (136-145)
[2020-07-24 09:59] LABS: INR 1.25; PARTIAL THROMBOPLASTIN TIME 33.2 SECONDS (24.2-38.5)
[2020-07-24 10:02] LABS: D-DIMER QUANT 1012.43 ng/ml (<500)
[2020-07-24] MEDS: dexameTHASONE 20MG/5ML VIAL (J1100 PER 1MG) IV SCH ×2 (10:25→20:53)
[2020-07-24] MEDS: COSOPT OCUMETER PLUS 10ML (DORZOLAMIDE/TIMOLOL) OU SCH (10:25)
[2020-07-24] MEDS: ENOXAPARIN 80MG/0.8ML SYRINGE (J1650 PER 10MG) SC SCH ×2 (10:25→20:53)
[2020-07-24 10:26] LABS: C REACTIVE PROTEIN QUANTITATIV 1.31 MG/DL (0.00-0.30); CPK CREATINE PHOSPHOKINASE 103 U/L (39-308); FERRITIN 2424 NG/ML (26-388); LDH LACTATE DEHYDROGENASE 776 U/L (87-241); TROPONIN I < 0.02 NG/ML (< 0.10)
[2020-07-24] MEDS: AZITHROMYCIN 250MG TABLET PO SCH (10:26)
[2020-07-24] MEDS: ASCORBIC ACID 500 MG TAB PO SCH (10:26)
[2020-07-24] MEDS: ZINC SULFATE 220 MG CAP PO SCH (10:26)
[2020-07-24] MEDS: OMEPRAZOLE 20 MG CAP PO SCH (10:26)
[2020-07-24] MEDS: ASPIRIN 81 MG ENTERIC TAB PO SCH (10:26)
[2020-07-24] MEDS: SODIUM CHLORIDE 0.9% INJ 10 ML SYR IV SCH (12:11)
--- NOTE | 2020-07-24 12:16 | IPNPDOC ---
Date Seen The patient was seen on 07/24/20. Progress Note SUBJECTIVE: Patient seen and examined at bedside. Vapotherm at maximum settings 40 LPM at 100% of FiO2, Saturating at 97-98% when prone. Patient is lying on the sided at rest, comfortable. Encouraged to prone as much as possible. Patient denies any chest pain, shortness of breath, nausea, vomiting, diarrhea, fevers or chills. Patient was afebrile overnight. OBJECTIVE PHYSICAL EXAMINATION: VITAL SIGNS: please see below General: Patient in bed lying on the side Vapotherm morning. Patient is comfortable. HEENT: PERRLA, EOMI, sclerae clear Neck: supple, normal ROM, no JVD Respiratory: Poor air entry bilaterally. Crackles heard in bilateral lung bases. CVS: RRR, normal S1, S2, no murmurs Abdo: soft, no masses, no hepatosplenomegaly, BS+, no rebound tenderness Extremities: no edema, pulses 2+ MSK: no joint deformities, normal ROM Neuro: no focal neuro deficits, moving all 4 extremities, CN2-12 intact. Strength 5/5 in all 4 extremities. No nystagmus. Psych: calm, cooperative, AAO x 3 LABORATORY DATA, IMAGING STUDIES, MICROBIOLOGY: Please see below. DVT prophylaxis ordered?: Therapeutic dose Lovenox ASSESSMENT AND PLAN: 74 yo M with ahx of asthma and remote hx of prostate ca, pr esented with acute hypoxic respiratory failure 2/2 COVID-19 infection. Initial workup including CXR and procal did not suggest superimposed bacterial infection, and patient initialy required 4.5L with NC to maintain pO2 at 93%. However, patient decompensated and high flow supplementation with vapotherm, presently on 40L with FiO 90%. Receiving remdisivir and dexamethasone. Repeat procalcitonin negative, stopped ceftriaxone and azithromycin. Given increasing O2 requirement, advanced AC to full dose lovenox. PROBLEMS: #COVID-19 infection: DX 07/12. Vapotherm at maximum 40LPM 100% FiO2. Remdesivir (EOT 07/25). Decadron 6 mg IV BID. Tessalon perles. Incentive spirometry. Acapella. Procalcitonin negative. DC ceftriaxone and azithromycin. Encourage prone position. Vit C. Zinc. Increased lovenox dosage to full dose, 1mg/kg q12h. - Ferritin 2400. LDH 776. CRP 1.31 (trend down). Trop neg. D dimer rising. #Hyperkalemia: resolved s/p kayex, albuterol. hold lisinopril. BP appropriate. #HTN: c/w amlodipine. ACEi held due to labile bp #Asthma: singulair. Albuterol. #DVT: lovenox 1 mg/kg q12h Dispo: PT/OT once oxygenation improves. Poor prognosis as patient continues to require max vapotherm, oziel likely require bipap. I spoke to patient's brother Dr. Weaver (tel: [phone]), and updated him to progress. I answered all questions in detail. VS, I&O, 24H, Fishbone Vital Signs/I&O Vital Signs Date Time Temp Pulse Resp B/P (MAP) Pulse Ox O2 Delivery O2 Flow Rate FiO2 07/24/20 08:00 97.1 112 18 131/70 (90) 89 HVNI-Vapotherm 40.0 100 I&O- Last 24 Hours up to 6 AM 07/24/20 06:00 Intake Total 570 ml Output Total 550 ml Balance 20 ml Laboratory Data 24H LABS Laboratory Tests 2 07/24/20 08:08: Immature Granulocyte % (Auto) 0.5, Neutrophils (%) (Auto) 92.2H, Lymphocytes (%) (Auto) 4.5L, Monocytes (%) (Auto) 2.6, Eosinophils (%) (Auto) 0.0, Basophils (%) (Auto) 0.2, Neutrophils # (Auto) 7.9, Lymphocytes # (Auto) 0.4L, Monocytes # (Auto) 0.2, Eosinophils # (Auto) 0.0, Basophils # (Auto) 0.0, Nucleated Red Blood Cells % (auto) 0.0, Anion Gap 15, Glomerular Filtration Rate > 60.0, Calcium Level 8.3L, Magnesium Level 2.7H 07/24/20 08:23: Ferritin 2424H, Lactate Dehydrogenase 776H, Total Creatine Kinase 103, Troponin I < 0.02, C-Reactive Protein, Quantitative 1.31H 07/24/20 08:49: Prothrombin Time 16.0H, Prothromb Time International Ratio 1.25, Activated Partial Thromboplast Time 33.2, Fibrinogen 600H, D-Dimer, Quantitative 1012.43H CBC/BMP Laboratory Tests 07/24/20 08:08 Microbiology Microbiology 07/15/20 Blood Culture - Final, Complete NO GROWTH AFTER 5 DAYS LALY CUELLO MD Jul 24, 2020 12:16
[2020-07-24 12:57] VITALS: BP 119/65
[2020-07-24 15:50] VITALS: BP 152/75
[2020-07-24 20:00] VITALS: BP 129/61
[2020-07-24] MEDS: MONTELUKAST 10 MG TAB PO SCH (20:54)
[2020-07-24] MEDS: amLODIPine 5 MG TAB PO SCH (20:54)
[2020-07-24] MEDS: LATANOPROST 0.005% OPHTH SOLN 2.5 ML OU SCH (20:55)
[2020-07-25] VITALS (10 sets, daily range): BP systolic 103–164; BP diastolic 59–85
[2020-07-25] MEDS: guaiFENesin 200 MG TAB PO SCH ×6 (04:07→23:04)
[2020-07-25] MEDS: FLUTICASONE HFA 44 MCG 10.6GM INHALER (FLOVENT) INH SCH ×2 (06:18→20:16)
[2020-07-25 06:20] LABS: BASO % 0.3 % (0.0-1.0); HEMATOCRIT 61.8 % (42.0-52.0); LYMPH # 0.3 10^3/uL (1.5-5.0); LYMPH % 4.2 % (24.0-44.0); MEAN CORPUSCULAR HEMOGLOBIN 30.1 pg (27.0-33.0); MEAN CORPUSCULAR HGB CONC 30.7 g/dl (32.0-36.5); MEAN CORPUSCULAR VOLUME 97.8 fl (80.0-96.0); MONO # 0.2 10^3/uL (0.0-0.8); MONO % 2.7 % (0.0-5.0); NEUTROPHILS # 7.3 10^3/uL (1.5-8.5); NEUTROPHILS % 92.4 % (36.0-66.0); PLATELET COUNT, AUTOMATED 177 10^3/uL (150-450); RED BLOOD COUNT 6.32 10^6/uL (4.30-6.10); WHITE BLOOD COUNT 7.9 10^3/uL (4.0-10.0)
[2020-07-25] MEDS: ALBUTEROL 90 MCG/ACT 8GM HFA INHALER INH PRN ×2 (06:32→08:22)
[2020-07-25 06:39] LABS: BLOOD UREA NITROGEN 34 MG/DL (7-18); CALCIUM LEVEL 8.2 MG/DL (8.8-10.2); CARBON DIOXIDE LEVEL 22 MEQ/L (21-32); CHLORIDE LEVEL 107 MEQ/L (98-107); CREATININE FOR GFR 0.96 MG/DL (0.70-1.30); GLOMERULAR FILTRATION RATE > 60.0 (>42); GLUCOSE, FASTING 243 MG/DL (70-100); SODIUM LEVEL 141 MEQ/L (136-145)
[2020-07-25] MEDS: ASPIRIN 81 MG ENTERIC TAB PO SCH (07:39)
[2020-07-25] MEDS: ZINC SULFATE 220 MG CAP PO SCH (07:39)
[2020-07-25] MEDS: dexameTHASONE 20MG/5ML VIAL (J1100 PER 1MG) IV SCH ×2 (07:39→20:10)
[2020-07-25] MEDS: OMEPRAZOLE 20 MG CAP PO SCH (07:40)
[2020-07-25] MEDS: ENOXAPARIN 80MG/0.8ML SYRINGE (J1650 PER 10MG) SC SCH ×2 (07:40→20:07)
[2020-07-25] MEDS: ASCORBIC ACID 500 MG TAB PO SCH (07:40)
[2020-07-25] MEDS: COSOPT OCUMETER PLUS 10ML (DORZOLAMIDE/TIMOLOL) OU SCH (07:41)
[2020-07-25 11:12] LABS: ABG BASE EXCESS -1.8 (-2.0-2.0); ABG HCO3 19.8 MEQ/L (22.0-26.0); ABG O2 SATURATION 89.9 % (95.0-99.0); ABG PARTIAL PRESSURE CO2 27.3 mmHg (35.0-45.0); ABG PARTIAL PRESSURE O2 53.9 mmHg (75.0-100.0); ABG STANDARD HCO3 22.8 MEQ/L (22.0-26.0); ABG TOTAL CO2 20.7 MEQ/L (23.0-31.0); ABG pH (ARTERIAL) 7.479 UNITS (7.350-7.450)
[2020-07-25] MEDS: SODIUM CHLORIDE 0.9% INJ 10 ML SYR IV SCH (12:00)
--- NOTE | 2020-07-25 18:23 | IPNPDOC ---
Date Seen The patient was seen on 07/25/20. Progress Note SUBJECTIVE: Oh was seen and examined this morning by the hospitalist service while lying prone on hospital bed on maximum settings of Vapotherm high flow nasal cannula (40 L in, 100% FiO2). He is saturating at 94% on this maximum Vapotherm administration. Per review and discussion with nursing, patient had normal respiratory rates around mid part of the overnight shift and then sequentially has had increasing tachypnea. However, when he moves from a supine to prone position, his oxygenation improves as does his tachypnea - - oxygenation reaches around 98% and his respiratory rate comes down to roughly 18-20 breaths per minute. On speaking with Jordi, he reports being quite uncomfortable with the prone positioning. Despite this, and the maximum Vapotherm settings, patient feels as though he is not working harder to breathe and denies any pleuritic chest pain. He denies any fever or chills. OBJECTIVE PHYSICAL EXAMINATION: VITAL SIGNS: Please see below. GENERAL: Elderly gentleman lying prone on hospital bed wearing high flow nasal cannula Vapotherm. Appears in some mild discomfort due to body positioning. Alert and oriented 3. HEENT: Normocephalic, atraumatic. He is wearing Vapotherm high flow nasal cannula. Noninjected, anicteric sclera. CARDIOVASCULAR: As patient was prone at the time of our exam, unable to get an accurate assessment of heart sounds due to the fact auscultation on anterior surface of chest not possible. 2+ radial pulses bilaterally. RESPIRATORY: Wearing high flow nasal cannula Vapotherm with settings of 40 L and 100% FiO2. Observe respiratory rate in the room was approximately 18-20 breasts per minute. On posterior auscultation. Due to prone positioning, decreased breath sounds bilaterally, more so on the right side. There are some apprec iated. Moderate crackles in the bases. In the left side. ABDOMINAL: Direct anterior assessment deferred as patient was in prone positioning to improve oxygenation.. There was no guarding or tenderness over the lateral lower and upper quadrants. EXTREMITIES: Lower extremities are free of edema bilaterally. 2+ radial pulses bilaterally. NEUROLOGICAL: Awake, alert and oriented 3. No focal deficits appreciated. Nondistended dysarthric speech. PSYCHOLOGICAL: Somewhat depressed mood secondary in convenience of recurrent need for prone positioning. Affect appears appropriate. LABORATORY DATA, IMAGING STUDIES, MICROBIOLOGY: Please see below. ASSESSMENT AND PLAN: This is a 74 yo male with notable h/o chronic asthma and remote pancreatic ca, who presented with acute hypoxic respiratory failure secondary to [place] 19 infection. Initially, patient required 4.5 L of nasal cannula to maintain his oxygen saturations around 93%. In addition, initial evaluation did not suggest there was a superimposed bacterial infection via chest x-ray, and pro- calcitonin. Unfortunate, patient suffered a decompensation requiring supplementation and via high flow oxygen in the form of Vapotherm. He is currently on maximum settings and this probably is much as possible. #Acute hypoxic respiratory failure secondary to Covid19 infection -Continues on maximum settings of Vapotherm (40 L and 100% FiO2). Respiratory rate runs upper 20s and low 30s when he is awake, and mid to low 20s when he is asleep. -Proning approximately 4 times a day for roughly 30 minutes at a time, which he does not like. He will lie on his left side as well. Saturations approximately 99% when laying prone and low to mid 90s when he is on his left side. The highest they get when he is lying supine is 88-89% -ABG today showed respiratory alkalosis (pH 7.47, PCO2 27, PaO2 53.9, HCO3 19). This was done while patient was supine. With reports of saturations increasing while prone to 98%, this correlates to a true pO2 when prone of approximately 60. -Due to this continuing tachypnea with maxed Vapotherm, we will continue to keep a close eye, as patient may require either BiPAP or ultimately intubation. The fact that he is continuing to get good saturations while prone and on the side is encouraging. -Continue with twice a day dosing of dexamethasone, Remdesivir, vitamin C, zinc, weight-based Lovenox -Continue with incentive spirometry, Acapella -2 day repeat Covid specific labs (ferritin, LDH, CRP, fibrinogen, d-dimer) will be performed tomorrow. #Hypertension -Continue with amlodipine. -His home SAMANTHA inhibitor was held in the setting of labile blood pressures #Asthma -Continue with home Singulair and albuterol inhaler #DVT prophylaxis: currently 1 mg/kg lovenox sc dosing Disposition: Prognosis is guarded at this point as patient continues to be tachypneic and requiring maximum settings on Vapotherm. Potentially will need BiPAP or ultimately in intubation. VS, I&O, 24H, Fishbone Vital Signs/I&O Vital Signs Date Time Temp Pulse Resp B/P (MAP) Pulse Ox O2 Delivery O2 Flow Rate FiO2 07/25/20 16:00 40.0 100 07/25/20 16:00 97.8 101 26 103/69 (80) 96 HVNI-Vapotherm I&O- Last 24 Hours up to 6 AM 07/25/20 06:00 Intake Total 1200 ml Output Total 0 ml Balance 1200 ml Laboratory Data 24H LABS Laboratory Tests 2 07/25/20 06:03: Immature Granulocyte % (Auto) 0.4, Neutrophils (%) (Auto) 92.4H, Lymphocytes (%) (Auto) 4.2L, Monocytes (%) (Auto) 2.7, Eosinophils (%) (Auto) 0.0, Basophils (%) (Auto) 0.3, Neutrophils # (Auto) 7.3, Lymphocytes # (Auto) 0.3L, Monocytes # (Auto) 0.2, Eosinophils # (Auto) 0.0, Basophils # (Auto) 0.0, Nucleated Red Blood Cells % (auto) 0.0, Anion Gap 12, Glomerular Filtration Rate > 60.0, Calcium Level 8.2L 07/25/20 11:06: Blood Gas Bicarbonate Standard 22.8, Arterial Blood pH 7.479H, Arterial Blood Partial Pressure CO2 27.3L, Arterial Blood Partial Pressure O2 53.9L, Arterial Blood Total CO2 20.7L, Arterial Blood HCO3 19.8L, Arterial Blood Base Excess - 1.8, Arterial Blood Oxygen Saturation 89.9L CBC/BMP Laboratory Tests 07/25/20 06:03 Microbiology Microbiology 07/15/20 Blood Culture - Final, Complete NO GROWTH AFTER 5 DAYS NANO KAUR D.O. Jul 25, 2020 18:23
[2020-07-25] MEDS: LATANOPROST 0.005% OPHTH SOLN 2.5 ML OU SCH (20:06)
[2020-07-25] MEDS: amLODIPine 5 MG TAB PO SCH (20:09)
[2020-07-25] MEDS: MONTELUKAST 10 MG TAB PO SCH (20:09)
[2020-07-25] MEDS: SIMVASTATIN 20 MG TAB PO SCH (20:09)
[2020-07-25] MEDS: RAMELTEON 8 MG TAB (ROZEREM) PO PRN (23:04)
[2020-07-26] VITALS (7 sets, daily range): BP systolic 113–147; BP diastolic 57–86
[2020-07-26] MEDS: BENZONATATE 100 MG CAP PO PRN (04:14)
[2020-07-26] MEDS: guaiFENesin 200 MG TAB PO SCH ×5 (04:49→20:02)
[2020-07-26] MEDS ORDERED: ALPRAZolam 0.5 MG TAB PO ONE (05:15)
[2020-07-26 05:20] LABS: HEMATOCRIT 54.5 % (42.0-52.0); HEMOGLOBIN 18.6 g/dl (13.5-17.5); MEAN CORPUSCULAR HEMOGLOBIN 31.1 pg (27.0-33.0); MEAN CORPUSCULAR HGB CONC 34.1 g/dl (32.0-36.5); PLATELET COUNT, AUTOMATED 184 10^3/uL (150-450); RED BLOOD COUNT 5.99 10^6/uL (4.30-6.10); WHITE BLOOD COUNT 11.2 10^3/uL (4.0-10.0)
[2020-07-26 05:33] LABS: D-DIMER QUANT 1063.99 ng/ml (<500)
[2020-07-26 06:08] LABS: BLOOD UREA NITROGEN 32 MG/DL (7-18); C REACTIVE PROTEIN QUANTITATIV 0.81 MG/DL (0.00-0.30); CALCIUM LEVEL 8.1 MG/DL (8.8-10.2); CARBON DIOXIDE LEVEL 19 MEQ/L (21-32); CHLORIDE LEVEL 106 MEQ/L (98-107); CREATININE FOR GFR 0.92 MG/DL (0.70-1.30); FERRITIN 3415 NG/ML (26-388); GLOMERULAR FILTRATION RATE > 60.0 (>42); GLUCOSE, FASTING 246 MG/DL (70-100); LDH LACTATE DEHYDROGENASE 827 U/L (87-241); MAGNESIUM LEVEL 2.6 MG/DL (1.8-2.4); PHOSPHORUS LEVEL 2.4 MG/DL (2.5-4.9); POTASSIUM SERUM 4.9 MEQ/L (3.5-5.1); SODIUM LEVEL 139 MEQ/L (136-145)
[2020-07-26] MEDS ORDERED: methylPREDNISolone 125MG 2ML VIAL IV PRN (07:01)
[2020-07-26] MEDS ORDERED: EPINEPHrine INJ 1 MG/ML 1ML AMP IM PRN (07:01)
[2020-07-26] MEDS ORDERED: ALBUTEROL SULFATE 2.5 MG/0.5 ML INH NEB SOLN INH PRN (07:01)
[2020-07-26] MEDS ORDERED: diphenhydrAMINE 50MG/ML VIAL (J1200) IV PRN (07:01)
[2020-07-26] MEDS: FLUTICASONE HFA 44 MCG 10.6GM INHALER (FLOVENT) INH SCH ×2 (07:49→15:58)
[2020-07-26] MEDS: ALBUTEROL 90 MCG/ACT 8GM HFA INHALER INH PRN ×2 (07:49→15:58)
[2020-07-26] MEDS: ZINC SULFATE 220 MG CAP PO SCH (08:07)
[2020-07-26] MEDS: OMEPRAZOLE 20 MG CAP PO SCH (08:07)
[2020-07-26] MEDS: dexameTHASONE 20MG/5ML VIAL (J1100 PER 1MG) IV SCH ×2 (08:07→20:03)
[2020-07-26] MEDS: ENOXAPARIN 80MG/0.8ML SYRINGE (J1650 PER 10MG) SC SCH ×2 (08:07→20:03)
[2020-07-26] MEDS: ASCORBIC ACID 500 MG TAB PO SCH (08:07)
[2020-07-26] MEDS: ASPIRIN 81 MG ENTERIC TAB PO SCH (08:07)
[2020-07-26] MEDS: COSOPT OCUMETER PLUS 10ML (DORZOLAMIDE/TIMOLOL) OU SCH (08:08)
[2020-07-26] MEDS: ALPRAZolam 0.25 MG TAB PO SCH ×2 (11:39→20:03)
--- NOTE | 2020-07-26 12:07 | IPNPDOC ---
Text Note Date of Service The patient was seen on 07/26/20. NOTE Pt was seen at bedside this am.. He continues to worsen from the respiratory standpoint and is on Vapotherm at 40 L, and FiO2 of 100, Though he looks comfortable and is lying on his back in ICU. Physical examination General: NAD, lying in bed, in very mild distress; satting 94% Vapotherm 40 L, FiO2 of 100 HEENT: PERRLA, EOMI, sclerae non jaundiced. Neck: supple, normal ROM, no JVD Respiratory: lungs mild expiratory wheezing and shallow breathing effort. CVS: Sinus rhythm, normal S1, S2, no murmurs Abdomen: non distended and non tender on palpation, + BS, no guarding Extremities: no edema, pulses 2+ lower extr Neuro: no focal neuro deficits, moving all 4 extremities, CN2-12 intact. Strength 4/5 in all 4 extremities. No nystagmus Psych: calm, cooperative, AAO x 3 Assessment and plan This is a 74 year old male with asthma and remote history of prostate cancer here with acute hypoxic respiratory failure secondary to COVID-19 respiratory infection who has been worsening because of Covid 19 interstitial pneumonia, and currently is requiring 100% FiO2 on 40 L Vapotherm. . He has been treated with steroids as well as completed 10 day course of remdesevir. Because of his worsening respiratory function and possible cytokine storm pathology, he will be given anti-IL-6 interleukin monoclonal antibodies today on 07/26/20 1. Acute hypoxic respiratory failure 2/2 COVID 19 respiratory infection. Continue dexamethasone, which has been increased to 6 twice a day now and the patient's remdesiver completed for total of 10 days.. His fibrinogen and d- dimer's have been persistently been elevated and because of his very high d- dimer and high probability of the embolism, he is continued to be on therapeutic dose of Lovenox. CTA is ordered but as the patient is desaturating. Currently, that has been on hold. Because of his worsening respiratory function and possible cytokine storm pathology, he will be given anti-IL-6 interleukin monoclonal antibodies today on 07/26/20 Continue pruning efforts. Continue vitamin C continue zinc. Continue supplemental oxygen to maintain the saturation about 92. If required, the patient will be put on BiPAP and he is agreeable. 2. Hypertension. Continue with amlodipine and lisinopril 3. Mild persistent asthma. We will reassess his medications on discharge. Currently he is on steroids and inhalers. DVT ppx: Yoana dose of Lovenox Incentive spirometry and out of bed to chair with physical therapy. Proning as tolerated Disposition: Unknown at this time VS,Fishbone, I+O VS, Fishbone, I+O Laboratory Tests 07/26/20 04:00 Vital Signs Date Time Temp Pulse Resp B/P (MAP) Pulse Ox O2 Delivery O2 Flow Rate FiO2 07/26/20 09:55 107 29 92 HVNI-Vapotherm 40.0 100 07/26/20 08:00 97.4 121/84 (96) I&O- Last 24 Hours up to 6 AM 07/26/20 06:00 Intake Total 1300 ml Output Total 1460 ml Balance -160 ml NEAL BARRY MD Jul 26, 2020 12:07
[2020-07-26] MEDS ORDERED: ACETAMINOPHEN TAB 650MG DOSE (2X325MG) PO ONE (12:15)
[2020-07-26] MEDS ORDERED: NS 1,000 ML IV SCH (12:15)
[2020-07-26] MEDS ORDERED: methylPREDNISolone 125MG 2ML VIAL IV ONE (12:15)
[2020-07-26] MEDS ORDERED: diphenhydrAMINE 50MG/ML VIAL (J1200) IV ONE ×2 (12:15→14:00)
[2020-07-26] MEDS ORDERED: NS IV ONE (14:00)
[2020-07-26] MEDS ORDERED: TOCILIZUMAB IV ONE (14:00)
[2020-07-26] MEDS: LATANOPROST 0.005% OPHTH SOLN 2.5 ML OU SCH (20:03)
[2020-07-26] MEDS: amLODIPine 5 MG TAB PO SCH (20:07)
[2020-07-26] MEDS ORDERED: K-PHOS NEUTRAL 250MG TABLET (SOD.PHOSPHATE/POT.PHOSPHATE) PO SCH (21:00)
[2020-07-26] MEDS: MONTELUKAST 10 MG TAB PO SCH (21:54)
[2020-07-27] VITALS (8 sets, daily range): BP systolic 109–143; BP diastolic 59–79; O2SAT 93
[2020-07-27] MEDS: guaiFENesin 200 MG TAB PO SCH ×6 (03:48→20:14)
[2020-07-27 05:15] LABS: HEMATOCRIT 57.1 % (42.0-52.0); HEMOGLOBIN 17.3 g/dl (13.5-17.5); MEAN CORPUSCULAR HEMOGLOBIN 29.9 pg (27.0-33.0); MEAN CORPUSCULAR HGB CONC 30.3 g/dl (32.0-36.5); MEAN CORPUSCULAR VOLUME 98.6 fl (80.0-96.0); PLATELET COUNT, AUTOMATED 137 10^3/uL (150-450); RED BLOOD COUNT 5.79 10^6/uL (4.30-6.10); WHITE BLOOD COUNT 8.6 10^3/uL (4.0-10.0)
[2020-07-27 05:43] LABS: BLOOD UREA NITROGEN 44 MG/DL (7-18); CALCIUM LEVEL 7.8 MG/DL (8.8-10.2); CARBON DIOXIDE LEVEL 16 MEQ/L (21-32); CHLORIDE LEVEL 107 MEQ/L (98-107); CREATININE FOR GFR 1.15 MG/DL (0.70-1.30); GLOMERULAR FILTRATION RATE > 60.0 (>42); GLUCOSE, FASTING 329 MG/DL (70-100); POTASSIUM SERUM 5.4 MEQ/L (3.5-5.1); SODIUM LEVEL 137 MEQ/L (136-145)
[2020-07-27 06:02] LABS: ABG BASE EXCESS -5.6 (-2.0-2.0); ABG HCO3 15.2 MEQ/L (22.0-26.0); ABG O2 SATURATION 93.8 % (95.0-99.0); ABG PARTIAL PRESSURE CO2 21.8 mmHg (35.0-45.0); ABG PARTIAL PRESSURE O2 64.5 mmHg (75.0-100.0); ABG STANDARD HCO3 19.9 MEQ/L (22.0-26.0); ABG TOTAL CO2 15.9 MEQ/L (23.0-31.0); ABG pH (ARTERIAL) 7.462 UNITS (7.350-7.450)
[2020-07-27] MEDS: FLUTICASONE HFA 44 MCG 10.6GM INHALER (FLOVENT) INH SCH ×2 (07:17→20:00)
[2020-07-27] MEDS: ASCORBIC ACID 500 MG TAB PO SCH (08:42)
[2020-07-27] MEDS: ZINC SULFATE 220 MG CAP PO SCH (08:42)
[2020-07-27] MEDS: dexameTHASONE 20MG/5ML VIAL (J1100 PER 1MG) IV SCH ×2 (08:42→20:14)
[2020-07-27] MEDS: ASPIRIN 81 MG ENTERIC TAB PO SCH (08:42)
[2020-07-27] MEDS: OMEPRAZOLE 20 MG CAP PO SCH (08:42)
[2020-07-27] MEDS: ALPRAZolam 0.25 MG TAB PO SCH ×2 (08:42→20:14)
[2020-07-27] MEDS: ENOXAPARIN 80MG/0.8ML SYRINGE (J1650 PER 10MG) SC SCH ×2 (08:43→20:13)
[2020-07-27] MEDS: COSOPT OCUMETER PLUS 10ML (DORZOLAMIDE/TIMOLOL) OU SCH (08:43)
[2020-07-27] MEDS ORDERED: CALCIUM GLUCONATE 1,000 MG in D5W MINI-BAG PLUS 100 ML IV ONE (10:45)
[2020-07-27] MEDS ORDERED: SOD POLYSTYRENE SULFONATE SUSP 15 GM/60 ML UD PO ONE (12:00)
--- NOTE | 2020-07-27 17:10 | IPNPDOC ---
Date Seen The patient was seen on 07/27/20. Progress Note SUBJECTIVE: Jordi was seen and examined this morning by the hospitalist service while sitting upright in bed. He was officially switched over to ICU status yesterday from PCU status due to the need for significant nursing supervision. He continues to be on the highest settings of Vapotherm (40 L, FiO2 100%). He is currently saturating at 93% and maintained saturations in the low 90s overnight. He also continues to be both tachypneic, with respiratory rates overnight between 2937, and tachycardic, with heart rates between [id number]. He is not eating much as taking multiple bites makes him more short of breath. Per nursing, he insists on standing to use bedside urinal and desaturates whenever he does so. He reports continued increased work of breathing with shortness of breath as well as a dry cough. He also does complain of some pain on palpation of the right antecubital area as well as intermittent nausea with no emesis. He denies any current or overnight fever, chills, chest pain, palpitations, or abdominal pain. OBJECTIVE PHYSICAL EXAMINATION: VITAL SIGNS: Please see below. GENERAL: Elderly man lying upright in bed. Appears more tired today than yesterday, yet remains alert and oriented 3. Wearing Vapotherm nasal cannula, saturating 93% on 40 L, FiO2 100% HEENT: Normocephalic, atraumatic, wearing Vapotherm nasal cannula. Noninjected, anicteric sclera. CARDIOVASCULAR: Tachycardic rate, regular rhythm. Normal S1, S2. No murmurs or rubs appreciated. RESPIRATORY: Shallow, moderately tachypneic breathing while wearing Vapotherm at maximum settings (40 L, FiO2 100%). Diminished breath sounds bilaterally with some moderate crackles on inspiration of the left base posteriorly. No significant visible accessory muscle use. Symmetric chest expansion. Speaking about 56 words before becoming short of breath. ABDOMINAL: Soft, nontender, nondistended. Areas of bruising over the lower abdomen as well as a 1. 52 centimeter diameter circumferential area resembling a blood blister. Hypoactive bowel sounds. No rigidity appreciated. EXTREMITIES: There is roughly 9 cm long area over the right antecubital fossa of bruising with associated moderate induration and pain on palpation. 2+ radial pulses bilaterally. Some signs of cyanosis. Bilateral fingers, right hand great er than left. Lateral lower extremities free of edema. NEUROLOGICAL: More tired today than yesterday, closing his eyes at times during the exam. Always responds though when spoken to and his name is used. He remains alert and oriented 3. No focal neurologic deficits appreciated. Non-dysarthric speech. PSYCHOLOGICAL: Calm and cooperative. Affect appears appropriate. LABORATORY DATA, IMAGING STUDIES, MICROBIOLOGY: Please see below. ASSESSMENT AND PLAN: Jordi is a 74-year-old male with notable history of asthma, prostate cancer status post prostatectomy, remote melanoma, and hypertension, who is been admitted for 10 days due to acute hypoxic respiratory failure secondary to Covid 19 respiratory infection. His status over the past week or so has been steadily worsening due to Covid interstitial pneumonia and he has been requiring maximum settings of Vapotherm (40 L, 100% FiO2). Since the evening of 07/22. He continues to be treated with steroids, is status post 10 days of remdesivir, and received a single treatment yesterday with a monoclonal anti-body against IL-6 for potential cytokine storm pathology in the setting of worsening respiratory function. #Acute hypoxic respiratory failure secondary to Covid 19 respiratory infection -Continue with dexamethasone dosing of 6 mg twice a day; he is s/p 10 days of remdesivir -Due to worsening of respiratory function, he was given anti-IL-6 monoclonal antibody yesterday to help with potential cytokine storm pathology. Studies have shown that IL-6 and mab treatment effects usually seen by 48 hours. -Both fibrinogen and d-dimer levels have been persistently elevated and specifically the d-dimer levels indicate a high chance of thromboembolism, therefore, we will continue with the therapeutic dose (70 mg twice a day) of Lovenox. We had ordered a CTA to potentially rule out pulmonary embolism, but due to patient's significant desaturations off of the Vapotherm, imaging is currently deferred. -We spoke to nursing again today as well as the patient, emphasizing importance of proning efforts. Patient has not been that comfortable with lying on his abdomen and we have added on a small dose of twice a day. Alprazolam. -Continue with our goal of saturation maintenance around 92% with supplemental oxygen. -At this point, BiPAP is potentially an option, but due to no significant accessory muscle use on exam today, as well as the fact patient may struggle whenever he comes off of BiPAP, this option is currently deferred. Patient is agreeable should BiPAP be needed. -Continue with both zinc and ascorbic acid supplementation -Continue with aspirin for antiplatelet coverage in the setting of Covid 19 and associated clotting risks -Patient is to continue with incentive spirometry and out of bed to chair with nursing and PT as/when tolerated. #Right upper extremity induration and bruising -9-10 cm long area of bruising over the right antecubital area with associated induration and pain to the touch raise high suspicion of venous thrombus in setting of Covid 19 infection -Due to the very high elevated d-dimer and known coagulopathic. Side effects of significant Covid 19 infection, patient is already on therapeutic Lovenox -A right upper extremity duplex ultrasound ordered to rule out DVT #Hyperkalemia -mild this morning at 5.4 -likely 2/2 one administered dose of KPhos neutral yesterday evening for low sPhos -Kayexalate was not administered as patient's oral intake has been decreased of late and risk of dropping potassium too much exists -Single dose of calcium gluconate ordered -Repeat serum potassium at 1 PM decreased to 5.1 #Hypertension -Pressures remained relatively well controlled over the past 24 hours -Continue with amlodipine qHS -Home lisinopril was held a few days ago due to labile blood pressures. As he remains normotensive on amlodipine alone, we'll continue this way for now #Mild persistent asthma -His home medications will be reassessed upon discharge -For time being continue with both Singulair and albuterol inhaler #History of cataracts -c/w home cosopt and xalatan medications #DVT prophylaxis: Therapeutic Lovenox dosing (70 mg twice a day) Code status: Full code Disposition: Unknown at this time as patient continues to require maximum Vapotherm settings. BiPAP is an option that is currently being deferred as patient may struggle when coming off BiPAP. Hospitalist service called to update patient's brother, Dr. Jeremy Weaver ([phone]) of patient's status this evening. VS, I&O, 24H, Fishbone Vital Signs/I&O Vital Signs Date Time Temp Pulse Resp B/P (MAP) Pulse Ox O2 Delivery O2 Flow Rate FiO2 07/27/20 15:00 124 27 92 HVNI-Vapotherm 40.0 80 07/27/20 12:00 96.0 124/79 (94) I&O- Last 24 Hours up to 6 AM 07/27/20 06:00 Intake Total 1060 ml Output Total 1100 ml Balance -40 ml Laboratory Data 24H LABS Laboratory Tests 2 07/27/20 04:36: Nucleated Red Blood Cells % (auto) 0.0, Anion Gap 14, Glomerular Filtration Rate > 60.0, Calcium Level 7.8L 07/27/20 05:54: Blood Gas Bicarbonate Standard 19.9L, Arterial Blood pH 7.462H, Arterial Blood Partial Pressure CO2 21.8L, Arterial Blood Partial Pressure O2 64.5L, Arterial Blood Total CO2 15.9L, Arterial Blood HCO3 15.2L, Arterial Blood Base Excess - 5.6L, Arterial Blood Oxygen Saturation 93.8L CBC/BMP Laboratory Tests 07/27/20 04:36 07/27/20 14:02 GME ATTESTATION GME ATTESTATION My faculty preceptor for this patient encounter was physically present during the encounter and was fully available. All aspects of the patient interview, examination, medical decision making process, and medical care plan development were reviewed and approved by the faculty preceptor. The faculty preceptor is aware and concurs with the plan as stated in the body of this note and will attest to such by his/her cosignature. ATTENDING NOTE I, Neal Barry MD, have independently examined this patient and performed my own physical exam, as well as reviewed the documentation and edited where necessary. I have discussed in detail with the resident / student the findings and plan of treatment as documented by the resident / student and edited their note. I agree with their findings and treatment plan and have edited their documentation. NANO KAUR D.O. Jul 27, 2020 17:10 NEAL BARRY MD Aug 04, 2020 15:10
--- NOTE | 2020-07-27 19:28 | REPVR ---
PROCEDURE INFORMATION: Exam: US Duplex Right Upper Extremity Veins, Limited Exam date and time: 07/27/2020 6:59 PM Age: 74 years old Clinical indication: Other: Bruising; Additional info: R/O rue dvt in PT w/induration and bruising of RT ac fossa TECHNIQUE: Imaging protocol: Real-time Duplex ultrasound of the Right Upper Extremity with 2-D palma scale, color Doppler flow and spectral waveform analysis with image documentation. Limited exam focused on the right upper extremity veins. COMPARISON: No relevant prior studies available. FINDINGS: Right deep veins: Axillary and brachial veins are patent throughout without thrombus. Normal Doppler waveforms. Normal compressibility and/or augmentation response. Visualized internal jugular and subclavian veins are patent. Right superficial veins: Visualized basilic vein branches are patent without thrombus. Cephalic vein is not visualized Soft tissues: No abnormal focal fluid collection. IMPRESSION: No evidence of deep vein thrombosis. Electronically signed by: Demetrius Medina On 07/27/2020 19:29:16 PM
[2020-07-27] MEDS: SIMVASTATIN 20 MG TAB PO SCH (20:14)
[2020-07-27] MEDS: MONTELUKAST 10 MG TAB PO SCH (20:14)
[2020-07-27] MEDS: amLODIPine 5 MG TAB PO SCH (20:14)
[2020-07-27] MEDS: RAMELTEON 8 MG TAB (ROZEREM) PO PRN (20:16)
[2020-07-27] MEDS: LATANOPROST 0.005% OPHTH SOLN 2.5 ML OU SCH (21:00)
[2020-07-28] VITALS (46 sets, daily range): BP systolic 50–140; BP diastolic 34–75
[2020-07-28] MEDS: guaiFENesin 200 MG TAB PO SCH ×3 (00:24→08:07)
[2020-07-28] MEDS ORDERED: LORazepam 0.5 MG TAB PO ONE (03:00)
[2020-07-28] MEDS: ALBUTEROL 90 MCG/ACT 8GM HFA INHALER INH PRN (03:59)
[2020-07-28 06:23] LABS: ABG BASE EXCESS -5.6 (-2.0-2.0); ABG HCO3 15.1 MEQ/L (22.0-26.0); ABG O2 SATURATION 90.8 % (95.0-99.0); ABG PARTIAL PRESSURE CO2 21.2 mmHg (35.0-45.0); ABG PARTIAL PRESSURE O2 58.3 mmHg (75.0-100.0); ABG STANDARD HCO3 19.8 MEQ/L (22.0-26.0); ABG TOTAL CO2 15.7 MEQ/L (23.0-31.0)
[2020-07-28] MEDS: FLUTICASONE HFA 44 MCG 10.6GM INHALER (FLOVENT) INH SCH ×2 (07:30→20:23)
[2020-07-28] MEDS: dexameTHASONE 20MG/5ML VIAL (J1100 PER 1MG) IV SCH (08:06)
[2020-07-28] MEDS: ASCORBIC ACID 500 MG TAB PO SCH (08:06)
[2020-07-28] MEDS: ASPIRIN 81 MG ENTERIC TAB PO SCH (08:06)
[2020-07-28] MEDS: ENOXAPARIN 80MG/0.8ML SYRINGE (J1650 PER 10MG) SC SCH ×2 (08:06→20:51)
[2020-07-28] MEDS: COSOPT OCUMETER PLUS 10ML (DORZOLAMIDE/TIMOLOL) OU SCH (08:07)
[2020-07-28] MEDS: ALPRAZolam 0.25 MG TAB PO SCH (08:07)
[2020-07-28] MEDS ORDERED: MIDAZOLAM INJ 2MG/2ML VIAL (J2250 PER 1MG) As Ordered ONE (10:42)
[2020-07-28] MEDS ORDERED: PROPOFOL 1,000 MG/100 ML VIAL As Ordered ONE (10:43)
[2020-07-28] MEDS ORDERED: ROCURONIUM BROMIDE 50 MG/5 ML VIAL As Ordered ONE (10:46)
[2020-07-28] MEDS ORDERED: SUCCINYLCHOLINE INJ 200 MG/10 ML VIAL (J0330) As Ordered ONE (10:47)
[2020-07-28] MEDS ORDERED: NOREPINEPHRINE 4 MG/4 ML AMP As Ordered ONE (10:59)
[2020-07-28] MEDS: propofoL 1,000 MG in IV 1 EA IV SCH ×4 (11:00→23:45)
[2020-07-28] MEDS: NOREPINEPHRINE BITARTRATE 8 MG in D5W 492 ML IV SCH ×2 (11:05→18:31)
[2020-07-28] MEDS ORDERED: PHENYLephrine 500MCG 5ML (100MCG/ML) SYRINGE As Ordered ONE (11:09)
--- NOTE | 2020-07-28 11:33 | REP ---
INDICATION: S/P Intubation COMPARISON: 07/21/2020, 07/15/2020 TECHNIQUE: Portable AP view of the chest FINDINGS: The endotracheal tube extends into the right mainstem bronchus and requires repositioning. The mediastinum and cardiac silhouette are stable and within normal limits for portable technique. The lung somers demonstrate diffuse bilateral increased opacities suggesting multifocal pneumonia. Correlation with COVID-19 status is recommended. No effusion. No pneumothorax. IMPRESSION: 1. Endotracheal tube extends into the right mainstem bronchus and requires repositioning. 2. Lower lobe multifocal infiltrates (left greater than right). <Electronically signed by Artem Esposito > 07/28/20 [id number]
[2020-07-28] MEDS ORDERED: MIDAZOLAM INJ 2MG/2ML VIAL (J2250 PER 1MG) IV ONE (11:45)
[2020-07-28] MEDS ORDERED: SODIUM CHLORIDE 0.9% 1000ML IV ONE (11:45)
--- NOTE | 2020-07-28 12:36 | RO ---
OPERATIVE NOTE DATE OF OPERATION: 07/28/2020 PROCEDURE: Central line insertion. INDICATIONS: Vascular access and hypotension. PRE-PROCEDURE DIAGNOSIS: Acute respiratory failure. POST-PROCEDURE DIAGNOSIS: Acute respiratory failure. ATTENDING PHYSICIAN: Wanda Aly MD CONSENT: The procedure was performed emergently and the permission was implied due to the emergent nature of the procedure. PROCEDURE SUMMARY: A central line insertion practice form was completed by independent observer starting with the first hand wash prior to starting sterile technique. A time-out was performed. Full sterile technique was maintained throughout the procedure, including surgical cap, mask with protective eyewear, sterile gown, and sterile gloves. The right femoral vein was identified using ultrasound. Anesthesia was achieved over the vein using 1% lidocaine. Using real real-time [id number] guidance, the introducer needle was inserted into the right femoral vein under direct ultrasound visualization. Venous blood was withdrawn. The syringe was removed and a guidewire was advanced into the introducer needle. The introducer needle was removed over the guidewire. A small incision was made at the skin surface with a scalpel and a dilator was exchanged over the guidewire. After appropriate dilation was obtained, the dilator was exchanged over the wire for a triple-lumen central venous catheter. The wire was removed and the catheter was sutured in place. A sterile chlorhexidine-impregnated dressing was placed over the catheter at the insertion site. The patient tolerated the procedure without any hemodynamic compromise. At the time of procedure completion, all ports were aspirated and flushed properly. Estimated blood loss is less than 3 mL. MTDD
--- NOTE | 2020-07-28 14:07 | CR ---
CONSULTATION DATE: 07/28/2020 CHIEF COMPLAINT: Acute hypoxemic respiratory failure. HISTORY OF PRESENT ILLNESS: Mr. Weaver is a 74-year-old male with a past medical history of hypertension, asthma, hyperlipidemia, who presented initially to [facility] on July 15 with complaints of worsening shortness of breath and fever. He had been diagnosed with COVID-19 at an urgent care center on July 12 and presented due to worsening shortness of breath. In the ED, the patient was hypoxic, initially requiring nasal cannula, oxygen supplementation. He was initially admitted to medical-surgical unit on isolation and treated with dexamethasone as well as remdesivir. The patient completed his ten day course of remdesivir, however, continued to have worsening requiring increasing amounts of oxygen supplementation as well as increased inflammatory markers. He was given a dose of tocilizumab on 07/26/20 and he was transferred to the ICU for further monitoring. He was also continued on Lovenox for anticoagulation. He was initially on weight-based and then increased to full-dose Lovenox given his worsening hypoxia. The patient continued to require high amounts of oxygen supplementation while on Vapotherm at 90-100% FiO2 and 40 liters a minute. He also continued to be tachypneic and tachycardic as well as feeling weakness and continued shortness of breath with difficulty breathing. The patient has been encouraged for awake pronation although he has difficulty tolerating and so has not been compliant with awake pronation and not compliant with using his incentive spirometer as well. This morning, the patient was reporting worsening work of breathing and he also appeared to be more confused. He had pulled off his Vapotherm cannula and had quickly desaturated into the 50s. He was placed back on the Vapotherm as well as with a 100% nonrebreather with improvement in his O2 sats. He continued to be tachypneic, however, and given his change in mental status, the decision was made for an emergent intubation. The patient had also lost IV access yesterday evening and so he required emergent placement of a central line catheter in the right femoral region. The patient was given 2 mg of versed for pre-sedation and he was oxygenated with bag mask ventilation and with the Vapotherm and his O2 sats improved to 99 to 100% while we were awaiting anesthesia for intubation. The patient was intubated by anesthesia with the use of Propofol and rocuronium for rapid sequence intubation. His blood pressures did drop although he was started on normal saline bolus and he did require p.r.n. phenylephrine and then was started on Levophed post-intubation. MEDICAL AND SURGICAL HISTORY: 1. Asthma. 2. Hypertension. 3. Hyperlipidemia. 4. Glaucoma. 5. History of prostate cancer ten years ago, status post prostatectomy. 6. Knee surgery. 7. Melanoma. FAMILY HISTORY: Hypertension. 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 He denies any alcohol use, no nicotine use. HOME MEDICATIONS: 1. Benzonatate. 2. Dorzolamide/Timolol eye drops. 3. Flovent. 4. Latanoprost. 5. Singulair. 6. Nabumetone. 7. Omeprazole. 8. Formoterol. 9. Simvastatin. 10. Prednisone. 11. Albuterol p.r.n. 12. Tramadol p.r.n. ALLERGIES: No known drug allergies. PHYSICAL EXAMINATION: Vitals: Temperature 97.7, pulse 114, respirations 32-40, blood pressure 119/60. O2 sat this morning was 94% on 40 liters a minute and 100% FiO2, inflow 1.5 liters, output 1.4 liters. General: The patient is sitting in bed, appears drowsy and lethargic although is responding to questions appropriate with short one word answers. He has evidence of respiratory distress and is tachypneic using some accessory muscle use with shallow breathing noted. HEENT: Normocephalic, atraumatic. Pupils are reactive to light bilaterally. Neck: Supple. Trachea is midline. No JVD noted. Cardiovascular: Tachycardic, regular rate and rhythm. Normal S-1, S-2. Unable to clearly appreciate any murmurs. Respiratory: Decreased breath sounds bilaterally with crackles noted in the left base posteriorly. No wheezing noted. Abdomen: Soft, nontender, nondistended. There are hypoactive bowel sounds. There is area of breathing in the lower abdomen. Extremities: No lower extremity edema bilaterally. There is mild cyanosis noted in the fingers. There is a large area of ecchymosis in the right antecubital fossa and extending down into the forearm with some swelling. LABORATORY DATA: No labs for today as patient was unable to have any blood drawn. ABG this morning: Ph 7.47, pCO2 of 21.2, PO2 of 58.3. IMAGING: Chest x-ray post-intubation shows opacities in the lower lobe, left more than right with some evidence of fibrotic changes. There is an endotracheal tube with the tip just in the right mainstem which was adjusted and with the repeat imaging showing appropriate tube position. There is some gaseous distention in the stomach which is improved after placement of the OG tube. ASSESSMENT AND PLAN: Mr. Weaver is a 74-year-old male with history of asthma, hypertension, prostate cancer, status post prostatectomy, who presented initially with acute hypoxemic respiratory failure secondary to COVID-19 pneumonia. The patient has required increasing amounts of oxygen supplementation during his admission. He was treated with dexamethasone which he is still on as well as completing a ten day course of remdesivir during his admission. He also received a dose of tocilizumab as well with his worsening hypoxia. This morning, the patient continued to require high amounts of oxygen supplementation with the Vapotherm. He was noted to have increased work of breathing as well as altered mental status and the decision was made then for endotracheal intubation. The patient pre-intubation was noted to have somewhat soft blood pressures and his internal jugular vein was completely collapsed. He was given an IV fluid bolus but did require p.r.n. phenylephrine during intubation for hypotension. He was also started on Levophed post-intubation as well as he may have some hypotension related to his sedation with the propofol. The patient did have a triple lumen central line placed in the right femoral vein for IV access and for vasopressor administration. Acute hypoxemic respiratory failure in the setting of COVID-19 pneumonia. Patient with worsening hypoxemic respiratory failure. His x-ray has shown worsening opacities in the lower lobe as well as some evidence of fibrosis. The patient has had difficulty with tolerating proning as well as noncompliance with incentive spirometer and in fact, has worsening hypoxia is in the setting of atelectasis as well as possible ARDS and fibrosis. The patient is now intubated. He is on mechanical ventilation with volume control settings of 10/25/70 and 10. We will continue to wean down his FiO2 and PEEP as tolerated to maintain O2 sat above 90%. We will continue to monitor his plateau pressures. He is currently maintaining less than 30 but he does have elevated plateau pressures consistent with ARDS. We will continue patient on propofol for sedation while intubated. Continue daily chest x-rays and ABGs while intubated. We will follow up with his ABG post-intubation and adjust his respiratory rate and tidal volume depending. Continue with vent bundle care with chlorhexidine mouthwash and head of bed elevation. The patient does not currently appear to require proning while on the ventilator but we will closely monitor his PAO2/FiO2 ratio. The patient has been afebrile. He does have worsening opacities on imaging but does not have any significant leukocytosis as of yesterday's labs. Would follow up repeat CBC as well as a procalcitonin and continue monitoring him off of antibiotics at this time. We will continue to monitor inflammatory markers. The patient was increased to full dose anticoagulation given his worsening hypoxia and elevated D-dimers. We will continue with Lovenox for anticoagulation. His right upper extremity ultrasound was negative for DVT but he does continue to have bruising and ecchymosis there as well as some swelling. Continue with aspirin. Continue with dexamethasone 6 mg IV daily. ERNA. The patient was noted to have decreasing urine output this morning and he does have evidence of mild hyperkalemia as well as mild ERNA noted on labs yesterday. The patient has been getting p.r.n. doses of Lasix during his admission and clinically, I suspect a component of dehydration. We will give patient another liter of bolus for a total of two liters normal saline bolus and then we will continue him with free water flushes via his OG tube as well as tube feeds while intubated and maintenance fluids Hx Hypertension, now with hypotension post intubation. DC antihypertensive medications. We will continue with Levophed and titrate to maintain a MAP above 65. The patient likely will need cont pressors while on sedation. will check cardiac enzymes DVT prophylaxis. On Lovenox AC. CODE STATUS: FULL CODE. Healthcare proxy is patient's brother, Dr. Jeremy Weaver. Total critical care time not including procedures approximately one hour and 55 minutes. MTDD
[2020-07-28 14:08] LABS: CALCIUM LEVEL 7.4 MG/DL (8.8-10.2); CREATININE FOR GFR 1.69 MG/DL (0.70-1.30); GLOMERULAR FILTRATION RATE 42.2 (>42)
[2020-07-28 14:09] LABS: HEMATOCRIT 46.7 % (42.0-52.0); HEMOGLOBIN 15.8 g/dl (13.5-17.5); MEAN CORPUSCULAR HEMOGLOBIN 31.2 pg (27.0-33.0); MEAN CORPUSCULAR HGB CONC 33.8 g/dl (32.0-36.5); MEAN CORPUSCULAR VOLUME 92.3 fl (80.0-96.0); PLATELET COUNT, AUTOMATED 141 10^3/uL (150-450); RED BLOOD COUNT 5.06 10^6/uL (4.30-6.10); WHITE BLOOD COUNT 19.3 10^3/uL (4.0-10.0)
[2020-07-28] MEDS: PANTOPRAZOLE 40MG VIAL (C9113 PER 1) IV SCH (14:12)
[2020-07-28 14:21] LABS: MB/CK RELATIVE INDEX 6.98 (< OR =4)
[2020-07-28] MEDS: NS 0.45% 1,000 ML IV SCH (14:40)
[2020-07-28] MEDS ORDERED: GLUCAGON INJ 1MG VIAL SC PRN (14:45)
[2020-07-28] MEDS ORDERED: GLUCOSE 4GM CHEW TABLET PO PRN (14:45)
[2020-07-28] MEDS ORDERED: DEXTROSE 50% 50 ML SYRINGE IV PRN (14:45)
[2020-07-28] MEDS ORDERED: PIPERACILLIN/TAZOBACTAM SOD 2.25 GM in D5W MINI-BAG PLUS 50 ML IV SCH (15:00)
[2020-07-28] MEDS ORDERED: SODIUM CHLORIDE 0.45% 1000 ML IV ONE (15:00)
[2020-07-28 15:17] LABS: ABG BASE EXCESS -13.4 (-2.0-2.0); ABG HCO3 12.7 MEQ/L (22.0-26.0); ABG O2 SATURATION 94.7 % (95.0-99.0); ABG STANDARD HCO3 14.3 MEQ/L (22.0-26.0); ABG TOTAL CO2 13.7 MEQ/L (23.0-31.0)
[2020-07-28 15:18] LABS: ABG pH (ARTERIAL) 7.231 UNITS (7.350-7.450)
--- NOTE | 2020-07-28 15:27 | IPNPDOC ---
Date Seen The patient was seen on 07/28/20. Progress Note SUBJECTIVE: The hospitalist service was message prior to morning rounds by Jordi's nursing team as he had become much more tachypneic - - with respiratory rates in the 40s - - and was also desaturating into the 50s. In addition, he was actively trying to remove the Vapotherm nasal cannula from his face. Upon the hospitalist team's arrival, the patient was being assessed and cared for by the detective sergeant service (Dr. Aly), who was preparing him for insertion of a central IV line. Due to his acutely worsening hypoxemic respiratory failure, it was deemed that endotracheal intubation was warranted. Prior to the developments this morning, patient had been able to tolerate a decrease in his FiO2 yesterday afternoon from the maximum of 100% on Vapotherm to both 85 and 90%, while his saturations remained above 90 consistently, ranging from 90-98%. He was maintained on the maximum O2 volume of 40 L of Vapotherm. Around 3 AM the night hospitalist service administered a one-time, low dose of lorazepam for reported anxiety, in addition to his scheduled alprazolam. He remained tachycardic throughout the evening, with heart rates ranging from 107-117. It did appear his pressures were a little bit softer later in the evening and early this morning. In comparison to previous days. A Christopher catheter was inserted yesterday around 4:45 PM as patient insists that he was unable to void using a bedside urinal while lying upright and therefore would try to stand. Whenever he stood, his tachypnea increased and he desaturated. Upon insertion of the catheter, approximately 500 cc of light yellow colored urine were evacuated. Morning ABG showed pH 7.47/PCO2 21.2/HCO3 15.1/PO2 58.3. The ordered. Morning blood draw for CBC and metabolic panel were not able to be obtained due to patient's decline in status. OBJECTIVE PHYSICAL EXAMINATION: VITAL SIGNS: Please see below. GENERAL: Elderly man lying upright in bed. Again, appears somewhat tired and lethargic. Similar to yesterday, but responding to questions appropriately with short responses. He is wearing Vapotherm supplemental oxygen and remains tachypneic with shallow breaths. HEENT: Normocephalic, atraumatic. Noninjected, anicteric sclera. CARDIOVASCULAR: Regular rhythm with tachycardic rate. Normal S1, S2. Due to background sounds of Vapotherm. Very difficult to appreciate for any discernible murmurs or rubs. RESPIRATORY: Wearing Vapotherm supplemental oxygen at maximum settings (40 L, 100% FiO2). Tachypneic with shallow breathing and diminished breath sounds bilaterally. Respiratory crackles over the posterior left base. ABDOMINAL: Soft, nontender, nondistended. No rigidity appreciated. Hypoactive bowel sounds. Again, bruising over lower quadrants bilaterally with palpable blood blister to the left of the umbilicus. EXTREMITIES: Bilateral lower extremities are free of edema. There remains roughly 9-10 cm area of ecchymosis over the right antecubital fossa with surrounding swelling in some induration. NEUROLOGICAL: Responding appropriately to questions with short answers, but again for the second straight day, appears lethargic. LABORATORY DATA, IMAGING STUDIES, MICROBIOLOGY: Laboratory data, imaging studies, and microbiology all reviewed. Please see below for specific findings/results. ASSESSMENT AND PLAN: Jordi is a 74-year-old male with notable history of asthma, prostate cancer status post prostatectomy, remote melanoma, and hypertension, who has been admitted for 10 days due to acute hypoxic respiratory failure secondary to Covid 19 infection. His status over the past week or so has been steadily worsening due to Covid interstitial pneumonia, and he has been requiring maximum settings of Vapotherm (40 L, 100% FiO2) since the evening of 07/22. He continues to be treated with steroids, is s/p 10 days of remdesivir, and received a single treatment on 07/26 with an anti-IL-6 monoclonal antibody for potential cytokine storm pathology in the setting of worsening respiratory function. The morning of 07/28/20, patient became even more tachypneic, with desaturations into the 50s and was actively trying to remove the Vapotherm supplemental oxygen from his face. Upon assessment with the detective sergeant service, a collaborative decision was made to intubate the patient, due to worsening acute hypoxemic respiratory failure. #Acute hypoxemic respiratory failure secondary to Covid 19 infection -As discussed above in HPI, patient had an acute worsening of his hypoxemic respiratory failure this morning, desaturating into the 50s, while becoming more tachypneic from where he denies over the past few days. He was actively trying to remove the Vapotherm supplemental oxygen from his face. Patient was assessed by both hospitalist service and the detective sergeant service, and a collaborative decision was made to intubate the patient. -Ventilator settings and management per detective sergeant service. -At this point, the detective sergeant service (Dr. Aly) will become the primary for Mr. Weaver' care, and the hospitalist service will be signing off. At such point that Mr. Weaver is extubated, the hospitalist service will resume partaking in his care. Code status: Full code. The patient was directly asked this morning prior to intubation, and again, he confirmed his full code status. Disposition: Guarded in the setting of recent intubation for acutely worsening hypoxemic respiratory failure secondary to Covid 19 infection. The hospitalist service spoke with the patient's brother (Dr. Jeremy Weaver) and [id number] (Dr. Weaver as well) at [phone], and made them aware of the developments in their brother's care. VS, I&O, 24H, Fishbone Vital Signs/I&O Vital Signs Date Time Temp Pulse Resp B/P (MAP) Pulse Ox O2 Delivery O2 Flow Rate FiO2 07/28/20 12:00 97.0 113 25 140/67 (91) 100 Ventilator 60.0 07/28/20 12:00 60 I&O- Last 24 Hours up to 6 AM 07/28/20 06:00 Intake Total 1690 ml Output Total 1115 ml Balance 575 ml Laboratory Data 24H LABS Laboratory Tests 2 07/28/20 06:00: Blood Gas Bicarbonate Standard 19.8L, Arterial Blood pH 7.470H, Arterial Blood Partial Pressure CO2 21.2L, Arterial Blood Partial Pressure O2 58.3L, Arterial Blood Total CO2 15.7L, Arterial Blood HCO3 15.1L, Arterial Blood Base Excess -5. 6L, Arterial Blood Oxygen Saturation 90.8L 07/28/20 12:10: Anion Gap 14, Glomerular Filtration Rate 42.2, Calcium Level 7.4L, Total Creatine Kinase 129, Creatine Kinase MB 9.0H, Creatine Kinase MB Relative Index 6.98H 07/28/20 12:12: Nucleated Red Blood Cells % (auto) 0.0 CBC/BMP Laboratory Tests 07/28/20 12:10 07/28/20 12:12 GME ATTESTATION GME ATTESTATION My faculty preceptor for this patient encounter was physically present during the encounter and was fully available. All aspects of the patient interview, examination, medical decision making process, and medical care plan development were reviewed and approved by the faculty preceptor. The faculty preceptor is aware and concurs with the plan as stated in the body of this note and will attest to such by his/her cosignature. ATTENDING NOTE I, Neal Palumbo MD, have independently examined this patient and performed my own physical exam, as well as reviewed the documentation and edited where necessary. I have discussed in detail with the resident / student the findings and plan of treatment as documented by the resident / student and edited their note. I agree with their findings and treatment plan and have edited their do cumentation. NANO KAUR D.O. Jul 28, 2020 15:27 NEAL PALUMBO MD Aug 04, 2020 15:11
[2020-07-28] MEDS: HumaLOG INSULIN (NovoLOG) PER UNIT SC SCH ×2 (15:28→17:26)
[2020-07-28 15:41] LABS: TROPONIN I 0.31 NG/ML (< 0.10)
[2020-07-28] MEDS: LATANOPROST 0.005% OPHTH SOLN 2.5 ML OU SCH (19:56)
[2020-07-28 20:06] LABS: ACETONE/KETONE 9.21 MG/DL (<2.81); CALCIUM LEVEL 7.3 MG/DL (8.8-10.2); CK-MB VALUE MASS 12.5 NG/ML (<3.6); CREATININE FOR GFR 2.52 MG/DL (0.70-1.30); GLOMERULAR FILTRATION RATE 26.6 (>42); MB/CK RELATIVE INDEX 8.5 (< OR =4); POTASSIUM SERUM 5.7 MEQ/L (3.5-5.1); TROPONIN I 0.47 NG/ML (< 0.10)
[2020-07-28 20:17] LABS: ABG BASE EXCESS -12.5 (-2.0-2.0); ABG HCO3 12.8 MEQ/L (22.0-26.0); ABG O2 SATURATION 95.6 % (95.0-99.0); ABG PARTIAL PRESSURE CO2 28.6 mmHg (35.0-45.0); ABG PARTIAL PRESSURE O2 83.5 mmHg (75.0-100.0); ABG TOTAL CO2 13.7 MEQ/L (23.0-31.0); ABG pH (ARTERIAL) 7.268 UNITS (7.350-7.450)
[2020-07-28] MEDS ORDERED: INSULIN IV RATE CHANGE DOCUMENTATION ML/HR XX SCH (20:30)
[2020-07-28] MEDS ORDERED: CALCIUM GLUCONATE 1,000 MG in NS 100 ML IV ONE (20:30)
[2020-07-28] MEDS: CHLORHEXIDINE GLUCONATE 0.12 % 15ML UDC (PERIDEX ORAL RINSE) SSP SCH (20:50)
[2020-07-28] MEDS: VASOPRESSIN INJ 20 UNITS in NS 499 ML IV SCH (20:51)
[2020-07-28] MEDS: INSULIN REGULAR IN 0.9 % NACL 100 UNIT in IV 1 EA IV SCH ×2 (20:53)
[2020-07-28] MEDS ORDERED: LEVEMIR (INSULIN DETEMIR) 1 UNITS/0.01ML SC SCH (21:00)
[2020-07-28] MEDS: MIDAZOLAM INJ 2MG/2ML VIAL (J2250 PER 1MG) IV PRN ×2 (22:59→23:20)
[2020-07-28] MEDS ORDERED: propofoL 1,000 MG in IV 1 EA IV SCH (23:00)
[2020-07-29] VITALS (57 sets, daily range): BP systolic 73–126; BP diastolic 40–61; O2SAT 96
[2020-07-29] MEDS ORDERED: propofoL 1,000 MG in IV 1 EA IV SCH ×2
[2020-07-29] MEDS: NS 0.45% 1,000 ML IV SCH (00:30)
[2020-07-29] MEDS: MIDAZOLAM INJ 2MG/2ML VIAL (J2250 PER 1MG) IV PRN ×5 (01:21→23:39)
[2020-07-29] MEDS: INSULIN REGULAR IN 0.9 % NACL 100 UNIT in IV 1 EA IV SCH ×6 (02:04→06:02)
[2020-07-29] MEDS ORDERED: PIPERACILLIN/TAZOBACTAM SOD 2.25 GM in D5W MINI-BAG PLUS 50 ML IV SCH (03:00)
[2020-07-29 04:12] LABS: BASO # 0.1 10^3/uL (0.0-0.2); BASO % 0.2 % (0.0-1.0); HEMATOCRIT 43.5 % (42.0-52.0); HEMOGLOBIN 14.6 g/dl (13.5-17.5); LYMPH # 0.4 10^3/uL (1.5-5.0); LYMPH % 1.3 % (24.0-44.0); MEAN CORPUSCULAR HEMOGLOBIN 30.4 pg (27.0-33.0); MEAN CORPUSCULAR HGB CONC 33.6 g/dl (32.0-36.5); MEAN CORPUSCULAR VOLUME 90.6 fl (80.0-96.0); MONO # 0.9 10^3/uL (0.0-0.8); NEUTROPHILS % 94.4 % (36.0-66.0); PLATELET COUNT, AUTOMATED 112 10^3/uL (150-450)
[2020-07-29 04:15] LABS: WHITE BLOOD COUNT 30.7 10^3/uL (4.0-10.0)
[2020-07-29 04:37] LABS: CALCIUM LEVEL 7.1 MG/DL (8.8-10.2); CREATININE FOR GFR 2.17 MG/DL (0.70-1.30); GLOMERULAR FILTRATION RATE 31.6 (>42); POTASSIUM SERUM 4.8 MEQ/L (3.5-5.1)
[2020-07-29] MEDS: VASOPRESSIN INJ 20 UNITS in NS 499 ML IV SCH ×3 (05:01→20:16)
[2020-07-29 05:49] LABS: ABG BASE EXCESS -7.8 (-2.0-2.0); ABG HCO3 17.5 MEQ/L (22.0-26.0); ABG O2 SATURATION 97.3 % (95.0-99.0); ABG PARTIAL PRESSURE CO2 35.7 mmHg (35.0-45.0); ABG PARTIAL PRESSURE O2 96.7 mmHg (75.0-100.0); ABG STANDARD HCO3 18.3 MEQ/L (22.0-26.0); ABG TOTAL CO2 18.6 MEQ/L (23.0-31.0); ABG pH (ARTERIAL) 7.309 UNITS (7.350-7.450)
[2020-07-29] MEDS: HumaLOG INSULIN (NovoLOG) PER UNIT SC SCH ×5 (06:00→23:40)
[2020-07-29] MEDS: ENOXAPARIN 80MG/0.8ML SYRINGE (J1650 PER 10MG) SC SCH ×2 (07:41→20:16)
[2020-07-29] MEDS: CHLORHEXIDINE GLUCONATE 0.12 % 15ML UDC (PERIDEX ORAL RINSE) SSP SCH ×2 (07:42→20:16)
[2020-07-29] MEDS: FLUTICASONE HFA 44 MCG 10.6GM INHALER (FLOVENT) INH SCH ×2 (07:50→19:53)
[2020-07-29] MEDS: COSOPT OCUMETER PLUS 10ML (DORZOLAMIDE/TIMOLOL) OU SCH (09:00)
[2020-07-29] MEDS ORDERED: dexameTHASONE 20MG/5ML VIAL (J1100 PER 1MG) IV SCH (09:00)
[2020-07-29] MEDS: LEVEMIR (INSULIN DETEMIR) 1 UNITS/0.01ML SC SCH ×2 (09:35→20:15)
[2020-07-29] MEDS ORDERED: fentaNYL 100 MCG/2 ML INJECTION (J3010) As Ordered ONE (10:04)
[2020-07-29] MEDS ORDERED: fentaNYL 100 MCG/2 ML INJECTION (J3010) IV ONE (10:30)
[2020-07-29] MEDS: PIPERACILLIN/TAZOBACTAM SOD 2.25 GM in D5W MINI-BAG PLUS 50 ML IV SCH ×2 (11:00→18:14)
[2020-07-29 11:48] LABS: TROPONIN I 0.37 NG/ML (< 0.10)
[2020-07-29] MEDS: ASPIRIN 81 MG CHEW TABLET PEG SCH (11:56)
[2020-07-29] MEDS: PANTOPRAZOLE 40MG VIAL (C9113 PER 1) IV SCH (12:21)
[2020-07-29] MEDS ORDERED: fentaNYL CITRATE 1,000 MCG in NS 80 ML IV SCH (13:00)
[2020-07-29] MEDS: fentaNYL 100 MCG/2 ML INJECTION (J3010) IV PRN (14:08)
[2020-07-29] MEDS: NOREPINEPHRINE BITARTRATE 8 MG in D5W 492 ML IV SCH (16:19)
[2020-07-29] MEDS: propofoL 1,000 MG in IV 1 EA IV SCH (20:15)
[2020-07-29] MEDS: SIMVASTATIN 20 MG TAB PO SCH (20:16)
[2020-07-29] MEDS: LATANOPROST 0.005% OPHTH SOLN 2.5 ML OU SCH (20:16)
[2020-07-30] VITALS (63 sets, daily range): BP systolic 74–136; BP diastolic 35–71; O2SAT 96–100
[2020-07-30] MEDS: PIPERACILLIN/TAZOBACTAM SOD 2.25 GM in D5W MINI-BAG PLUS 50 ML IV SCH ×3 (02:30→18:30)
[2020-07-30 04:25] LABS: BASO # 0.1 10^3/uL (0.0-0.2); BASO % 0.3 % (0.0-1.0); HEMATOCRIT 40.3 % (42.0-52.0); HEMOGLOBIN 13.3 g/dl (13.5-17.5); LYMPH # 0.4 10^3/uL (1.5-5.0); LYMPH % 1.5 % (24.0-44.0); MEAN CORPUSCULAR HEMOGLOBIN 30.2 pg (27.0-33.0); MEAN CORPUSCULAR VOLUME 91.6 fl (80.0-96.0); MONO # 1.2 10^3/uL (0.0-0.8); MONO % 5.2 % (0.0-5.0); NEUTROPHILS # 21.1 10^3/uL (1.5-8.5); NEUTROPHILS % 90.8 % (36.0-66.0); WHITE BLOOD COUNT 23.2 10^3/uL (4.0-10.0)
[2020-07-30 04:27] LABS: PLATELET COUNT, AUTOMATED 83 10^3/uL (150-450)
[2020-07-30] MEDS: ACETAMINOPHEN TAB 650MG DOSE (2X325MG) PO PRN ×2 (04:27→15:44)
[2020-07-30] MEDS: VASOPRESSIN INJ 20 UNITS in NS 499 ML IV SCH ×3 (04:34→21:50)
[2020-07-30 04:50] LABS: CALCIUM LEVEL 6.5 MG/DL (8.8-10.2); CREATININE FOR GFR 2.01 MG/DL (0.70-1.30); GLOMERULAR FILTRATION RATE 34.6 (>42); POTASSIUM SERUM 5.6 MEQ/L (3.5-5.1)
[2020-07-30] MEDS: NOREPINEPHRINE BITARTRATE 8 MG in D5W 492 ML IV SCH ×2 (05:20→13:44)
[2020-07-30] MEDS: propofoL 1,000 MG in IV 1 EA IV SCH ×2 (05:47→17:36)
[2020-07-30] MEDS: HumaLOG INSULIN (NovoLOG) PER UNIT SC SCH ×5 (05:48→21:57)
[2020-07-30] MEDS ORDERED: NOREPINEPHRINE 4 MG/4 ML AMP As Ordered ONE (05:56)
[2020-07-30 06:03] LABS: ABG BASE EXCESS -11.8 (-2.0-2.0); ABG HCO3 14.9 MEQ/L (22.0-26.0); ABG O2 SATURATION 93.4 % (95.0-99.0); ABG PARTIAL PRESSURE CO2 36.9 mmHg (35.0-45.0); ABG PARTIAL PRESSURE O2 71.5 mmHg (75.0-100.0); ABG STANDARD HCO3 15.2 MEQ/L (22.0-26.0); ABG TOTAL CO2 16.1 MEQ/L (23.0-31.0)
[2020-07-30 06:04] LABS: ABG pH (ARTERIAL) 7.225 UNITS (7.350-7.450)
[2020-07-30] MEDS ORDERED: NS 500 ML IV ONE (06:15)
[2020-07-30] MEDS ORDERED: CALCIUM GLUCONATE 1,000 MG in NS 100 ML IV ONE (06:15)
[2020-07-30] MEDS ORDERED: VANCOMYCIN HCL 1,000 MG, VIAL MATE ADAPTER 1 EACH in NS 250 ML IV ONE (07:00)
[2020-07-30] MEDS: LEVEMIR (INSULIN DETEMIR) 1 UNITS/0.01ML SC SCH ×2 (08:40→21:57)
[2020-07-30] MEDS: ASPIRIN 81 MG CHEW TABLET PEG SCH (08:40)
[2020-07-30] MEDS: CHLORHEXIDINE GLUCONATE 0.12 % 15ML UDC (PERIDEX ORAL RINSE) SSP SCH ×2 (09:00→21:50)
[2020-07-30] MEDS: COSOPT OCUMETER PLUS 10ML (DORZOLAMIDE/TIMOLOL) OU SCH (09:00)
[2020-07-30] MEDS: HYDROCORTISONE 100 MG/2 ML VIAL (J1720 PER 1) IV SCH ×2 (09:44→17:36)
[2020-07-30 09:47] LABS: INR 1.43; PROTHROMBIN TIME 17.8 SECONDS (12.5-14.3)
[2020-07-30 09:48] LABS: PARTIAL THROMBOPLASTIN TIME 42.3 SECONDS (24.2-38.5)
[2020-07-30] MEDS: PANTOPRAZOLE 40MG VIAL (C9113 PER 1) IV SCH (12:05)
[2020-07-30] MEDS: fentaNYL 100 MCG/2 ML INJECTION (J3010) IV PRN ×2 (13:43→18:24)
--- NOTE | 2020-07-30 16:36 | CCN ---
CRITICAL CARE NOTE DATE: 07/30/2019 SUBJECTIVE: The patient was seen and examined this morning during bedside rounds. Yesterday, the patient had an episode with desaturation, particularly when positioning with his left side up, requiring increased FiO2. He also had required increased Levophed for blood pressure support. Upon repositioning, his FiO2 was able to be weaned down further overnight to 75%. The patient's Levophed was also able to be weaned down overnight, down back to the 8 mcg/min that he was on previously. The patient, however, then had an episode of fever earlier in the morning, as well as hypotension and required increased Levophed up to 15 mcg/min. He was given Tylenol for his fever and his temperature did improve. The patient was also given a dose of calcium gluconate for worsening hyperkalemia. He was tolerating trickle tube feeds, although is recent OG tube output when checking for residual showed some rust colored output mixed in with his residual tube feeds. The patient this morning has been able to be weaned down further on his FiO2, as well as in his Levophed. The patient also received 500 mL normal saline bolus. His urine output did drop off briefly overnight, but has improved now. He is still sedated, but is responsive to painful stimuli. His sedation was decreased overnight with his episode of hypotension. OBJECTIVE: VITAL SIGNS: T-max 101.5, T current 98.4, pulse 91, respirations 29, blood pressure 102/49, and O2 sat is 100% on ventilator at 75% FiO2. INTAKE AND OUTPUT: In 3.1, out 1.1, net positive 2 liters. GENERAL: The patient is intubated and sedated. He is responsive to painful stimuli only, but is not opening eyes spontaneously or following commands. HEENT: Head is normocephalic, atraumatic. Pupils are small, but reactive to light bilaterally. NECK: Supple. Trachea is midline. The patient has an increasing area of ecchymosis on his right neck, as well as hematoma from central line placement attempt. This is a slightly larger area of ecchymosis compared to yesterday where he did not have appreciable hematoma. CARDIOVASCULAR: Regular rate and rhythm. Normal S1, S2. Unable to appreciate any murmurs clearly. PULMONARY: Diminished breaths particularly at the bases, although somewhat improved today. There are no significant rhonchi or wheezing noted. ABDOMEN: Soft, nontender, and nondistended. There are hypoactive bowel sounds present. EXTREMITIES: There is increased +2 pitting lower extremity edema bilaterally. There is edema in the upper extremities with the right arm more than the left. The edema in the left arm in particular appears improved today. In the right arm, there is an area of ecchymosis, which initially was in the right antecubital fossa and is now extending further down his forearm and also extending up his underarm towards his axilla, which is increased from yesterday. There are pulses palpated with Doppler in the extremities. LABORATORY DATA: WBC 23.2, hemoglobin 13.3, platelets 83,000. Chemistries: Sodium is 130, potassium 5.6, chloride 103, bicarb 19, BUN 70, creatinine 2.01, glucose 377, calcium is 6.5. Troponin 0.74. ABG with pH 7.225, pCO2 of 36.9, pO2 of 71.5. INR is 1.43. PT 17.8, PTT 42.3, and fibrinogen 197. ASSESSMENT AND PLAN: Mr. Weaver is a 74-year-old male with a past medical history of asthma, hypertension, and prostate cancer who presented with acute hypoxemia respiratory failure secondary to COVID-19 pneumonia. The patient had been treated with a 10-day course of remdesivir, as well as with dexamethasone for his COVID-19 pneumonia. He also was given a dose of tocilizumab earlier due to his worsening hypoxemic respiratory failure. The patient continued to decompensate, however, and had worsening work of breathing, as well as altered mental status and required intubation and placement on mechanical ventilation. Neurologic: The patient had encephalopathy in the setting of his hypoxia. He is now intubated and on sedation. - Continue with propofol for sedation with Versed p.r.n. for agitation. Will also continue with Fentanyl p.r.n. for pain control and for tachypnea. - Will attempt to perform a sedation vacation tomorrow as the patient's FiO2 requirements are decreasing, and he initially required deep sedation due to his severe hypoxia. Cardiac: The patient does not have a significant cardiac history. He has a history of hypertension, but no known history of coronary artery disease. The patient initially was hypotensive in the setting of volume depletion and dehydration. He was given IV fluid repletion, but required vasopressor administration for shock likely in the setting of sepsis. He also had evidence of a positive troponin likely in the setting of demand ischemia. - The patient did require less Levophed yesterday; however, had an episode overnight where he required increased amounts of Levophed again. He has been weaned down, however, again on his Levophed and he is continued on vasopressin to maintain a MAP above 65. - The patient did have lactic acidosis initially in the setting of his shock, which did improve. - The patient's troponins initially did improve; however, with his episode this morning, he did have slight increase in troponin. He does not appear to have any significant EKG changes. - The patient's echocardiogram was performed yesterday. The preliminary results show a normal ejection fraction (EF). The final results are still pending. - The patient was continued on aspirin, as well as a statin. With his worsening thrombocytopenia and coagulopathy, however, will hold his aspirin for now. - Will continue to hold off on maintenance IV fluids, but can continue with IV fluid boluses as needed. Pulmonary: Patient with acute hypoxic respiratory failure in the setting of COVID-19 pneumonia. Patient with worsening opacities on imaging, as well as hypoxia possibly in the setting of acute respiratory distress syndrome (ARDS) with some evidence of fibrotic changes on x-ray, as well as possible superimposed bacterial pneumonia. - The patient was started on antibiotics initially with Zosyn, which was renally dosed. With his fever yesterday, he was given a dose of vancomycin, which we will continue for broad-spectrum coverage. - The patient's leukocytosis is improving, will monitor procalcitonin to aid in de-escalation of antibiotics - The patient is on mechanical ventilation with volume control with settings of 430/25/60 and 10. His FiO2 requirements have been decreasing today, so we will continue to wean down his FiO2 as tolerated. Once the patient is down to 55% FiO2, we will attempt to slowly wean his positive end-expiratory pressure (PEEP) as well. - The patient's arterial blood gas (ABG) this morning did show worsening of his combined respiratory and metabolic acidosis. He is currently overbreathing on the ventilator and we are attempting to limit his tidal volume based on the ARDS protocol, as well as maintaining his plateau pressures less than 30 still. - Will allow for some permissive hypercapnea and mild acidosis. - Daily chest x-rays were discontinued due to risk for exposure. Will perform chest x-rays as needed and continue with daily ABGs. Renal: Patient with acute renal failure initially likely in the setting of volume depletion and then possible component of acute tubular necrosis (ATN) with his hypotension. His urine output had decreased, but yesterday he was noted to have improvement in his renal function, as well as in his urine output. The patient also had hyperkalemia, which did improve; but this morning, he did have worsening hyperkalemia. Patient does not have a previous history of diabetes; however, he has been hyperglycemic during his hospitalization and requiring insulin. He was on insulin drip yesterday, which was discontinued once he had improvement in his fingerstick glucoses. Patient has been more hyperglycemic overnight and his fingerstick glucose and sliding scale coverage was changed to be every six hours and he is continued with long-acting insulin as well. - Patient was also started on stress dose steroids for his shock with hydrocortisone 50 mg every eight hours. He was previously on dexamethasone, which he has been on since his admission for his COVID-19 pneumonia and there is the possibility of some adrenal insufficiency with his worsening sepsis and shock. - Will continue to monitor urine output, renal function, electrolytes, and adjust accordingly. Hematologic: Patient has been on full dose anticoagulation with concern of possible venous thromboembolism (VTE) with his COVID-19 pneumonia and increasing D-dimer initially. He was noted this morning to have an increased area of ecchymosis, as well as worsening thrombocytopenia and decreased fibrinogen. There is concern that the patient may have a mild component of disseminated intravascular coagulation (DIC) in the setting of his acute sepsis. Patient did have a drop in his hemoglobin; however, his previous hemoglobin three days of 18 and 19 is likely hemoconcentrated in the setting of his volume depletion and his initial hemoglobin on admission was more in the range of 14 to 15. - Patient's thrombocytopenia is mild. Will continue with anticoagulation, but will decrease his Lovenox to 15 mg b.i.d. and continue to monitor for evidence of worsening bleeding. Gastrointestinal: Patient was receiving tube feeds with trickle rate with Glucerna, which he was tolerating. He did have some rust colored output when checking for residual and with his coagulopathy, thrombocytopenia, and mild DIC, would hold off on further tube feeds at this point. - Continue with proton pump inhibitor (PPI). Deep vein thrombosis (DVT) prophylaxis on Lovenox. Code status: FULL CODE. Health care proxy is patient's brother, Dr. Weaver. CRITICAL CARE TIME: Total time spent not including procedures approximately 55 minutes. MTDD
[2020-07-30 17:08] LABS: HEMATOCRIT 36.2 % (42.0-52.0); HEMOGLOBIN 12.3 g/dl (13.5-17.5); MEAN CORPUSCULAR VOLUME 91.2 fl (80.0-96.0); RED BLOOD COUNT 3.97 10^6/uL (4.30-6.10); WHITE BLOOD COUNT 25.1 10^3/uL (4.0-10.0)
[2020-07-30 17:13] LABS: PLATELET COUNT, AUTOMATED 66 10^3/uL (150-450)
[2020-07-30 17:24] LABS: CREATININE FOR GFR 1.82 MG/DL (0.70-1.30); GLOMERULAR FILTRATION RATE 38.8 (>42); POTASSIUM SERUM 5.2 MEQ/L (3.5-5.1)
[2020-07-30] MEDS ORDERED: HumaLOG INSULIN (NovoLOG) PER UNIT SC ONE (18:15)
[2020-07-30] MEDS: LATANOPROST 0.005% OPHTH SOLN 2.5 ML OU SCH (21:56)
[2020-07-31] VITALS (36 sets, daily range): BP systolic 78–131; BP diastolic 45–85
[2020-07-31] MEDS: PIPERACILLIN/TAZOBACTAM SOD 2.25 GM in D5W MINI-BAG PLUS 50 ML IV SCH ×3 (02:36→19:15)
[2020-07-31] MEDS: HYDROCORTISONE 100 MG/2 ML VIAL (J1720 PER 1) IV SCH ×3 (02:37→17:55)
[2020-07-31] MEDS: HumaLOG INSULIN (NovoLOG) PER UNIT SC SCH ×6 (02:37→22:30)
[2020-07-31] MEDS: ACETAMINOPHEN 325 MG/10.15 ML UDC GT PRN ×2 (03:40→09:43)
[2020-07-31 05:11] LABS: ABG BASE EXCESS -8.7 (-2.0-2.0); ABG HCO3 16.2 MEQ/L (22.0-26.0); ABG O2 SATURATION 94.9 % (95.0-99.0); ABG PARTIAL PRESSURE CO2 31.9 mmHg (35.0-45.0); ABG PARTIAL PRESSURE O2 74.5 mmHg (75.0-100.0); ABG STANDARD HCO3 17.4 MEQ/L (22.0-26.0); ABG TOTAL CO2 17.2 MEQ/L (23.0-31.0); ABG pH (ARTERIAL) 7.324 UNITS (7.350-7.450)
[2020-07-31] MEDS: propofoL 1,000 MG in IV 1 EA IV SCH ×2 (05:36→19:20)
[2020-07-31] MEDS: VASOPRESSIN INJ 20 UNITS in NS 499 ML IV SCH ×3 (05:36→22:33)
[2020-07-31 07:10] LABS: ALBUMIN 1.9 GM/DL (3.2-5.2); BILIRUBIN,TOTAL 1.4 MG/DL (0.2-1.0); CALCIUM LEVEL 6.8 MG/DL (8.8-10.2); CREATININE FOR GFR 1.83 MG/DL (0.70-1.30); D-DIMER QUANT 2847.14 ng/ml (<500); GLOMERULAR FILTRATION RATE 38.5 (>42); HEMATOCRIT 34.2 % (42.0-52.0); HEMOGLOBIN 11.4 g/dl (13.5-17.5); INR 1.26; MEAN CORPUSCULAR HGB CONC 33.3 g/dl (32.0-36.5); MEAN CORPUSCULAR VOLUME 92.9 fl (80.0-96.0); PARTIAL THROMBOPLASTIN TIME 34.4 SECONDS (24.2-38.5); POTASSIUM SERUM 5.2 MEQ/L (3.5-5.1); PROTHROMBIN TIME 16.1 SECONDS (12.5-14.3); RED BLOOD COUNT 3.68 10^6/uL (4.30-6.10); TOTAL PROTEIN 4.2 GM/DL (6.4-8.2); WHITE BLOOD COUNT 27.3 10^3/uL (4.0-10.0)
[2020-07-31 07:11] LABS: PLATELET COUNT, AUTOMATED 50 10^3/uL (150-450)
--- NOTE | 2020-07-31 07:38 | ECHO ---
DATE OF PROCEDURE: 07/29/2020 Age: 74 Gender: Male REFERRING PHYSICIAN: Wanda Aly MD. PATIENT LOCATION: ICU bed 8. REASON FOR STUDY: Sepsis. 2D MEASUREMENTS: Aortic root 3.5 cm IVC 1.2 cm DOPPLER MEASUREMENT Peak velocity across the aortic valve 1.7 msec Peak velocity across the LVOT 1.3 msec Mitral E 0.47 Mitral A 0.73 with a ratio of 0.64 2D COMMENTS: 1. Technically limited study due to poor acoustic window. Only subcostal views were made. 2. The left ventricular size appeared to be normal, as well as left ventricular wall thickness and systolic function. The estimated left ventricle systolic ejection fraction is 60% to 65%. 3. The left atrium appeared to be normal in size. The right atrium and the right ventricle also appeared to be normal in size. 4. The atrial septum in limited views appeared to be normal. 5. The aortic root is normal in size. 6. Only trace pericardial effusion noted posteriorly. 7. Mildly calcified aortic valve with normal leaflet excursion. Mildly calcified mitral annulus with normal anterior mitral valve leaflet motion. The tricuspid valve appeared to be normal. The pulmonic valve and proximal pulmonary artery branches were not well visualized. 8. The inferior vena cava in limited views appeared to be normal in size. Doppler with no significant valvular abnormalities detected. Abnormal relaxation pattern was noted across the mitral valve leaflets consistent with some features of grade 1 left ventricular diastolic dysfunction. IMPRESSION: 1. Technically limited study due to poor acoustic window. 2. Normal global left ventricular systolic function. There are some features of left ventricular diastolic dysfunction manifested by abnormal relaxation, grade 1. 3. No significant valvular abnormalities. 4. A trace pericardial effusion was noted, no evidence of cardiac tamponade. [facility]
[2020-07-31] MEDS ORDERED: SOD POLYSTYRENE SULFONATE SUSP 15 GM/60 ML UD PO ONE (08:15)
[2020-07-31] MEDS: ENOXAPARIN 60MG/0.6ML SYRINGE (J1650 PER 10MG) SC SCH ×2 (09:00→22:28)
[2020-07-31] MEDS: VANCOMYCIN HCL 1,000 MG, VIAL MATE ADAPTER 1 EACH in D5W 250 ML IV SCH (09:41)
[2020-07-31] MEDS: LEVEMIR (INSULIN DETEMIR) 1 UNITS/0.01ML SC SCH ×2 (09:41→22:31)
[2020-07-31] MEDS: CHLORHEXIDINE GLUCONATE 0.12 % 15ML UDC (PERIDEX ORAL RINSE) SSP SCH ×2 (09:41→22:28)
[2020-07-31] MEDS: ASPIRIN 81 MG CHEW TABLET PEG SCH (09:41)
[2020-07-31] MEDS: PANTOPRAZOLE 40MG VIAL (C9113 PER 1) IV SCH ×2 (09:42→22:29)
[2020-07-31] MEDS: COSOPT OCUMETER PLUS 10ML (DORZOLAMIDE/TIMOLOL) OU SCH (09:44)
[2020-07-31 11:59] LABS: VANCOMYCIN RANDOM 6.8 UG/ML
[2020-07-31] MEDS ORDERED: VANCOMYCIN HCL 500 MG in D5W MINI-BAG PLUS 100 ML IV ONE (13:00)
[2020-07-31] MEDS: NOREPINEPHRINE BITARTRATE 8 MG in D5W 492 ML IV SCH ×2 (13:13→13:14)
[2020-07-31 16:55] LABS: CLOSTRIDIUM DIFFICILE PCR POSITIVE (NEGATIVE)
[2020-07-31] MEDS ORDERED: NS 500 ML IV ONE (17:15)
[2020-07-31 18:55] LABS: HEMATOCRIT 29.3 % (42.0-52.0); HEMOGLOBIN 9.8 g/dl (13.5-17.5); MEAN CORPUSCULAR HEMOGLOBIN 30.8 pg (27.0-33.0); MEAN CORPUSCULAR HGB CONC 33.4 g/dl (32.0-36.5); MEAN CORPUSCULAR VOLUME 92.1 fl (80.0-96.0); PLATELET COUNT, AUTOMATED 118 10^3/uL (150-450); RED BLOOD COUNT 3.18 10^6/uL (4.30-6.10); WHITE BLOOD COUNT 28.3 10^3/uL (4.0-10.0)
[2020-07-31] MEDS: VANCOMYCIN ORAL SOL 250MG/5ML ORAL SYRINGE PO SCH (19:15)
[2020-07-31 19:21] LABS: ANISOCYTOSIS 1+; CALCIUM LEVEL 6.6 MG/DL (8.8-10.2); CREATININE FOR GFR 1.65 MG/DL (0.70-1.30); GLOMERULAR FILTRATION RATE 43.4 (>42); LYMPHOCYTES 5 % (16-44); MONOCYTES 5 % (0-5); NEUTROPHILS 72 % (28-66); POTASSIUM SERUM 4.5 MEQ/L (3.5-5.1)
[2020-07-31 19:22] LABS: PLATELET ESTIMATE DECREASED (NORMAL); POLYCHROMASIA 1+
[2020-07-31] MEDS: LATANOPROST 0.005% OPHTH SOLN 2.5 ML OU SCH (22:27)
[2020-07-31] MEDS: SIMVASTATIN 20 MG TAB PO SCH (22:32)
[2020-08-01] VITALS (60 sets, daily range): BP systolic 70–167; BP diastolic 35–79
[2020-08-01] MEDS: VANCOMYCIN ORAL SOL 250MG/5ML ORAL SYRINGE PO SCH ×4 (00:53→18:29)
[2020-08-01] MEDS: HumaLOG INSULIN (NovoLOG) PER UNIT SC SCH ×6 (01:19→21:38)
[2020-08-01] MEDS: HYDROCORTISONE 100 MG/2 ML VIAL (J1720 PER 1) IV SCH ×3 (01:19→18:30)
[2020-08-01] MEDS: MIDAZOLAM INJ 2MG/2ML VIAL (J2250 PER 1MG) IV PRN ×6 (02:45→22:42)
[2020-08-01] MEDS: PIPERACILLIN/TAZOBACTAM SOD 2.25 GM in D5W MINI-BAG PLUS 50 ML IV SCH ×3 (02:45→18:29)
[2020-08-01] MEDS: NOREPINEPHRINE BITARTRATE 8 MG in D5W 492 ML IV SCH ×3 (03:36→20:16)
[2020-08-01] MEDS: fentaNYL 100 MCG/2 ML INJECTION (J3010) IV PRN ×4 (03:58→22:43)
[2020-08-01 04:16] LABS: BASO % 0.1 % (0.0-1.0); HEMATOCRIT 26.8 % (42.0-52.0); LYMPH # 1.9 10^3/uL (1.5-5.0); LYMPH % 6.4 % (24.0-44.0); MEAN CORPUSCULAR HEMOGLOBIN 30.9 pg (27.0-33.0); MEAN CORPUSCULAR HGB CONC 33.6 g/dl (32.0-36.5); MEAN CORPUSCULAR VOLUME 92.1 fl (80.0-96.0); MONO # 1.1 10^3/uL (0.0-0.8); MONO % 3.6 % (0.0-5.0); NEUTROPHILS # 24.7 10^3/uL (1.5-8.5); NEUTROPHILS % 83.2 % (36.0-66.0); RED BLOOD COUNT 2.91 10^6/uL (4.30-6.10); WHITE BLOOD COUNT 29.7 10^3/uL (4.0-10.0)
[2020-08-01 04:20] LABS: PLATELET COUNT, AUTOMATED 65 10^3/uL (150-450)
[2020-08-01 04:27] LABS: INR 1.2; PROTHROMBIN TIME 15.5 SECONDS (12.5-14.3)
[2020-08-01 04:36] LABS: CALCIUM LEVEL 6.2 MG/DL (8.8-10.2); CREATININE FOR GFR 1.34 MG/DL (0.70-1.30); GLOMERULAR FILTRATION RATE 55.2 (>42); POTASSIUM SERUM 4.4 MEQ/L (3.5-5.1)
[2020-08-01 04:37] LABS: ABG BASE EXCESS -7.9 (-2.0-2.0); ABG O2 SATURATION 91.5 % (95.0-99.0); ABG PARTIAL PRESSURE CO2 32.4 mmHg (35.0-45.0); ABG PARTIAL PRESSURE O2 66.3 mmHg (75.0-100.0); ABG pH (ARTERIAL) 7.338 UNITS (7.350-7.450)
[2020-08-01] MEDS: VASOPRESSIN INJ 20 UNITS in NS 499 ML IV SCH ×3 (05:03→21:50)
[2020-08-01] MEDS: propofoL 1,000 MG in IV 1 EA IV SCH (06:40)
[2020-08-01] MEDS: LEVEMIR (INSULIN DETEMIR) 1 UNITS/0.01ML SC SCH ×3 (09:00→21:33)
[2020-08-01] MEDS: ENOXAPARIN 60MG/0.6ML SYRINGE (J1650 PER 10MG) SC SCH ×2 (09:00→21:32)
[2020-08-01] MEDS: CHLORHEXIDINE GLUCONATE 0.12 % 15ML UDC (PERIDEX ORAL RINSE) SSP SCH ×2 (09:48→21:31)
[2020-08-01] MEDS: ASPIRIN 81 MG CHEW TABLET PEG SCH (09:49)
[2020-08-01] MEDS: PANTOPRAZOLE 40MG VIAL (C9113 PER 1) IV SCH ×2 (09:49→21:31)
[2020-08-01] MEDS: COSOPT OCUMETER PLUS 10ML (DORZOLAMIDE/TIMOLOL) OU SCH (09:54)
[2020-08-01] MEDS: VANCOMYCIN HCL 1,000 MG, VIAL MATE ADAPTER 1 EACH in D5W 250 ML IV SCH (10:10)
[2020-08-01] MEDS ORDERED: VANCOMYCIN HCL 500 MG in D5W MINI-BAG PLUS 100 ML IV ONE (11:00)
[2020-08-01] MEDS ORDERED: MIDAZOLAM HCL 100 MG in D5W 80 ML IV SCH (17:30)
[2020-08-01] MEDS ORDERED: REFRIGERATOR IV KEYS XX PRN (17:30)
--- NOTE | 2020-08-01 17:56 | CCN ---
CRITICAL CARE NOTE DATE: 08/01/2009 SUBJECTIVE: The patient was seen and examined this morning during bedside rounds. The patient had been doing well yesterday being weaned down from the Levophed. This morning the patient was on minimal amounts of Levophed at 2 mcg per minute. He is still on Vasopressin for blood pressure support. He had an issue early in the morning where he became tachypneic and was breath stacking on the ventilator. He was given Fentanyl 50 mcg in addition to Versed with improvement. The patient's temperature improved and he has been afebrile overnight now. With a brief sedation hold, the patient was withdrawing to pain and opening his eyes but did not appear to be following commands. OBJECTIVE: PHYSICAL EXAMINATION: VITAL SIGNS: Temperature 97.5, pulse 73, respirations 29, blood pressure 106/53, O2 sat 94% on the ventilator at 60% FiO2. INTAKE AND OUTPUT: In 3.3, out 865 mL, net positive 2.5 liters. GENERAL APPEARANCE: The patient is intubated and sedated. He is responsive to painful stimuli and was opening his eyes briefly earlier off of sedation. He does have issue with breath stacking however and tachypnea with last sedation. HEENT: Normocephalic and atraumatic. Pupils are reactive to light bilaterally. NECK: Supple. Trachea is midline. The patient has a large area of ecchymosis on the right neck. The area of hematoma however appears less. CARDIOVASCULAR: Regular rate and rhythm, normal S1, S2, unable to appreciate any murmurs. PULMONARY: Coarse ventilator breath sounds bilaterally with no significant wheezing or rhonchi. There are mild crackles at the bases. ABDOMEN: Soft, nontender, and nondistended. There are hypoactive bowel sounds present. EXTREMITIES: There is +1 pitting edema in the bilateral lower extremities. There is edema in the upper extremities, the left arm more than the right which is improving mildly. There is a large area of ecchymosis in the left arm in the dependent region which does not appear to have increased. LABORATORY STUDIES: WBC 29.7, hemoglobin 9.0, platelet count 65. Chemistries: Sodium is 138, potassium 4.4, chloride is 110, bicarbonate is 22, BUN 54, creatinine is 1.34, glucose is 101. INR is 1.20, fibrinogen 199. Arterial blood gases: PH 7.338, pco2 of 32.4, pO2 of 66.3. ASSESSMENT AND PLAN: Mr. Weaver is a 74-year-old male with a past medical history of asthma, hypertension, prostate cancer, who presented with acute hypoxic respiratory failure secondary to COVID-19 pneumonia. The patient had completed a 10-day course of Remdesivir as well as Dexamethasone for his COVID-19 pneumonia. He had also received a dose of Tocilizumab for his severe hypoxic respiratory failure. The patient continued to decompensate, however and had an episodes of altered mental status. He required intubation and mechanical ventilation. Neurologic - The patient is currently intubated and sedated. - We will continue Propofol for sedation with p.r.n. Versed for agitation and Fentanyl p.r.n. for pain control and tachypnea. His Fentanyl is increased from 25 mcgs to 50 mcgs q. one hour p.r.n. - We will continue to attempt sedation vacation as FiO2 requirements are decreasing. The patient does have issues however when weaning sedation with breath stacking and tachypnea. Cardiac - The patient demand ischemia as well as shock, some of which was in the setting of volume depletion but also likely septic shock. He has been requiring less vasopressors and is being weaned down on his Levophed. He is still on Vasopressin but we will continue to attempt to wean off of Levophed if tolerated and continue with Vasopressin to maintain a MAP above 65. - The patient's troponins did trend down his lactic acid had also improved. Given his demand ischemia and H&H which is trending down, he will be transfused one unit of PRBC. - We will continue statins, however his Aspirin is on hold due to his thrombocytopenia. Pulmonary acute hypoxic respiratory failure in the setting of COVID-19 pneumonia with possible superimposed bacteria pneumonia and ARDS. - The patient is on broad spectrum antibiotics with Zosyn and Vancomycin. He initially had improvement with his leukocytosis, however as he had fever yesterday and increase of leukocytosis, there was concern for possible other source of infection. The patient did have a large soft bowel movement which we sent C-difficile PCR which was positive. He was then started on Vancomycin p.o. for antibiotics as well. - The patient is on mechanical ventilation with volume control. His oxygenation has been improving and so he has been weaned down on the ventilator and is currently on settings of 440/25/60 and 8. His PEEP has been able to wean down and his FiO2 has been able to wean down. We did have to increase his tidal volume slightly but we have been maintaining his plateau pressures less than 30. - Continue to monitor daily arterial blood gases while intubated. - Continue with vent bundle care with head of bed elevation and Chlorhexidine mouthwash. Renal - patient with acute renal failure initially in the setting of prerenal azotemia, and then possible ATN with his shock. The patient's renal function has been improving and his hyperkalemia has also improved. The patient also has been hyperglycemic during this admission requiring insulin coverage, although he does not have a prior history of diabetes. - The patient is also on stress dose steroids with Hydrocortisone 15 mg q. 8 hours which he will complete a 3-day course. - Continue to monitor urine output, renal function and electrolytes which have been improving slowly. - The patient's fingerstick glucose control has improved. He is mildly hypoglycemic today and so will hold his a.m. Levemir and continue with his q. h.s. Levemir but he will be started on tube feeds. GI - The patient will be restarted on tube feeds with Glucerna and will titrate up as tolerated with monitoring of residuals. - Continue his PPI twice daily. Heme - patient with thrombocytopenia as well as coagulopathy and decreased fibrinogen consistent with the mild disseminated intravascular coagulation. He was given one unit of platelet transfusion yesterday with improvement and he did receive one dose of his Lovenox yesterday. His platelets have trended down, however this morning, and his hemoglobin is also trending down. Given his demand ischemia, he will be given one unit of PRBCs and then will follow up with repeat CBC. - Continue to monitor his coags, fibrinogen, and CBC and transfuse as needed. We will attempt to continue anticoagulation with Lovenox if tolerated. DVT PROPHYLAXIS on Lovenox, TEDS and SCDs. CODE STATUS full code. Healthcare proxy is his brother, Dr. Saleem. Total critical care time not including any procedures approximately 40 minutes. MTDD
[2020-08-01] MEDS: LATANOPROST 0.005% OPHTH SOLN 2.5 ML OU SCH (21:32)
[2020-08-02] VITALS (39 sets, daily range): BP systolic 87–125; BP diastolic 46–59; O2SAT 91–92
[2020-08-02] MEDS: VANCOMYCIN ORAL SOL 250MG/5ML ORAL SYRINGE PO SCH ×4 (00:13→18:34)
[2020-08-02] MEDS: fentaNYL 100 MCG/2 ML INJECTION (J3010) IV PRN ×5 (00:14→07:10)
[2020-08-02] MEDS: PIPERACILLIN/TAZOBACTAM SOD 2.25 GM in D5W MINI-BAG PLUS 50 ML IV SCH ×2 (02:16→10:55)
[2020-08-02] MEDS: HYDROCORTISONE 100 MG/2 ML VIAL (J1720 PER 1) IV SCH (02:16)
[2020-08-02] MEDS: HumaLOG INSULIN (NovoLOG) PER UNIT SC SCH ×6 (02:17→22:33)
[2020-08-02 05:16] LABS: BASO % 0.2 % (0.0-1.0); EOS % 0.1 % (0.0-3.0); HEMATOCRIT 32.6 % (42.0-52.0); HEMOGLOBIN 10.8 g/dl (13.5-17.5); LYMPH # 0.6 10^3/uL (1.5-5.0); LYMPH % 3.6 % (24.0-44.0); MEAN CORPUSCULAR HEMOGLOBIN 30.8 pg (27.0-33.0); MEAN CORPUSCULAR HGB CONC 33.1 g/dl (32.0-36.5); MEAN CORPUSCULAR VOLUME 92.9 fl (80.0-96.0); MONO # 0.4 10^3/uL (0.0-0.8); MONO % 2.5 % (0.0-5.0); NEUTROPHILS # 15.1 10^3/uL (1.5-8.5); NEUTROPHILS % 90.9 % (36.0-66.0); RED BLOOD COUNT 3.51 10^6/uL (4.30-6.10); WHITE BLOOD COUNT 16.6 10^3/uL (4.0-10.0)
[2020-08-02 05:27] LABS: ABG BASE EXCESS -6.7 (-2.0-2.0); ABG PARTIAL PRESSURE CO2 33.4 mmHg (35.0-45.0); ABG TOTAL CO2 19.1 MEQ/L (23.0-31.0)
[2020-08-02 05:28] LABS: INR 1.09; PROTHROMBIN TIME 14.3 SECONDS (12.5-14.3)
[2020-08-02 05:32] LABS: PLATELET COUNT, AUTOMATED 30 10^3/uL (150-450)
[2020-08-02 05:38] LABS: BLOOD UREA NITROGEN 51 MG/DL (7-18); CALCIUM LEVEL 6.4 MG/DL (8.8-10.2); CARBON DIOXIDE LEVEL 22 MEQ/L (21-32); CHLORIDE LEVEL 109 MEQ/L (98-107); CREATININE FOR GFR 1.24 MG/DL (0.70-1.30); GLOMERULAR FILTRATION RATE > 60.0 (>42); GLUCOSE, FASTING 179 MG/DL (70-100); POTASSIUM SERUM 4.8 MEQ/L (3.5-5.1); SODIUM LEVEL 137 MEQ/L (136-145)
[2020-08-02] MEDS: VASOPRESSIN INJ 20 UNITS in NS 499 ML IV SCH (06:10)
[2020-08-02] MEDS: MIDAZOLAM INJ 2MG/2ML VIAL (J2250 PER 1MG) IV PRN (06:22)
[2020-08-02] MEDS: MIDAZOLAM HCL 100 MG in D5W 80 ML IV SCH ×2 (07:02→14:50)
--- NOTE | 2020-08-02 07:49 | REP ---
INDICATION: intubated pt. increased peak pressures COMPARISON: 07/28/2020 TECHNIQUE: Portable AP view of the chest FINDINGS: Endotracheal tube appears to be at the level of the fina. Nasogastric tube courses below left hemidiaphragm. Cardiac silhouette is normal. Diffuse bilateral alveolar infiltrates and left lower lobe consolidation again noted. No effusion. No pneumothorax. Skeletal structures are intact. IMPRESSION: 1. Endotracheal tube appears to be at the fina and may warrant re-evaluation. 2. Diffuse bilateral parenchymal opacities and left lower lobe consolidations similar to prior examination. <Electronically signed by Artem Esposito > 08/02/20 [id number]
[2020-08-02] MEDS: ENOXAPARIN 60MG/0.6ML SYRINGE (J1650 PER 10MG) SC SCH ×2 (09:00→22:28)
[2020-08-02] MEDS: CHLORHEXIDINE GLUCONATE 0.12 % 15ML UDC (PERIDEX ORAL RINSE) SSP SCH ×2 (10:16→22:26)
[2020-08-02] MEDS: PANTOPRAZOLE 40MG VIAL (C9113 PER 1) IV SCH ×2 (10:17→22:28)
[2020-08-02] MEDS: VANCOMYCIN HCL 1,000 MG, VIAL MATE ADAPTER 1 EACH in D5W 250 ML IV SCH ×2 (10:17→12:30)
[2020-08-02] MEDS: ASPIRIN 81 MG CHEW TABLET PEG SCH (10:17)
[2020-08-02] MEDS: COSOPT OCUMETER PLUS 10ML (DORZOLAMIDE/TIMOLOL) OU SCH (10:19)
[2020-08-02] MEDS: LEVEMIR (INSULIN DETEMIR) 1 UNITS/0.01ML SC SCH ×2 (10:33→22:27)
--- NOTE | 2020-08-02 15:55 | REP ---
INDICATION: S/P CVC Placement COMPARISON: None. TECHNIQUE: Portable AP view of the chest FINDINGS: Endotracheal tube cysts just above the fina. Nasogastric tube courses below left hemidiaphragm. Left IJ line with tip in the SVC. Lung somers demonstrate minimally improved aeration with continued bilateral parenchymal opacities. IMPRESSION: 1. Endotracheal tube again just above the fina warrants re-evaluation. 2. Minimally improved aeration with continued diffuse bilateral pulmonary opacities. <Electronically signed by Artem Esposito > 08/02/20 [id number]
[2020-08-02] MEDS: PIPERACILLIN/TAZOBACTAM SOD 3.375 GM in D5W MINI-BAG PLUS 50 ML IV SCH ×2 (18:35→22:36)
--- NOTE | 2020-08-02 19:51 | CCN ---
CRITICAL CARE NOTE DATE: 08/02/2020 SUBJECTIVE: The patient was seen and examined this morning during bedside rounds. Overnight the patient had episodes of tachypnea and vent desynchrony where he was noted to have increased peak pressures. He desaturated during these episodes and he did require increased FiO2. With additional sedation vent desynchrony improved, and he was able to be weaned down on his FiO2 although at higher amount this morning than he has been previously. After his Propofol was changed to Versed, his blood pressure improved and after he was transfused the one unit of PRBC, the patient was able to be weaned off of Levophed and Vasopressin and he has been off of pressors since yesterday evening. The patient also has been afebrile now in the past 24 hours. OBJECTIVE: PHYSICAL EXAMINATION: VITAL SIGNS: Temperature 99, pulse 96, respirations 28, blood pressure 95/51, O2 sat 89% on 90% FiO2. INTAKE AND OUTPUT: In 2.9 liters, out 1 liter, net positive 1.8 liters. GENERAL APPEARANCE: The patient is intubated and sedated. He is responsive to painful stimuli but is not opening his eyes spontaneously and does not follow commands. HEENT: Normocephalic and atraumatic. Pupils are reactive to bilaterally. NECK: Supple. Trachea is midline. The patient has a large area of ecchymosis on the right neck with an area of hematoma, although it appears softer and improving slightly. CARDIOVASCULAR: Regular rate and rhythm, normal S1, S2, unable to appreciate any murmurs. PULMONARY: Coarse ventilator breath sounds bilaterally with no wheezing or rhonchi. There are no crackles at the bases. ABDOMEN: Soft, nontender, nondistended. There are bowel sounds present. The patient has been passing a large amount of gas. EXTREMITIES: There is +1 pitting edema in the bilateral lower extremities. The patient has edema in the upper extremities of the left arm more than the right as well as a large area of ecchymosis in the left arm in the dependent region extending from his forearms up to his axilla. LABORATORY STUDIES: WBC 16.6, hemoglobin 10.8, platelet count 30. Chemistries: Sodium is 137, potassium is 4.8, chloride is 109, bicarbonate is 22, BUN is 51, creatinine is 1.24, glucose is 179. INR is 1.09. Fibrinogen is 231. Arterial blood gases: PH 7.350, pco2 32.9, pO2 87. IMAGING: Chest x-ray this morning shows ET tube one and a half cm above the fina. There is an OG tube in place coursing below the diaphragm. There are bilateral alveolar infiltrates noted bilaterally which are unchanged from his previous with a more focal consolidation in the left lower lobe. ASSESSMENT AND PLAN: The patient is a 74-year-old male with a past medical history of asthma, hypertension, prostate cancer, who presented with acute hypoxic respiratory failure in the setting of COVID-19 pneumonia. The patient completed a 10-day course of Remdesivir as well as Dexamethasone and received a dose of Tocilizumab for his severe hypoxic respiratory failure. The patient however continued to decompensate and required intubation and mechanical ventilation. Neurologic - The patient is currently intubated and sedated. He was changed from Propofol to a Versed drip for sedation given his episodes of hypotension. -The patient did require increasing amounts of Versed as well as significant p.r.n. doses and Fentanyl p.r.n. for vent desynchrony. -We will continue with Versed for sedation and Fentanyl p.r.n. for analgesia. The patient does have issues with sedation weaning in terms of tachypnea and breath stacking and does desaturate which will complicate his weaning process from the ventilator. Cardiac - patient with shock in the setting of hypovolemia as well as septic shock. He was on Vasopressors with Levophed and Vasopressin which he has now been off of since yesterday evening. The patient also had demand ischemia initially in the setting of his shock which had been improving. The patient had a triple lumen placed initially in the femoral region. As he does continue to need venous access as well for a potential need of vasopressors, we will place a triple lumen in the left IJ and remove his femoral triple lumen. -We will continue to monitor blood pressure to maintain a MAP above 65. The patient's IJ does appear very collapsed still and suspect he may be somewhat intravascularly depleted still, although he does have significant third spacing and edema, likely related to his hypoalbuminemia. -We will continue statin. His Aspirin is on hold due to his thrombocytopenia. Pulmonary - patient with acute hypoxic respiratory failure in the setting of COVID-19 pneumonia with possible superimposed bacterial pneumonia and ARDS. -The patient will be continued on broad spectrum antibiotics for pneumonia with Zosyn and Vancomycin. He will likely need to complete a 10-day course for his pneumonia. -Continue on mechanical ventilation - The patient initially had been doing well in terms of weaning down his FiO2, however he had episode of vent desynchrony overnight and required increased FiO2. He was able to be weaned down now to 80% but his PEEP was increased to 10, and he was then able to be weaned down even further to an FiO2 of 70%. We will continue to wean down his FiO2 and PEEP as tolerated. He is on current settings now of 440/23/70 and 10. We will continue to maintain his plateau pressures less than 30. Imaging today appears unchanged from prior. -Continue with daily ABGs while intubated. -Continue with vent bundle care with head of bed elevation and Chlorhexidine mouthwash. 1GI the patient was found to be positive for C-difficile. He was started on p.o. Vancomycin and his fevers as well as leukocytosis have been improving. He will need to be continued on p.o. Vancomycin for his C-diff with contact precautions. -The patient was also started on tube feeds with Glucerna which he has been tolerating. His tube feeds were increased to 45 mL per hour and with no significant residuals. We will continue monitoring and will increased his tube feeds to 55 mL an hour. -Continue his PPI twice daily. Renal the patient had acute kidney injury in the setting of prerenal azotemia as well as possible ATN with his shock. His renal function has been improving. The patient's hyperglycemia has also been improving with Levemir and sliding scale coverage. -We will continue monitoring his in's and out's as well as electrolytes and treat accordingly. Heme - patient with continued thrombocytopenia, likely multifactorial in the setting of his severe sepsis as well as from medications. He also has had anemia and disseminated intravascular coagulation although his fibrinogen is improving. He is status post one unit of PRBC transfusion yesterday with appropriate response. He did receive a unit of platelet transfusion 2 days ago, although his platelets are now less than 50. He will be given another unit of platelet transfusion today. -We will continue to monitor his coagulopathy, CBC and fibrinogen and transfuse as needed. -The patient's Lovenox is on hold given his thrombocytopenias. He does have TEDS and SCDs currently. DVT PROPHYLAXIS: Full code. Healthcare proxy is his brother, Dr. Weaver. Prognosis: Patient remains critically ill, prognosis is guarded Total critical care time spent not including any procedures approximately 45 minutes. KANDI
[2020-08-02] MEDS: LATANOPROST 0.005% OPHTH SOLN 2.5 ML OU SCH (21:00)
[2020-08-02] MEDS: SIMVASTATIN 20 MG TAB PO SCH (22:26)
[2020-08-03] VITALS (53 sets, daily range): BP systolic 72–121; BP diastolic 35–64
[2020-08-03] MEDS: MIDAZOLAM HCL 100 MG in D5W 80 ML IV SCH ×2 (00:02→09:54)
[2020-08-03] MEDS: NOREPINEPHRINE BITARTRATE 8 MG in D5W 492 ML IV SCH ×2 (01:41→09:05)
[2020-08-03] MEDS: HumaLOG INSULIN (NovoLOG) PER UNIT SC SCH ×4 (01:55→14:18)
[2020-08-03] MEDS ORDERED: VANCOMYCIN HCL 1,000 MG, VIAL MATE ADAPTER 1 EACH in D5W 250 ML IV SCH (04:00)
[2020-08-03] MEDS: VANCOMYCIN ORAL SOL 250MG/5ML ORAL SYRINGE PO SCH ×3 (05:04→11:35)
[2020-08-03] MEDS: PIPERACILLIN/TAZOBACTAM SOD 3.375 GM in D5W MINI-BAG PLUS 50 ML IV SCH ×2 (05:04→11:34)
[2020-08-03 05:21] LABS: BASO # 0.1 10^3/uL (0.0-0.2); BASO % 0.5 % (0.0-1.0); EOS # 0.1 10^3/uL (0.0-0.5); EOS % 0.5 % (0.0-3.0); HEMATOCRIT 29.5 % (42.0-52.0); HEMOGLOBIN 9.9 g/dl (13.5-17.5); LYMPH # 0.5 10^3/uL (1.5-5.0); LYMPH % 4.9 % (24.0-44.0); MEAN CORPUSCULAR HEMOGLOBIN 32.1 pg (27.0-33.0); MEAN CORPUSCULAR HGB CONC 33.6 g/dl (32.0-36.5); MEAN CORPUSCULAR VOLUME 95.8 fl (80.0-96.0); MONO # 0.3 10^3/uL (0.0-0.8); MONO % 2.9 % (0.0-5.0); NEUTROPHILS # 9.8 10^3/uL (1.5-8.5); NEUTROPHILS % 89.8 % (36.0-66.0); RED BLOOD COUNT 3.08 10^6/uL (4.30-6.10); WHITE BLOOD COUNT 10.9 10^3/uL (4.0-10.0)
[2020-08-03 05:25] LABS: PLATELET COUNT, AUTOMATED 31 10^3/uL (150-450)
[2020-08-03 05:41] LABS: INR 1.14; PROTHROMBIN TIME 14.9 SECONDS (12.5-14.3)
[2020-08-03 05:49] LABS: CALCIUM LEVEL 6.7 MG/DL (8.8-10.2); CREATININE FOR GFR 1.33 MG/DL (0.70-1.30); GLOMERULAR FILTRATION RATE 55.7 (>42); POTASSIUM SERUM 5.2 MEQ/L (3.5-5.1)
[2020-08-03 05:53] LABS: ABG BASE EXCESS -5.3 (-2.0-2.0); ABG HCO3 20.7 MEQ/L (22.0-26.0); ABG O2 SATURATION 94.9 % (95.0-99.0); ABG PARTIAL PRESSURE CO2 42.4 mmHg (35.0-45.0); ABG PARTIAL PRESSURE O2 79.2 mmHg (75.0-100.0); ABG STANDARD HCO3 20.1 MEQ/L (22.0-26.0); ABG pH (ARTERIAL) 7.307 UNITS (7.350-7.450)
[2020-08-03] MEDS: MIDAZOLAM INJ 2MG/2ML VIAL (J2250 PER 1MG) IV PRN (06:48)
[2020-08-03] MEDS: fentaNYL 100 MCG/2 ML INJECTION (J3010) IV PRN ×3 (06:48→16:01)
[2020-08-03] MEDS ORDERED: NS 500 ML IV ONE (08:00)
--- NOTE | 2020-08-03 08:18 | RO ---
OPERATIVE NOTE DATE OF OPERATION: 08/02/2020 PROCEDURE: Internal jugular central line. INDICATION: Venous access and vasopressor administration. PREPROCEDURE DIAGNOSIS: Shock. PREPROCEDURE DIAGNOSIS: Shock. ATTENDING PHYSICIAN: Wanda Aly MD CONSENT: Verbal consent was obtained from the patient's brother prior to the procedure. Indications, risks, and benefits were explained at length. PROCEDURE SUMMARY: A central line insertion practices form was completed by an independent observer. A time-out was performed prior to the procedure. Full sterile technique was maintained throughout the procedure, including surgical cap, mask, protective eyewear, full gown, and sterile gloves. The patient was placed in Trendelenburg position. The left neck region was prepped using chlorhexidine scrub and draped in sterile fashion using a fenestrated drape and a sterile probe cover employed. The left internal jugular vein was identified using ultrasound. Anesthesia was achieved over the vein using 1% Lidocaine. Using real-time [id number] guidance, the introducer needle was inserted into the internal jugular vein under direct ultrasound visualization. Venous blood was withdrawn. The syringe was removed and a guidewire was advanced into the introducer needle. The introducer needle was removed over the guidewire. A small incision was made at the skin surface with a scalpel, and a dilator was exchanged over the guidewire. After appropriate dilation was obtained, the dilator was exchanged over the wire for a triple lumen central venous catheter. The wire was removed and a catheter was sutured in place at 19 cm. A sterile chlorhexidine-impregnated dressing was placed over the catheter at the insertion site. The patient tolerated the procedure without any hemodynamic compromise. At the time of procedure completion, all ports were aspirated and flushed properly. Postprocedure chest x-ray shows the left internal jugular (IJ) with the tip in the SVC. Estimated blood loss was less than 3 mL.
[2020-08-03] MEDS ORDERED: ROCURONIUM BROMIDE 50 MG/5 ML VIAL IV ONE (08:30)
[2020-08-03] MEDS ORDERED: ROCURONIUM BROMIDE 50 MG/5 ML VIAL As Ordered ONE (08:33)
[2020-08-03] MEDS ORDERED: CISATRACURIUM 10MG/ML 20 ML VIAL IV ONE (08:45)
[2020-08-03] MEDS ORDERED: CISATRACURIUM 10MG/ML 20 ML VIAL As Ordered ONE (08:47)
[2020-08-03] MEDS: ENOXAPARIN 60MG/0.6ML SYRINGE (J1650 PER 10MG) SC SCH (09:00)
--- NOTE | 2020-08-03 09:16 | REP ---
INDICATION: Desaturation COMPARISON: 08/02/2020 TECHNIQUE: Portable AP view of the chest FINDINGS: Endotracheal tube is at the level of the fina. Nasogastric tube in satisfactory position. Left IJ line with tip in the SVC remains stable. Cardiac silhouette is normal. Diffuse bilateral airspace disease may be slightly more consolidative than prior exam. No effusion. No pneumothorax. IMPRESSION: 1. Endotracheal tube approaches the fina and may warrant repositioning. 2. Diffuse bilateral opacities with more consolidative changes in the right perihilar and left basilar regions. <Electronically signed by Artem Esposito > 08/03/20 [id number]
[2020-08-03] MEDS ORDERED: CISATRACURIUM 200 MG in NS 480 ML IV SCH (10:00)
[2020-08-03 10:40] LABS: ABG BASE EXCESS -6.5 (-2.0-2.0); ABG O2 SATURATION 90.4 % (95.0-99.0); ABG PARTIAL PRESSURE CO2 57.6 mmHg (35.0-45.0); ABG PARTIAL PRESSURE O2 66.3 mmHg (75.0-100.0); ABG STANDARD HCO3 19.1 MEQ/L (22.0-26.0); ABG TOTAL CO2 23.7 MEQ/L (23.0-31.0)
[2020-08-03 10:43] LABS: ABG pH (ARTERIAL) 7.199 UNITS (7.350-7.450)
[2020-08-03] MEDS: ASPIRIN 81 MG CHEW TABLET PEG SCH (11:32)
[2020-08-03] MEDS: CHLORHEXIDINE GLUCONATE 0.12 % 15ML UDC (PERIDEX ORAL RINSE) SSP SCH (11:32)
[2020-08-03] MEDS: LEVEMIR (INSULIN DETEMIR) 1 UNITS/0.01ML SC SCH (11:33)
[2020-08-03] MEDS: PANTOPRAZOLE 40MG VIAL (C9113 PER 1) IV SCH (11:33)
[2020-08-03] MEDS: COSOPT OCUMETER PLUS 10ML (DORZOLAMIDE/TIMOLOL) OU SCH (11:34)
[2020-08-03 12:03] LABS: HEMATOCRIT 31.9 % (42.0-52.0); HEMOGLOBIN 10.3 g/dl (13.5-17.5); MEAN CORPUSCULAR HEMOGLOBIN 31.5 pg (27.0-33.0); MEAN CORPUSCULAR HGB CONC 32.3 g/dl (32.0-36.5); MEAN CORPUSCULAR VOLUME 97.6 fl (80.0-96.0); RED BLOOD COUNT 3.27 10^6/uL (4.30-6.10); WHITE BLOOD COUNT 4.9 10^3/uL (4.0-10.0)
[2020-08-03 12:29] LABS: PLATELET COUNT, AUTOMATED 18 10^3/uL (150-450)
[2020-08-03 12:36] LABS: ATYPICAL LYMPH 1 % (0-5); EOSINOPHILS 1 % (0-3); LYMPHOCYTES 12 % (16-44); METAMYELOCYTES 3 % (0-0); MONOCYTES 3 % (0-5); NEUTROPHILS 66 % (28-66); PLATELET ESTIMATE MARKED DECREASE (NORMAL); POLYCHROMASIA 2+
[2020-08-03 12:37] LABS: ANISOCYTOSIS 1+
[2020-08-03 12:55] LABS: ABG BASE EXCESS -5.6 (-2.0-2.0); ABG HCO3 21.7 MEQ/L (22.0-26.0); ABG O2 SATURATION 90.9 % (95.0-99.0); ABG PARTIAL PRESSURE CO2 50.8 mmHg (35.0-45.0); ABG PARTIAL PRESSURE O2 62.7 mmHg (75.0-100.0); ABG STANDARD HCO3 19.7 MEQ/L (22.0-26.0); ABG TOTAL CO2 23.3 MEQ/L (23.0-31.0); ABG pH (ARTERIAL) 7.249 UNITS (7.350-7.450)
--- NOTE | 2020-08-03 17:40 | CCN ---
CRITICAL CARE NOTE DATE: 08/03/2020 Patient was seen and examined this morning during bedside rounds. Overnight patient had significant desaturation with ventilator desynchrony and increasing peak pressures. He was given his as-needed Versed as well as fentanyl with minimal improvement in his oxygenation. He was increased to 100% FiO2 and a positive end-expiratory pressure (PEEP) of 12 and remained with desaturations in the high 70s. He was also hypotensive again and required reinitiation of the Levophed. This morning, patient had been bagged, and his oxygenation had briefly gone into the 80s and went down again after bagging. He was on 100% FiO2, and his PEEP was increased from the 12 to the 15. He was given a dose of rocuronium for paralytic, and his oxygen saturations improved into the high 80s. He was then started on Nimbex, and his oxygenation did improve. Patient, however, was continuing to require increased amount of Levophed for blood pressure support. PHYSICAL EXAMINATION: VITAL SIGNS: Temperature 99.1, pulse 92, respirations 26-32, blood pressure 100/53, oxygen 85% on 100% FiO2. Intake 2.0 liters, output 1.3 liters. GENERAL: Patient is intubated and sedated. He is not responding to any painful stimuli and is not opening his eyes spontaneously. HEENT: Normocephalic, atraumatic. Pupils are slugging but reactive to light bilaterally. Neck is supple. Trachea is midline. Patient has an area of ecchymosis on the right neck with an area of hematoma, which appears softer. CARDIOVASCULAR: Regular rate and rhythm. Normal S1, S2. Unable to appreciate any murmurs. PULMONARY: Coarse ventilator breath sounds bilaterally with some diminished breath sounds at the bases. There is no wheezing or rhonchi. ABDOMEN: Soft, nontender, nondistended. There are some hypoactive bowel sounds present. EXTREMITIES: There is +1-2 pitting edema in the bilateral lower extremities as well as increased pitting edema in the upper extremities, left arm more than the right. There is a large area of ecchymosis in the left in the dependent region, extending from his forearm up to his left axilla. LABORATORY DATA: WBC 10.9, hemoglobin 9.9, platelets 31. Chemistry: Sodium 136, potassium 5.2, chloride 108, bicarbonate 26, BUN 49, creatinine 1.33, glucose 206. Calcium 6.7. INR 1.14. Fibrinogen 369. ABG: A pH 7.307, pCO2 of 42.4, pO2 of 79.2. IMAGING: Chest x-ray this morning showed endotracheal (ET) tube 1.5 cm above the fina. There is an orogastric (OG) tube in place. There are bilateral alveolar infiltrates with a more focal consolidation in the left lower lobe in the right perihilar region. There is no pneumothorax. ASSESSMENT AND PLAN: The patient is a 74-year-old male with a past medical history of asthma, hypertension, prostate cancer, who presented with acute hypoxemic respiratory failure in the setting of COVID-19 pneumonia. Patient had completed a 10-day course of remdesivir as well as dexamethasone and received a dose of tocilizumab for his severe hypoxemic respiratory failure. The patient continued to decompensate, however, and required intubation and mechanical ventilation on 07/28/20. 1. Neurologic. Patient is currently intubated and sedated. He is on a Versed drip with fentanyl as needed for analgesia. He was started on Nimbex for paralytic given his worsening hypoxia and ventilator desynchrony with breath stacking. 2. Cardiac. Patient initially had been weaned off of pressors. Overnight, however, he was restarted on Levophed, and he has been requiring increasing pressor requirements. He also does have worsening thrombocytopenia, and his aspirin is still on hold. - Discussed with the patient's healthcare proxy, his brother, Dr. Montalvo about his goals of care and his worsening hypotension and acidosis. Patient's brother states at this time, given potential for possible cardiac arrest, and with his poor prognosis he would be DO NOT RESUSCITATE 3. Pulmonary. Patient with acute hypoxemic respiratory failure in the setting of COVID-19 pneumonia with possible superimposed bacterial pneumonia and acute respiratory distress syndrome (ARDS). - Patient is on broad-spectrum antibiotics with vancomycin and Zosyn. - He is on mechanical ventilation with volume control. He was weaned down yesterday on his FiO2; however, overnight he had worsening hypoxia and required increase to FiO2 of 100%, and his PEEP had gone up as well to a PEEP of 12. Patient has had worsening increase in his peak pressures as well as his plateau. His x-ray appears unchanged from his initial intubation. - Discussed with the patient's brother about his worsening hypoxia and increased ventilator requirements. His bother had stated that patient would not have wanted tracheostomy or long-term ventilation. The plan is for later after he has had his last rites that we will plan for palliative extubation, where his pressors will also be discontinued, and patient will be given fentanyl as needed for his palliative extubation with the discontinuation of other medications. 4. Gastrointestinal (GI). Patient was found to be positive for Clostridium (C) difficile. He is on oral vancomycin, and his leukocytosis and fevers have been improving. He was also on tube feeds, which he was tolerating with Glucerna. - Patient is on proton pump inhibitor (PPI) twice a day. 5. Renal. Patient had acute kidney injury (ERNA) in the setting of prerenal azotemia as well as possible acute tubular necrosis (ATN) with his shock. His renal function had been improving, and his hyperglycemia has also been improving with Levemir and sliding-scale coverage. 6. Hematology. Patient with continued thrombocytopenia, likely multifactorial in the setting of his severe sepsis as well as from medications. He did also have disseminated intravascular coagulation (DIC), although his fibrinogen has been improving. He did receive this admission 1 unit packed red blood cells (PRBC) transfusion as well as a total of 2 units of platelets. His thrombocytopenia has worsened; however, he does not appear to be actively bleeding, and so will hold off on further transfusion at this point. 7. Deep venous thrombosis (DVT) prophylaxis. Thromboembolic deterrent (TEDs) and sequential compression devices (SCDs). His Lovenox has been on hold given his thrombocytopenia. 8. Goals of care. Patient was made DO NOT RESUSCITATE this morning by his brother, Dr. Weaver. Patient's brother was updated on his condition later on in the afternoon, and the decision was made once he has had his last rites that he will be palliatively extubated to comfort measures only. TOTAL CRITICAL CARE TIME SPENT, NOT INCLUDING PROCEDURES: Approximately 50 minutes. KANDI
[2020-08-03 17:48] LABS: INFLUENZA A AMPLIFICATION NEGATIVE (NEGATIVE); INFLUENZA B AMPLIFICATION NEGATIVE (NEGATIVE)
--- NOTE | 2020-08-03 22:00 | DS.PDOC ---
Discharge Summary General Date of Admission Jul 15, 2020 at 22:24 Date of Discharge 08/03/20 Discharge Summary PROCEDURES PERFORMED DURING STAY: Endotracheal intubation, femoral central line placement, LIJ central line placement ADMITTING DIAGNOSES: 1. COVID-19 PNA 2. Acute hypoxemic respiratory failure 3. Bacterial Pneumonia 4. Acute renal failure DISCHARGE DIAGNOSES: 1. COVID-19 PNA 2. Acute hypoxemic respiratory failure 3. Bacterial Pneumonia 4. Acute renal failure 5. Septic Shock 6. C. difficile infection 7. DIC 8. Thrombocytopenia 9. ARDS COMPLICATIONS/CHIEF COMPLAINT: Acute Asthma,Covid 19. HISTORY OF PRESENT ILLNESS: Patient is a 74-year-old gentleman who developed cough productive of white sputum and shortness of breath 3 days prior to admission and went to an urgent care center where he was diagnosed with COVID 19. He is not sure where he got the infection as he reports practicing self- isolation except for going to the grocery stores and eating out at restaurants occasionally. He has had fevers but denies having chills, nausea, vomiting or diarrhea. Sense of smell is intact, but he reports that his sense of taste is no longer intact. He denies having any rashes or lesions on his skin. Over the last few days his shortness of breath became worse despite using his asthma inhalers more than 4 times a day, therefore he decided to come to the hospital for evaluation. Patient was hypoxic in ED requiring nasal cannula oxygen supplementation and he was admitted to hospital. HOSPITAL COURSE: He was initially admitted to medical-surgical COVID unit on isolation and treated with dexamethasone as well as remdesivir. The patient completed his ten day course of remdesivir, however, continued to have worsening requiring increasing amounts of oxygen supplementation as well as increased inflammatory markers. He was given a dose of tocilizumab on 07/26/20 and he was transferred to the ICU for further monitoring. He was also continued on Lovenox for anticoagulation. He was initially on weight-based and then increased to full-dose Lovenox given his worsening hypoxia. The patient was requiring high amounts of oxygen requirements with highflow NC Vapotherm. He was on 90-100% FiO2 and 40 liters a minute. He also continued to be tachypneic and tachycardic as well as feeling weakness and continued shortness of breath with difficulty breathing. The patient has been encouraged for awake pronation although he has difficulty tolerating and so has not been compliant with awake pronation and not compliant with using his incentive spirometer as well. On 07/28/20 the patient was reporting worsening work of breathing and he also appeared to be more confused. Given his respiratory distress and change in mental status the decision was made for an emergent intubation performed by anesthesia. The patient had also lost IV access yesterday evening and so he required emergent placement of a central line catheter in the right femoral region. On mechanical ventilation patient was noted to be in ARDS. He required deep sedation for his severe hypoxemic respiratory failure and vent dyssynchrony. Patient was also hypotensive in the setting of volume depletion and then likely from septic shock. He was requiring vasopressors to maintain MAP above 65. He also had ERNA likely pre-renal azotemia from hypovolemia and also possible ATN. Patient was found to then be C. diff positive and started on vancomycin PO in addition to antibiotics he was started on post intubation for bacterial pneumonia. Patient's course was also complicated by thrombocytopenia and DIC requiring platelet calderon sfusion and 1 unit PRBC. Patient was having improvement in renal function and his oxygenation initially, as well as being able to be weaned off of pressors for a period of time. However he then appeared to have worsening ARDS with likely fibrotic stage with worsening hypoxia and decreased compliance. He was requiring neuromuscular blockage today for his severe ARDS. He was then found to require pressors again for shock. Patient's brother Dr. Weaver was updated on his condition this morning and decision was made to make patient DNR. Later in the afternoon given his worsening shock the decision was made by his brother for palliative extubation and [employer]. Patient was palliatively extubated in afternoon and time of was 4:19PM. His family was [facility] DISCHARGE MEDICATIONS: None ALLERGIES: Please see below. PHYSICAL EXAMINATION ON DISCHARGE: VITAL SIGNS: Please see below. GENERAL: Patient is intubated and sedated. He is not responding to any painful stimuli and is not opening his eyes spontaneously. HEENT: Normocephalic, atraumatic. Pupils are sluggish but reactive to light bilaterally. Neck is supple. Trachea is midline. Patient has an area of ecchymosis on the right neck with an area of hematoma, which appears softer. CARDIOVASCULAR: Regular rate and rhythm. Normal S1, S2. Unable to appreciate any murmurs. PULMONARY: Coarse ventilator breath sounds bilaterally with some diminished breath sounds at the bases. There is no wheezing or rhonchi. ABDOMEN: Soft, nontender, nondistended. There are some hypoactive bowel sounds present. EXTREMITIES: There is +1-2 pitting edema in the bilateral lower extremities as well as increased pitting edema in the upper extremities, left arm more than the right. There is a large area of ecchymosis in the left in the dependent region, extending from his forearm up to his left axilla. LABORATORY DATA: Please see below. DISCHARGE PLAN: None DISPOSITION: 20 . DISCHARGE CONDITION: TIME SPENT ON DISCHARGE: Greater than 30 minutes. Vital Signs/I&Os Vital Signs Date Time Temp Pulse Resp B/P (MAP) Pulse Ox O2 Delivery O2 Flow Rate FiO2 08/03/20 16:06 29 08/03/20 16:00 98.2 79 86/48 (61) 95 Ventilator 80 07/29/20 18:30 100.0 I&O- Last 24 Hours up to 6 AM 08/03/20 06:00 Intake Total 2539.5 ml Output Total 1405 ml Balance 1134.5 ml Laboratory Data Labs 24H Laboratory Tests 2 08/02/20 22:02: Bedside Glucose (Misc Panel) 162H 08/03/20 01:50: Bedside Glucose (Misc Panel) 190H 08/03/20 04:45: Immature Granulocyte % (Auto) 1.4, Neutrophils (%) (Auto) 89.8H, Lymphocytes (%) (Auto) 4.9L, Monocytes (%) (Auto) 2.9, Eosinophils (%) (Auto) 0.5, Basophils (%) (Auto) 0.5, Neutrophils # (Auto) 9.8H, Lymphocytes # (Auto) 0.5L, Monocytes # (Auto) 0.3, Eosinophils # (Auto) 0.1, Basophils # (Auto) 0.1, Nucleated Red Blood Cells % (auto) 68.6H, Prothrombin Time 14.9H, Prothromb Time International Ratio 1.14, Anion Gap 2L, Glomerular Filtration Rate 55.7, Calcium Level 6.7L 08/03/20 05:25: Blood Gas Bicarbonate Standard 20.1L, Arterial Blood pH 7.307L, Arterial Blood Partial Pressure CO2 42.4, Arterial Blood Partial Pressure O2 79.2, Arterial Blood Total CO2 22.0L, Arterial Blood HCO3 20.7L, Arterial Blood Base Excess - 5.3L, Arterial Blood Oxygen Saturation 94.9L 08/03/20 10:30: Blood Gas Bicarbonate Standard 19.1L, Arterial Blood pH 7.199*L, Arterial Blood Partial Pressure CO2 57.6H, Arterial Blood Partial Pressure O2 66.3L, Arterial Blood Total CO2 23.7, Arterial Blood HCO3 22.0, Arterial Blood Base Excess - 6.5L, Arterial Blood Oxygen Saturation 90.4L 08/03/20 11:19: Bedside Glucose (Misc Panel) > 600*H 08/03/20 11:24: Bedside Glucose (Misc Panel) 176H 08/03/20 11:30: Neutrophils (%) (Auto) , Nucleated Red Blood Cells % (auto) 112.3H, Neutrophils 66, Band Neutrophils 14H, Lymphocytes (Manual) 12L, Monocytes (Manual) 3, Eosinophils (Manual) 1, Metamyelocytes 3H, Atypical Lymphocytes 1, Polychromasia 2+, Anisocytosis 1+, Platelet Estimate MARKED DECREASE, Immature Platelet Fraction 14.1H, Fibrinogen 369, Lactic Acid Level 1.9 08/03/20 12:35: Blood Gas Bicarbonate Standard 19.7L, Arterial Blood pH 7.249*L, Arterial Blood Partial Pressure CO2 50.8H, Arterial Blood Partial Pressure O2 62.7L, Arterial Blood Total CO2 23.3, Arterial Blood HCO3 21.7L, Arterial Blood Base Excess - 5.6L, Arterial Blood Oxygen Saturation 90.9L 08/03/20 13:58: Bedside Glucose (Misc Panel) 144H 08/03/20 16:05: Influenza Type A (RT-PCR) NEGATIVE, Influenza Type B (RT-PCR) NEGATIVE CBC/BMP Laboratory Tests 08/03/20 04:45 08/03/20 11:30 FSBS Laboratory Tests Test 08/02/20 22:02 08/03/20 01:50 08/03/20 11:19 08/03/20 11:24 Range/Units Bedside Glucose (Misc Panel) 162 190 > 600 176 83-110 MG/DL Test 08/03/20 13:58 Range/Units Bedside Glucose (Misc Panel) 144 83-110 MG/DL Microbiology Microbiology 07/31/20 Blood Culture - Preliminary, Resulted No Growth after 72 hours. All specime... 07/28/20 Gram Stain - Final, Complete 07/28/20 Sputum Culture - Final, Complete Discharge Medications Scheduled Benzonatate (Benzonatate) 100 Mg Capsule, 100 MG PO TID, (Reported) Dorzolamide HCl/Timolol Maleat (Dorzolamide-Timolol Eye Drops) 10 Ml Drops, 1 DROP OU DAILY, (Reported) Doxycycline Hyclate (Doxycycline Hyclate) 100 Mg Capsule, 100 MG PO BID, (Reported) STARTED 07/11/20 X 7DAYS Fluticasone Propionate (Flovent Hfa) 44 Mcg/Act Aer.w.adap, 2 PUFF INH BID Latanoprost/Pf (Latanoprost 0.005% Eye Drop) 7.5 Ml Drops, 1 DROP OU QHS, (Reported) Montelukast Sodium (Montelukast Sodium) 10 Mg Tablet, 10 MG PO QHS, (Reported) Nabumetone (Nabumetone) 500 Mg Tablet, 500 MG PO BID, (Reported) Omeprazole (Omeprazole) 40 Mg Capsule.dr, 40 MG PO DAILY, (Reported) Prednisone (Prednisone) 20 Mg Tablet, 40 MG PO DAILY, (Reported) STARTED 07/11/20 X 5 DAYS Salmeterol (Serevent Diskus) 50 Mcg Blst.w.dev, 1 PUFF INH BID, (Reported) Simvastatin (Simvastatin) 20 Mg Tablet, 20 MG PO Q2D, (Reported) BEDTIME Scheduled PRN Albuterol Sulfate (Albuterol Sulfate Hfa) 8.5 Gm Hfa.aer.ad, 1 PUFF INH Q4H PRN for SHORTNESS OF BREATH, (Reported) Tramadol HCl (Tramadol HCl) 50 Mg Tablet, 50 MG PO BID PRN for PAIN, (Reported) Allergies Coded Allergies: No Known Allergies (Unverified , 07/15/20) ALEXSANDER AQUINO MD Aug 03, 2020 22:00
== END 2020-08-03 18:00 | disposition expired | DRG 130 ==
LOC: M ED 20:03 → M ED INP 22:24 → M 4MAIN 07-16 03:41 → M ICU 07-25 22:27
PROVIDERS: ADMIT Internal Medicine; ATTEND Internal Medicine Pulmonary Disease
PROC: XW033E5 Introduction of Remdesivir Anti-infective into Peripheral Vein, Percutaneous Approach, New Technology Group 5 (ICD-10-PCS; principal; 2020-07-16)
PROC: 3E0333Z Introduction of Anti-inflammatory into Peripheral Vein, Percutaneous Approach (ICD-10-PCS; 2020-07-17)
PROC: 02HV33Z Insertion of Infusion Device into Superior Vena Cava, Percutaneous Approach (ICD-10-PCS; 2020-07-28)
PROC: 0BH17EZ Insertion of Endotracheal Airway into Trachea, Via Natural or Artificial Opening (ICD-10-PCS; 2020-07-28)
PROC: 5A1955Z Respiratory Ventilation, Greater than 96 Consecutive Hours (ICD-10-PCS; 2020-07-28)
PROC: 30233R1 Transfusion of Nonautologous Platelets into Peripheral Vein, Percutaneous Approach (ICD-10-PCS; 2020-07-31)
PROC: 30233N1 Transfusion of Nonautologous Red Blood Cells into Peripheral Vein, Percutaneous Approach (ICD-10-PCS; 2020-08-01)
PROC: 02HV33Z Insertion of Infusion Device into Superior Vena Cava, Percutaneous Approach (ICD-10-PCS; 2020-08-02)
DX: U07.1 COVID-19 (principal); D65 Disseminated intravascular coagulation [defibrination syndrome]; R65.21 Severe sepsis with septic shock; A41.9 Sepsis, unspecified organism; A04.72 Enterocolitis due to Clostridium difficile, not specified as recurrent; J12.89 Other viral pneumonia; E87.5 Hyperkalemia; I24.8 Other forms of acute ischemic heart disease; J45.31 Mild persistent asthma with (acute) exacerbation; J96.01 Acute respiratory failure with hypoxia; Z51.5 Encounter for palliative care; Z66 Do not resuscitate; I10 Essential (primary) hypertension; E78.5 Hyperlipidemia, unspecified; K21.9 Gastro-esophageal reflux disease without esophagitis; H40.9 Unspecified glaucoma; Z85.46 Personal history of malignant neoplasm of prostate; Z79.899 Other long term (current) drug therapy